=== PATIENT | female | born 1945 | race Caucasian/White ===

== ENCOUNTER 2020-03-12 08:56 | Outpatient (REF) | payer MEDICARE, OTHER, SELFPAY | END 2020-03-12 08:57 | disposition home or self-care (01) | LOC: HO.10HDL 08:56 | PROVIDERS: Visit Provider Obstetrics & Gynecology Female Pelvic Medicine and Reconstructive Surgery | DX: N81.2 Incomplete uterovaginal prolapse (principal) | CPT/HCPCS: 87086 ==

== ENCOUNTER 2020-04-02 08:23 | Outpatient (REF) | payer MEDICARE, SELFPAY ==
--- NOTE | 2020-04-02 08:31 | CT_ITS ---
EXAMINATION: CT CHEST WITHOUT CONTRAST CLINICAL INFORMATION: Non-small cell lung cancer COMPARISON: Previous chest CT scans most recent 01/27/2020 TECHNIQUE: Multidetector volumetric CT imaging of the chest was done. Axial MIP volume rendering provided. Sagittal and coronal reformatted images were obtained. This CT examination was performed using dose optimization techniques as appropriate, variously including the following: *Automated exposure control *Adjustment of mA and/or kV according to patient size (this includes techniques or standardized protocols for targeted exams where dose is matched to indication/reason for exam; i.e. extremities or head) *Use of iterative reconstruction technique DLP: 282 mGy-cm FINDINGS: LUNGS: There is evidence of mild emphysema. There are stable postsurgical changes to the left hemithorax following left upper lobe lobectomy with shift of the central mediastinal structures to the left and elevation of the left hemidiaphragm. There are increased peripheral interstitial markings and emphysematous or cystic changes questionable for mild interstitial lung disease. This is greatest in the left lower lobe. There is a 4 mm right middle lobe nodule axial image 305 series 5 that is stable. There is triangular shaped increased density in the peripheral or subpleural right lower lobe adjacent to the major fissure axial image 332 series 5 that is stable. MEDIASTINUM: There is a right jugular port with tip projecting over the cavoatrial junction. The heart does not appear enlarged. There is coronary artery calcification. There is no pericardial effusion. The thoracic aorta is normal in caliber. There are small mediastinal lymph nodes that are stable. Largest lymph nodes are AP window region. There are no enlarged hilar or mediastinal lymph nodes. PLEURA: There is a trace left pleural effusion that appears unchanged. There is no right pleural effusion. AXILLA: No lymphadenopathy. UPPER ABDOMEN: The the liver is low in attenuation suggestive of fatty infiltration. There may be diverticulosis of the colon. OSSEOUS STRUCTURES: There is a T9 and T10 hemivertebrae and scoliosis of the thoracic spine convex to the left. There are degenerative changes of the spine and at the hip joints. CT/CT chest wo con IMPRESSION: Stable postsurgical changes following Left upper lobe lobectomy. Stable small right pulmonary nodules. Question mild interstitial disease.
== END 2020-04-02 08:24 | disposition home or self-care (01) ==
LOC: HO.CT 08:23
PROVIDERS: PCP Internal Medicine; Visit Provider Surgery
DX: C34.12 Malignant neoplasm of upper lobe, left bronchus or lung (principal)
CPT/HCPCS: 71250

== ENCOUNTER → 2020-04-23 09:43 | Outpatient (BNVA) | payer MEDICARE, SELFPAY | PROVIDERS: PCP Internal Medicine; Referring Provider Internal Medicine; Visit Provider Surgery | DX: J44.9 Chronic obstructive pulmonary disease, unspecified (principal); C34.90 Malignant neoplasm of unspecified part of unspecified bronchus or lung | CPT/HCPCS: 99202; 99215 ==

== ENCOUNTER 2020-04-29 07:58 | Outpatient (REF) | payer MEDICARE, SELFPAY ==
--- NOTE | 2020-04-29 16:41 | PFT_ITS ---
Forced vital capacity is slightly reduced. FEV1 normal. [id number] and MVV are normal. Post bronchodilator therapy, there is no significant change. Total lung capacity is slightly reduced. Residual volume moderately reduced and diffusion capacity moderately reduced. CONCLUSION: A mild degree of restrictive pulmonary disorder is noted. No significant obstructive airway disorder. Diffusion capacity is decreased somewhat out of proportion to the other values. This may be due to interstitial lung disease/pulmonary vascular disease or non-pulmonary factors. Clinical correlation is recommended. Roberto Brink MD MSB/MODL / [id number]
== END 2020-04-29 07:59 | disposition home or self-care (01) ==
LOC: HO.RESP 07:58
PROVIDERS: PCP Internal Medicine; Visit Provider Internal Medicine Pulmonary Disease
DX: J44.9 Chronic obstructive pulmonary disease, unspecified (principal); R06.02 Shortness of breath
CPT/HCPCS: 94060; 94727; 94729; 99212

== ENCOUNTER 2020-05-17 07:55 | Outpatient (REF) | payer MEDICARE, SELFPAY ==
[2020-05-17 10:56] LABS: Alanine Aminotransferase 27 U/L (0-31); Albumin Level 4.5 g/dL (3.5-5.0); Alkaline Phosphatase 86 U/L (39-117); Anion Gap 15 (12-20); Aspartate Amino Transferase 25 U/L (5-31); Bilirubin Total 0.4 mg/dL (0.0-1.0); Blood Urea Nitrogen 8 mg/dL (9-16); Calcium 9.4 mg/dL (8.4-10.2); Carbon Dioxide 27 mmol/L (22-29); Chloride 103 mmol/L (96-108); Cholesterol 239 mg/dL; Estimated Glomerular Filt Rate > 60; Glucose Fasting 109 mg/dL (60-99); HDL Cholesterol 41 mg/dL; LDL Cholesterol Calculated 147 mg/dl; Potassium 3.9 mmol/l (3.3-5.1); Sodium 141 mmol/L (135-145); Total Protein 7.8 g/dL (6.5-8.0); Triglycerides 259 mg/dL
[2020-05-17 11:17] LABS: Free T4 (Free Thyroxine) 0.84 ng/dL (0.71-1.85); Thyroid Stimulating Hormone 1.23 uIU/mL (0.32-4.0)
== END 2020-05-17 07:56 | disposition home or self-care (01) ==
LOC: HO.10HDL 07:55
PROVIDERS: PCP Internal Medicine; Visit Provider Internal Medicine
DX: I10 Essential (primary) hypertension (principal); E03.9 Hypothyroidism, unspecified; E78.00 Pure hypercholesterolemia, unspecified
CPT/HCPCS: 80053; 80061; 84439; 84443

== ENCOUNTER 2020-05-26 08:53 | Outpatient (REF) | payer MEDICARE, SELFPAY ==
[2020-05-26 11:13] LABS: Vitamin D 25-OH Total 32.8 ng/mL (>30)
[2020-05-26 11:20] LABS: Vitamin B12 339 pg/mL (200-900)
== END 2020-05-26 08:54 | disposition home or self-care (01) ==
LOC: HO.10HDL 08:53
PROVIDERS: Visit Provider Internal Medicine
DX: C34.12 Malignant neoplasm of upper lobe, left bronchus or lung (principal); I10 Essential (primary) hypertension; R53.1 Weakness; Z79.899 Other long term (current) drug therapy
CPT/HCPCS: 36415; 82306; 82607

== ENCOUNTER 2020-06-23 | Outpatient (REF) | payer MEDICARE, SELFPAY | END 2020-06-23 00:01 | disposition home or self-care (01) | LOC: HO.VC | PROVIDERS: Visit Provider Internal Medicine | DX: Z23 Encounter for immunization (principal) | CPT/HCPCS: 0011A ==

== ENCOUNTER → 2020-07-14 15:30 | Outpatient (BNV) | payer MEDICARE, SELFPAY | PROVIDERS: PCP Internal Medicine; Visit Provider Internal Medicine | DX: C34.12 Malignant neoplasm of upper lobe, left bronchus or lung (principal); Z92.21 Personal history of antineoplastic chemotherapy | CPT/HCPCS: 99213; 99214; G2211 ==

== ENCOUNTER 2020-07-20 | Outpatient (REF) | payer MEDICARE, SELFPAY | END 2020-07-20 00:01 | disposition home or self-care (01) | LOC: HO.VC | PROVIDERS: Visit Provider Internal Medicine | DX: Z23 Encounter for immunization (principal) | CPT/HCPCS: 0012A ==

== ENCOUNTER 2020-07-22 12:41 | Outpatient (REF) | payer MEDICARE, SELFPAY ==
[2020-07-22 13:07] LABS: Glucose Urine UA NEG (NEG); Leukocyte Esterase Urine 3+ (NEG); Nitrite Urine NEG (NEG); UACC Culture Trigger YES; Urine Blood 1+ (NEG); Urine Ketones NEG (NEG); Urine Protein NEG (NEG-TRACE)
[2020-07-22 13:08] LABS: Appearance Urine HAZY; Color Urine YELLOW
[2020-07-22 13:14] LABS: Bacteria Urine 2+ /LPF; RBC Urine 0-2 /HPF (0); Squamous Epithelial Cell Urine 1+ /LPF
== END 2020-07-22 12:42 | disposition home or self-care (01) ==
LOC: HO.10HDLNP 12:41
PROVIDERS: Visit Provider Internal Medicine
DX: R30.0 Dysuria (principal)
CPT/HCPCS: 81001; 81003; 87086; 87147

== ENCOUNTER → 2020-07-23 09:04 | Outpatient (BNVA) | payer MEDICARE, SELFPAY | PROVIDERS: PCP Internal Medicine; Visit Provider Internal Medicine Pulmonary Disease | DX: J44.9 Chronic obstructive pulmonary disease, unspecified (principal) | CPT/HCPCS: 99212 ==

== ENCOUNTER 2020-08-09 07:56 | Outpatient (REF) | payer MEDICARE, SELFPAY ==
--- NOTE | 2020-08-09 | PFT_ITS ---
INDICATIONS: Lung cancer and COPD. SPIROMETRY: The FEV1 to FVC of 84% with an FEV1 of 1.56 L, which is 95% predicted and an FVC of 1.86 L, which is 34% predicted. No significant response to bronchodilators noted. Maximum voluntary ventilation predicted. LUNG VOLUMES: Total lung capacity 73% predicted. DIFFUSION CAPACITY: DLCO 47% predicted. COMPARISONS: None. INTERPRETATION: No obstructive ventilatory defect. No significant response to bronchodilators noted. Normal maximum voluntary ventilation. The patient does have a mild restrictive ventilatory defect. In addition to that, there is [id number] diffusion impairment secondary to the COPD, lung cancer . Clinical correlation warranted. Milton Wu MD MR/MODL / [id number]
== END 2020-08-09 07:57 | disposition home or self-care (01) ==
LOC: HO.RESP 07:56
PROVIDERS: PCP Internal Medicine; Visit Provider Internal Medicine Pulmonary Disease
DX: J44.9 Chronic obstructive pulmonary disease, unspecified (principal)
CPT/HCPCS: 94060; 94727; 94729

== ENCOUNTER 2020-09-28 09:35 | Emergency (ER) | payer MEDICARE, SELFPAY ==
--- NOTE | ~2020-09-28 | US_ITS ---
EXAMINATION: US VENOUS ULTRASOUND WITH DOPPLER LOWER EXTREMITY, LEFT CLINICAL INFORMATION: Pain and swelling COMPARISON: None TECHNIQUE: Ultrasound of the deep veins is performed from the hip to the calf with compression sonography and color and pulse Doppler assessment. Spectral analysis with color-flow imaging is performed. FINDINGS: There is normal venous compression and respiratory variation and augmented flow. The visualized common femoral vein, superficial femoral vein, profunda femoral vein, popliteal vein, and the trifurcation region shows no evidence of deep venous thrombosis. There is no significant popliteal fossa cyst. US/US venous duplex LE LT IMPRESSION: No DVT demonstrated in the left lower extremity.
--- NOTE | ~2020-09-28 | XR_ITS ---
EXAMINATION: XR ANKLE, LEFT CLINICAL INFORMATION: Pain and swelling COMPARISON: None TECHNIQUE: AP, lateral, and mortise views of the left ankle. FINDINGS: There is no visible acute fracture, dislocation or subluxation. The ankle mortise and subtalar joints are normal. A moderate to large calcaneal heel and a small retrocalcaneal enthesophyte is seen. There is minimal dorsal intertarsal spurring. There is mild medial malleolar soft tissue swelling.. XR/XR ankle LT min 3V IMPRESSION: No acute fracture or dislocation. Mild medial malleolar soft tissue swelling. Moderate to large calcaneal heel and small retrocalcaneal enthesophytes.
[2020-09-28 10:01] VITALS: BP 163/63; PULSE 59; RESP 20; O2SAT 97; BMI 36.3
--- NOTE | 2020-09-28 10:23 | ED.EXTPRO ---
HPI - Extremity Problem General Chief complaint: Extremity Problem Stated complaint: lt leg pain Time Seen by Provider: 09/28/20 09:59 Source: patient Mode of arrival: ambulatory Limitations: no limitations History of Present Illness HPI Narrative: 75 y/o female with history of lung cancer s/p OTF lobectomy 09/2019 and chemotherapy, COPD, anxiety, HTN who presents with left ankle and lower leg pain and swelling that started a few days ago. She states she noticed both of her legs were a little swollen the other day. She has been sitting in the recliner with them elevated and she has been compliant with her lasix 20 mg per day. She has increased her water intake to 5 bottles per day. She states Sunday her left ankle was more swollen that the right. Today the swelling is worse and radiates up into her left lower leg. She had severe pain with walking and putting pressure on her left foot so she came to the ER for evaluation. She has chronic SOB which is unchanged from her baseline. She denies chest pain. No fever, chills, or skin changes. MD Complaint: extremity pain and extremity swelling Onset (ago): day(s) Pain Consistency: constant Location: left and lower extremity Quality: aching Radiation: proximal Relieving factors: immobilization, elevation and rest Exacerbating factors: walking Associated symptoms: shortness of breath (chronic, unchanged) Context: history of DVT (remote history as a teenager after a horse riding accident ) Related Data Home Medications Medication Instructions Recorded Confirmed albuterol sulfate 2 puff INHALATION Q4-6H PRN 04/13/20 04/23/20 alprazolam 0.25 mg PO DAILY 04/13/20 04/23/20 atenolol 25 mg PO DAILY 04/13/20 04/23/20 dexamethasone 2 mg PO DAILY 04/13/20 04/23/20 furosemide 20 mg PO DAILY 04/13/20 04/23/20 hydrochlorothiazide 12.5 mg PO DAILY 04/13/20 04/23/20 levothyroxine 25 mcg PO DAILY 04/13/20 04/23/20 meclizine 12.5 mg PO DAILY 04/13/20 04/23/20 omeprazole 20 mg PO DAILY 04/13/20 04/23/20 ondansetron HCl 8 mg PO DAILY 04/13/20 04/23/20 tramadol 50 mg PO DAILY 04/13/20 04/23/20 Previous Rx's Medication Instructions Recorded tiotropium 2.5 mcg-olodaterol 2.5 2 puff INHALATION DAILY 30 Days #1 07/23/20 mcg/actuation mist for inhalation ea Allergies Allergy/AdvReac Type Severity Reaction Status Date / Time meperidine [From DEMEROL] Allergy Mild GI SYMPTOMS Verified 07/23/20 09:14 Penicillins [PCN] Allergy Mild RASH Verified 07/23/20 09:14 penicillin V Allergy Unknown rash Verified 07/23/20 09:14 codeine [CODEINE] AdvReac Mild GI UPSET Verified 07/23/20 09:14 morphine [MORPHINE] AdvReac Mild GI UPSET Verified 07/23/20 09:14 Review of Systems Review of Systems: Constitutional: No Fever, No Chills ENT/Mouth: No sore throat, No Rhinorrhea, No Swallowing Difficulty Cardiovascular: No Chest Pain, + SOB, No Orthopnea, + Edema Respiratory: No Cough, No Sputum, No Wheezing, + dyspnea Gastrointestinal: No Nausea, No Vomiting, No Diarrhea, No abdominal Pain Musculoskeletal: + joint pain, No Myalgias Skin: No Skin Lesions, No rash Neuro: No Weakness, No Numbness, No Dizziness, No Headache Psych: + Anxiety/Panic, No Depression Heme/Lymph: No Bruising, No Lymphadenopathy Endocrine: No Polyuria, No Polydipsia PMFSH Past Medical History Medical History Anxiety History of throat problem HTN (hypertension) Hyperlipemia Migraine headache Small cell lung cancer Surgical History History of appendectomy History of cholecystectomy History of removal of cyst Family History Family History Mother Breast cancer Father Throat cancer Sister Breast cancer Lupus GI bleed Social History Social History (Updated 07/14/20 @ 15:17 by Zahra Brito) Household Members: None Alcohol intake: never Smoking Status: Former smoker Years Smoked: 25 Use of substances other than those prescribed or required for medical reasons: No Advance Directives: No Advance Directives Information Provided: No Physical Exam Vital Signs: Vital Signs: Last Vital Signs Pulse 60 09/28/20 11:52 Resp 16 09/28/20 11:52 BP 135/70 09/28/20 11:52 Pulse Ox 96 09/28/20 11:52 Body Mass Index 36.3 Appearance: Alert. Oriented X3. No acute distress. HEENT: normal inspection CVS: Normal heart rate and rhythm. Pulses normal. Respiratory: No respiratory distress. Skin: Skin warm and dry. Normal skin color. Normal skin turgor. No rashes. Extremities: left medial ankle with swelling and tenderness, slight warmth. tenderness along medial lower leg with mild LLE swelling, non-pitting. normal ankle ROM. NV intact distally. 2+ DP pulses. Neuro: Oriented X 3. No motor deficit. No sensory deficit. Course Course Course Narrative: 75 y/o female with history of lung cancer, HTN, HLD, ?CHF who presents with LLE pain and swelling. No erythema to suggest infection. Need to r/o DVT. Will also get XR to assess. Reevaluation(s) Reevaluation #1: U/S showed NO DVT. XR showed only mild soft tissue swelling, no fracutres or dislocations. BNP is normal. Ankle wrapped in an ANNA for compression/support. Advised to elevated and ice use as needed for swelling. She has an appointment with her Oncologist tomorrow. She will also f/u with her PCP. Advised to continue lasix at current dose. Stable for d/c home. MDM - Extremity (Nontraumatic) Lab Data Result diagrams: 09/28/20 11:40 09/28/20 11:40 Labs: Lab Results 09/28/20 09/28/20 09/28/20 Range/Units 11:40 11:40 11:40 WBC 7.9 (4.8-10.8) X10*3/uL RBC 4.51 (4.20-5.50) X10*6/uL Hgb 13.6 (12.0-16.0) g/dl Hct 40.6 (37-47) % MCV 90.0 (80-98) fL MCH 30.2 (27.0-33.0) pg MCHC 33.5 (31.0-35.0) g/dl RDW 12.9 (11.0-16.0) % Plt Count 262 (160-400) X10*3/uL MPV 9.4 (9.4-12.3) fL Immature Gran % (Auto) 0.3 (0.0-0.4) % Neut % (Auto) 61.1 (45-73) % Lymph % (Auto) 27.6 (20-40) % Brewster % (Auto) 8.0 (2-11) % Eos % (Auto) 2.4 (0-4) % Baso % (Auto) 0.6 (0-2) % Lymph # (Auto) 2.2 (1.2-4.9) X10*3/uL Brewster # (Auto) 0.6 (0.1-1.2) X10*3/uL Eos # (Auto) 0.2 (0.0-0.4) X10*3/uL Baso # (Auto) 0.1 (0.0-0.2) X10*3/uL Abs Immat Gran (auto) 0.02 (0.00-0.03) X10*3/uL Absolute Neuts (auto) 4.8 (2.0-8.3) X10*3/uL Absolute Nucleated RBC 0.000 (0.0-0.012) X10*3/uL Nucleated RBC % (auto) 0.0 (0.0-0.2) /100WBC PT (10.8-13.0) SEC INR (0.9-1.1) APTT (24.1-38.0) SEC Sodium 140 (135-145) mmol/L Potassium 4.0 D (3.3-5.1) mmol/L Chloride 103 (96-108) mmol/L Carbon Dioxide 26 (22-29) mmol/L Anion Gap 15 (12-20) BUN 8 L (9-16) mg/dL Creatinine 0.72 (0.5-1.4) mg/dL Estim Creat Clear Calc 62.4 Estimated GFR > 60 Random Glucose 101 (60-115) mg/dL Calcium 9.6 (8.4-10.2) mg/dL B-Natriuretic Peptide 25 (<100) pg/mL 09/28/20 Range/Units 12:22 WBC (4.8-10.8) X10*3/uL RBC (4.20-5.50) X10*6/uL Hgb (12.0-16.0) g/dl Hct (37-47) % MCV (80-98) fL MCH (27.0-33.0) pg MCHC (31.0-35.0) g/dl RDW (11.0-16.0) % Plt Count (160-400) X10*3/uL MPV (9.4-12.3) fL Immature Gran % (Auto) (0.0-0.4) % Neut % (Auto) (45-73) % Lymph % (Auto) (20-40) % Brewster % (Auto) (2-11) % Eos % (Auto) (0-4) % Baso % (Auto) (0-2) % Lymph # (Auto) (1.2-4.9) X10*3/uL Brewster # (Auto) (0.1-1.2) X10*3/uL Eos # (Auto) (0.0-0.4) X10*3/uL Baso # (Auto) (0.0-0.2) X10*3/uL Abs Immat Gran (auto) (0.00-0.03) X10*3/uL Absolute Neuts (auto) (2.0-8.3) X10*3/uL Absolute Nucleated RBC (0.0-0.012) X10*3/uL Nucleated RBC % (auto) (0.0-0.2) /100WBC PT 15.2 H (10.8-13.0) SEC INR 1.3 H (0.9-1.1) APTT 36.5 (24.1-38.0) SEC Sodium (135-145) mmol/L Potassium (3.3-5.1) mmol/L Chloride (96-108) mmol/L Carbon Dioxide (22-29) mmol/L Anion Gap (12-20) BUN (9-16) mg/dL Creatinine (0.5-1.4) mg/dL Estim Creat Clear Calc Estimated GFR Random Glucose (60-115) mg/dL Calcium (8.4-10.2) mg/dL B-Natriuretic Peptide (<100) pg/mL Discharge Plan Discharge Clinical Impression: Ankle pain, left Qualifiers: Chronicity: acute Qualified Code(s): M25.572 - Pain in left ankle and joints of left foot Patient Disposition: Home, Self-Care Instructions: Swollen Joint (ED) Additional Instructions: Your ultrasound today did not show any evidence of blood clot. Your x-ray did not show any fractures. Your blood workup was unremarkable. Recommend wearing the ANNA wrap for compression and support. Elevate your leg when possible. Recommend ice several times per day. Recommend trial of anti-inflammatory medication such as Motrin, Advil, Aleve as needed for pain. Follow up with your doctor as needed. If you have worsening symptoms come back to the ER for further evaluation. Prescriptions: No Action ondansetron HCl 8 mg tablet 8 mg PO DAILY RF: 0 atenolol 25 mg tablet 25 mg PO DAILY RF: 0 meclizine 12.5 mg tablet 12.5 mg PO DAILY RF: 0 tramadol 50 mg tablet 50 mg PO DAILY RF: 0 levothyroxine 25 mcg tablet 25 mcg PO DAILY RF: 0 alprazolam 0.25 mg tablet 0.25 mg PO DAILY RF: 0 dexamethasone 2 mg tablet 2 mg PO DAILY RF: 0 omeprazole 20 mg capsule,delayed release(DR/EC) 20 mg PO DAILY RF: 0 furosemide 20 mg tablet 20 mg PO DAILY RF: 0 albuterol sulfate 90 mcg/actuation HFA aerosol inhaler 2 puff inhalation Q4-6H PRN (Reason: Wheezing) RF: 0 hydrochlorothiazide 12.5 mg tablet 12.5 mg PO DAILY RF: 0 Stiolto Respimat 2.5-2.5 mcg/actuation mist 2 puff inhalation DAILY 30 Days Qty: 1 RF: 6
--- NOTE | 2020-09-28 10:54 | PC.NURSE ---
Pt currently at U/S, plan for labs upon return
[2020-09-28 11:48] LABS: MANUAL DIFF FLAG NO
[2020-09-28 11:50] LABS: Basophils Absolute Auto 0.1 X10*3/uL (0.0-0.2); Basophils Percent Auto 0.6 % (0-2); Eosinophils Absolute Auto 0.2 X10*3/uL (0.0-0.4); Eosinophils Percent Auto 2.4 % (0-4); Hematocrit 40.6 % (37-47); Hemoglobin 13.6 g/dl (12.0-16.0); Imm Gran Abs Auto 0.02 X10*3/uL (0.00-0.03); Imm Gran Pct Auto 0.3 % (0.0-0.4); Lymphocytes Absolute Auto 2.2 X10*3/uL (1.2-4.9); Lymphocytes Percent Auto 27.6 % (20-40); Mean Corpuscular HGB Conc 33.5 g/dl (31.0-35.0); Mean Corpuscular Hemoglobin 30.2 pg (27.0-33.0); Mean Platelet Volume 9.4 fL (9.4-12.3); Monocytes Absolute Auto 0.6 X10*3/uL (0.1-1.2); Neutrophils Absolute Auto 4.8 X10*3/uL (2.0-8.3); Neutrophils Percent Auto 61.1 % (45-73); Platelet Count 262 X10*3/uL (160-400); Red Blood Count 4.51 X10*6/uL (4.20-5.50); Red Cell Distribution Width 12.9 % (11.0-16.0); White Blood Count 7.9 X10*3/uL (4.8-10.8)
[2020-09-28 11:52] VITALS: BP 135/70; PULSE 60; RESP 16; O2SAT 96
[2020-09-28 12:21] LABS: Anion Gap 15 (12-20); Blood Urea Nitrogen 8 mg/dL (9-16); Calcium 9.6 mg/dL (8.4-10.2); Carbon Dioxide 26 mmol/L (22-29); Chloride 103 mmol/L (96-108); Creatinine Clr Calc Pharmacy 62.4; Estimated Glomerular Filt Rate > 60; Glucose Random 101 mg/dL (60-115); Sodium 140 mmol/L (135-145)
[2020-09-28 12:29] LABS: B Type Natriuretic Peptide 25 pg/mL (<100)
[2020-09-28 12:32] LABS: INTERNATIONAL NORM RATIO 1.3 (0.9-1.1); Prothrombin Time 15.2 SEC (10.8-13.0)
[2020-09-28 12:35] LABS: Partial Thromboplastin Time 36.5 SEC (24.1-38.0)
== END 2020-09-28 13:07 | disposition home or self-care (01) ==
PROVIDERS: Physician Assistant; Emergency Provider Emergency Medicine; PCP Internal Medicine
DX: M25.572 Pain in left ankle and joints of left foot (principal); M79.605 Pain in left leg; I10 Essential (primary) hypertension; J44.9 Chronic obstructive pulmonary disease, unspecified; Z85.118 Personal history of other malignant neoplasm of bronchus and lung; Z86.718 Personal history of other venous thrombosis and embolism; Z87.891 Personal history of nicotine dependence
CPT/HCPCS: 36415; 73610; 80048; 83880; 85025; 85610; 85730; 93971; 99284

== ENCOUNTER 2020-10-05 08:30 | Outpatient (REF) | payer MEDICARE, SELFPAY ==
--- NOTE | ~2020-10-05 | CT_ITS ---
EXAMINATION: CT CHEST WITHOUT CONTRAST CLINICAL INFORMATION: Malignant non-small cell lung cancer. COMPARISON: CT chest 04/02/2020 TECHNIQUE: Multidetector volumetric CT imaging of the chest was done. Axial MIP volume rendering provided. Sagittal and coronal reformatted images were obtained. This CT examination was performed using dose optimization techniques as appropriate, variously including the following: *Automated exposure control *Adjustment of mA and/or kV according to patient size (this includes techniques or standardized protocols for targeted exams where dose is matched to indication/reason for exam; i.e. extremities or head) *Use of iterative reconstruction technique DLP: 163 mGy-cm FINDINGS: TEACHER RESOURCE: The lungs are somewhat expanded. There is a left hemidiaphragm. The right central port with its tip in mid to distal SVC. LUNGS: Postsurgical changes left lung with loss of left lung volume, ipsilateral mediastinal shift and elevation of left hemidiaphragm. There are mild emphysematous changes in both upper lobes with peripheral prominent interstitial markings especially in both lower lobes dependent segments. There is a 4 mm nodule in the right middle lobe axial image 294/5, 6 mm nodule likely intrabronchiolar in right posterior basal segment image 322/5 focal thickening along the right lateral major fissure image 317/5, measuring 8 x 4 mm. No new additional nodules seen. MEDIASTINUM: The thyroid lobes are symmetrical and normal. The central trachea and the bronchi widely patent. Heart size and the great vessels are normal caliber. There are coronary artery calcifications present. There is a right jugular central port with its tip in distal SVC. There is no pericardial effusion. PLEURA: There is no pleural effusion. No pleural mass or thickening. AXILLA: There are small shotty lymph nodes in left axilla with the largest lymph node measuring 1.8 x 0.9 cm. They're unchanged. UPPER ABDOMEN: Visualized liver is diffusely attenuated without any focal lesions or intrahepatic ductal dilatation. The spleen, bilateral adrenal glands and the pancreas is unremarkable OSSEOUS STRUCTURES: There is likely T9 or T10 hemivertebra with fusion deformity. Moderate levoscoliosis is noted. There is no lytic process CT/CT chest wo con IMPRESSION: Left upper lobectomy. Stable pulmonary nodules. No new pulmonary nodules seen. Bilateral upper and lower lobe peripheral subpleural-based prominent markings likely chronic interstitial lung disease. There is underlying emphysema. No acute pneumonic process seen.
== END 2020-10-05 08:31 | disposition home or self-care (01) ==
LOC: HO.CT 08:30
PROVIDERS: PCP Internal Medicine; Visit Provider Surgery
DX: C34.90 Malignant neoplasm of unspecified part of unspecified bronchus or lung (principal); Z90.2 Acquired absence of lung [part of]
CPT/HCPCS: 71250

== ENCOUNTER 2020-10-08 15:32 | Outpatient (REF) | payer MEDICARE, SELFPAY ==
--- NOTE | ~2020-10-08 | XR_ITS ---
EXAMINATION: XR KNEE, LEFT XR HIP, LEFT CLINICAL INFORMATION: Left knee pain. COMPARISON: None TECHNIQUE: Left knee 4 views. Left hip 2 views. FINDINGS: Left Knee: There is mild loss of tricompartment joint space with moderate anterior superior patellar enthesophyte. There is moderate anterior inferior enthesophyte as well. There is no abnormal joint effusion. No loose bodies or bony erosive changes seen. LEFT HIP: The left hip joint space is minimally heterogeneous. No bony erosive changes, loose bodies or periarticular spurring seen. There are small enthesophytes along the greater trochanter. Vascular calcification visualized and a left vaginal pessary is noted. XR/XR knee LT 4V IMPRESSION: Mild degenerative changes left knee joint and left hip joint. There is a moderate size anterior superior patellar enthesophyte but no acute fracture. There is no acute fracture or dislocation left hip. There is moderate enthesophyte along greater tuberosity.
--- NOTE | ~2020-10-08 | XR_ITS ---
EXAMINATION: XR KNEE, LEFT XR HIP, LEFT CLINICAL INFORMATION: Left knee pain. COMPARISON: None TECHNIQUE: Left knee 4 views. Left hip 2 views. FINDINGS: Left Knee: There is mild loss of tricompartment joint space with moderate anterior superior patellar enthesophyte. There is moderate anterior inferior enthesophyte as well. There is no abnormal joint effusion. No loose bodies or bony erosive changes seen. LEFT HIP: The left hip joint space is minimally heterogeneous. No bony erosive changes, loose bodies or periarticular spurring seen. There are small enthesophytes along the greater trochanter. Vascular calcification visualized and a left vaginal pessary is noted. XR/XR hip LT min 2V IMPRESSION: Mild degenerative changes left knee joint and left hip joint. There is a moderate size anterior superior patellar enthesophyte but no acute fracture. There is no acute fracture or dislocation left hip. There is moderate enthesophyte along greater tuberosity.
== END 2020-10-08 15:33 | disposition home or self-care (01) ==
LOC: HO.XRAY 15:32
PROVIDERS: PCP Internal Medicine; Visit Provider Internal Medicine
DX: M25.552 Pain in left hip (principal); M25.562 Pain in left knee
CPT/HCPCS: 73502; 73564

== ENCOUNTER 2020-10-15 01:54 | Observation (INO) | payer MEDICARE, SELFPAY ==
[2020-10-15] VITALS (16 sets, daily range): BP systolic 107–210; BP diastolic 49–108; PULSE 47–81; RESP 15–20; TEMP 35.9–36.6; O2SAT 95–98; BMI 35.5
--- NOTE | 2020-10-15 | ECG_ITS ---
Test Reason : DIZZINESS Blood Pressure : / mmHG Vent. Rate : 056 BPM Atrial Rate : 056 BPM P-R Int : 228 ms QRS Dur : 078 ms QT Int : 446 ms P-R-T Axes : 069 -04 016 degrees QTc Int : 430 ms Sinus bradycardia prolonged MT interval cannot exclude old anterior infarct but could be from body habitus When compared with ECG of 19-JUL-2019 18:53, No significant changes seen Referred By: Generic ED Physician Electronically Signed By:CASSIE GAMBINO
--- NOTE | ~2020-10-15 | CT_ITS ---
EXAMINATION: CT HEAD WITHOUT CONTRAST CLINICAL INFORMATION: Worsening headache. High blood pressure. COMPARISON: 02/18/2020 TECHNIQUE: Contiguous axial imaging was performed from the skull base to vertex without intravenous contrast. This CT examination was performed using dose optimization techniques as appropriate, variously including the following: * Automated exposure control * Adjustment of mA and/or kV according to patient size (this includes techniques or standardized protocols for targeted exams where dose is matched to indication/reason for exam; i.e. extremities or head) Use of iterative reconstruction technique DLP: 564 mGy-cm. FINDINGS: There is no evidence of acute intracranial hemorrhage or territorial infarction. No abnormal mass effect or midline shift is seen. Tapia to white matter differentiation is well preserved. No extra-axial fluid collections are identified. No hydrocephalus. Proportional prominence of the ventricles and sulcal spaces is consistent with mild volume loss. There is no abnormal attenuation within the brain parenchyma. The osseous structures and soft tissues are normal. The mastoid air cells and visualized portions of the paranasal sinuses are well aerated. CT/CT head/brain wo con IMPRESSION: No acute intracranial pathology.
[2020-10-15 02:03] LABS: Glucose, Whole Blood 89 mg/dL (60-115)
--- NOTE | 2020-10-15 02:59 | ED_ITS ---
HPI - General Adult General Chief complaint: Dizziness Stated complaint: headache dizness Time Seen by Provider: 10/15/20 02:48 Source: patient Mode of arrival: ambulatory Limitations: no limitations History of Present Illness HPI narrative: Patient comes emergency room complaining of head pressure. Patient states it started yesterday, it started with sinus pressure over the maxillary sinuses and temporal sinuses, then she started having global headache. Patient states that the headache is making her dizzy. Patient states she has been diagnosed with vertigo before, every time she moves her head side to side, everything started spinning. Patient had nausea, no vomiting or diarrhea. Patient denies chest pain or shortness of breath. For headache, patient states that she has been taking Tylenol. At the moment refuses to take any other medication for headache. Patient has been taking meclizine at home for the vertigo. States she ran out of her p.r.n. medications yesterday Related Data Home Medications Medication Instructions Recorded Confirmed albuterol sulfate 2 puff INHALATION Q4-6H PRN 04/13/20 04/23/20 alprazolam 0.25 mg PO DAILY 04/13/20 04/23/20 atenolol 25 mg PO DAILY 04/13/20 04/23/20 furosemide 20 mg PO DAILY 04/13/20 04/23/20 levothyroxine 25 mcg PO DAILY 04/13/20 04/23/20 meclizine 12.5 mg PO DAILY 04/13/20 04/23/20 omeprazole 20 mg PO DAILY 04/13/20 04/23/20 ondansetron HCl 8 mg PO DAILY 04/13/20 04/23/20 tramadol 50 mg PO DAILY PRN 04/13/20 04/23/20 Allergies Allergy/AdvReac Type Severity Reaction Status Date / Time meperidine [From DEMEROL] Allergy Mild GI SYMPTOMS Verified 07/23/20 09:14 Penicillins [PCN] Allergy Mild RASH Verified 07/23/20 09:14 penicillin V Allergy Unknown rash Verified 07/23/20 09:14 codeine [CODEINE] AdvReac Mild GI UPSET Verified 07/23/20 09:14 morphine [MORPHINE] AdvReac Mild GI UPSET Verified 07/23/20 09:14 Review of Systems Review of Systems: Constitutional : No Weight loss, No Fever, No Chills, No Night Sweats, No Fatigue, No Malaise ENT/Mouth : No Hearing loss, No Ear Pain, No Nasal Congestion, complaining of sinus pressure, No Hoarseness, No sore throat, No Rhinorrhea, No Swallowing Difficulty Eyes: No Eye Pain, No Swelling, No Redness, No Foreign Body, No Discharge, No Vision Changes Cardiovascular : No Chest Pain, No SOB, No Dyspnea on Exertion, No Orthopnea, No Edema, No Palpitations Respiratory : No Cough, No Sputum, No Wheezing, No Smoke Exposure, No Dyspnea Gastrointestinal : No Nausea, No Vomiting, No Diarrhea, No Constipation, No abdominal Pain, No Hematochezia, No Melena Genitourinary : no irregular bleeding, No Dysuria, No Urinary Frequency, No Hematuria, No Urinary Incontinence, No Urgency, No Flank Pain, No Urinary Flow Changes, No Hesitancy Musculoskeletal : No joint pain, No Myalgias, No Joint Swelling Skin : No Skin Lesions, No rash Neuro : No Weakness, No Numbness, No Paresthesias, No Loss of Consciousness, complaining of vertigo and frontal and occipital headache Psych : No Anxiety/Panic, No Depression, No SI/HI/AH/VH, No Social Issues, Heme/Lymph: No Bruising, No Bleeding,No Lymphadenopathy Endocrine : No Polyuria, No Polydipsia, No Temperature Intolerance [facility] Past Medical History Medical History Anxiety Former smoker, stopped smoking in distant past History of throat problem HTN (hypertension) Hyperlipemia Migraine headache Small cell lung cancer, left upper lobe Surgical History History of appendectomy (~1982) History of bronchoscopy (~09/17/19) History of cholecystectomy (~1982) History of lobectomy of lung (~09/30/19) History of removal of cyst (~1988) Family History Family History (Updated 10/04/20 @ 12:50 by Ai Birmingham PA-C) Mother Breast cancer Father Throat cancer Sister Breast cancer Lupus GI bleed Social History Social History (Updated 10/04/20 @ 12:49 by Ai Birmingham PA-C) Household Members: Children and None Household Members Other:: lives with her son Alcohol intake: never Patient Tobacco Use Status: Former Tobacco user Years Smoked: 25 Smoked in Last 30 Days: No Use of substances other than those prescribed or required for medical reasons: No Advance Directives: No Advance Directives Information Provided: No 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 Oriented X3. No acute distress. Eyes: Pupils equal, round and reactive to light. Mild bilateral nystagmus with head movement ENT: Pharynx normal. Neck: Normal inspection. Neck supple. No lymph nodes noted. No crepitus CVS: Normal heart rate and rhythm. Pulses normal. Normal S1 and S2 Respiratory: No respiratory distress. Breath sounds normal. No Wheezing. No r ales Abdomen: Soft and nontender. No rigidity. No distention. good BS x4 Skin: Skin warm and dry. Normal skin color. Normal skin turgor. Extremities: No lower extremity edema. Neuro: Oriented X 3. No motor deficit. No sensory deficit. Moving all extermities. No slurred speech. Course Course Course Narrative: Patient was given several doses of meclizine and Valium. Patient is still unable to walk by herself. The room spins every time she moves her head. 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 Patient is by herself, unable to take care of herself. I discussed the patient with our hospitalist Dr. Ibrahim. Patient is being admitted. Patient agrees with plan. Medical Decision Making Lab Data Result diagrams: 10/15/20 03:16 10/15/20 03:16 Labs: Lab Results 10/15/20 10/15/20 10/15/20 Range/Units 02:00 03:16 03:16 WBC 9.1 (4.8-10.8) X10*3/uL RBC 4.45 (4.20-5.50) X10*6/uL Hgb 13.3 (12.0-16.0) g/dl Hct 39.8 (37-47) % MCV 89.4 (80-98) fL MCH 29.9 (27.0-33.0) pg MCHC 33.4 (31.0-35.0) g/dl RDW 13.0 (11.0-16.0) % Plt Count 263 (160-400) X10*3/uL MPV 9.3 L (9.4-12.3) fL Immature Gran % (Auto) 0.3 (0.0-0.4) % Neut % (Auto) 56.5 (45-73) % Lymph % (Auto) 32.8 (20-40) % Barton % (Auto) 7.7 (2-11) % Eos % (Auto) 1.8 (0-4) % Baso % (Auto) 0.9 (0-2) % Lymph # (Auto) 3.0 (1.2-4.9) X10*3/uL Barton # (Auto) 0.7 (0.1-1.2) X10*3/uL Eos # (Auto) 0.2 (0.0-0.4) X10*3/uL Baso # (Auto) 0.1 (0.0-0.2) X10*3/uL Abs Immat Gran (auto) 0.03 (0.00-0.03) X10*3/uL Absolute Neuts (auto) 5.2 (2.0-8.3) X10*3/uL Absolute Nucleated RBC 0.000 (0.0-0.012) X10*3/uL Nucleated RBC % (auto) 0.0 (0.0-0.2) /100WBC Sodium 142 (135-145) mmol/L Potassium 4.0 (3.3-5.1) mmol/L Chloride 102 (96-108) mmol/L Carbon Dioxide 29 (22-29) mmol/L Anion Gap 15 (12-20) BUN 9 (9-16) mg/dL Creatinine 0.76 (0.5-1.4) mg/dL Estim Creat Clear Calc 58.4 Estimated GFR > 60 POC Glucose 89 (60-115) mg/dL Random Glucose 108 (60-115) mg/dL Calcium 9.7 (8.4-10.2) mg/dL Troponin I High Sens (<3.5-17.0) ng/L 10/15/20 10/15/20 Range/Units 03:16 06:20 WBC (4.8-10.8) X10*3/uL RBC (4.20-5.50) X10*6/uL Hgb (12.0-16.0) g/dl Hct (37-47) % MCV (80-98) fL MCH (27.0-33.0) pg MCHC (31.0-35.0) g/dl RDW (11.0-16.0) % Plt Count (160-400) X10*3/uL MPV (9.4-12.3) fL Immature Gran % (Auto) (0.0-0.4) % Neut % (Auto) (45-73) % Lymph % (Auto) (20-40) % Barton % (Auto) (2-11) % Eos % (Auto) (0-4) % Baso % (Auto) (0-2) % Lymph # (Auto) (1.2-4.9) X10*3/uL Barton # (Auto) (0.1-1.2) X10*3/uL Eos # (Auto) (0.0-0.4) X10*3/uL Baso # (Auto) (0.0-0.2) X10*3/uL Abs Immat Gran (auto) (0.00-0.03) X10*3/uL Absolute Neuts (auto) (2.0-8.3) X10*3/uL Absolute Nucleated RBC (0.0-0.012) X10*3/uL Nucleated RBC % (auto) (0.0-0.2) /100WBC Sodium (135-145) mmol/L Potassium (3.3-5.1) mmol/L Chloride (96-108) mmol/L Carbon Dioxide (22-29) mmol/L Anion Gap (12-20) BUN (9-16) mg/dL Creatinine (0.5-1.4) mg/dL Estim Creat Clear Calc Estimated GFR POC Glucose (60-115) mg/dL Random Glucose (60-115) mg/dL Calcium (8.4-10.2) mg/dL Troponin I High Sens 6.5 9.3 (<3.5-17.0) ng/L Imaging Data CT scan - head: Radiologist's impression: FINDINGS: There is no evidence of acute intracranial hemorrhage or territorial infarction. No abnormal mass effect or midline shift is seen. Tapia to white matter differentiation is well preserved. No extra-axial fluid collections are identified. No hydrocephalus. Proportional prominence of the ventricles and sulcal spaces is consistent with mild volume loss. There is no abnormal attenuation within the brain parenchyma. The osseous structures and soft tissues are normal. The mastoid air cells and visualized portions of the paranasal sinuses are well aerated. CT/CT head/brain wo con IMPRESSION: No acute intracranial pathology. ECG Data Attestation: I personally reviewed and interpreted this ECG as follows: (Sinus bradycardia, first-degree AV block, no ST segment depression mood elevation, nonspecific T-wave inversion in lead III, QTC 430) Discharge Plan Discharge Clinical Impression: Benign paroxysmal positional vertigo Patient Disposition: Admitted As Inpatient Prescriptions: No Action ondansetron HCl 8 mg tablet 8 mg PO DAILY RF: 0 atenolol 25 mg tablet 25 mg PO DAILY RF: 0 meclizine 12.5 mg tablet 12.5 mg PO DAILY RF: 0 tramadol 50 mg tablet 50 mg PO DAILY PRN (Reason: Pain, Moderate) RF: 0 levothyroxine 25 mcg tablet 25 mcg PO DAILY RF: 0 alprazolam 0.25 mg tablet 0.25 mg PO DAILY RF: 0 omeprazole 20 mg capsule,delayed release(DR/EC) 20 mg PO DAILY RF: 0 furosemide 20 mg tablet 20 mg PO DAILY RF: 0 albuterol sulfate 90 mcg/actuation HFA aerosol inhaler 2 puff inhalation Q4-6H PRN (Reason: Wheezing) RF: 0
[2020-10-15] MEDS: diazePAM 2 MG TABLET PO ×2 (03:10→04:07)
[2020-10-15] MEDS: Acetaminophen 325 MG TABLET 650 MG PO ×3 (03:10→19:36)
[2020-10-15 03:25] LABS: MANUAL DIFF FLAG NO
[2020-10-15 03:26] LABS: Basophils Absolute Auto 0.1 X10*3/uL (0.0-0.2); Basophils Percent Auto 0.9 % (0-2); Eosinophils Absolute Auto 0.2 X10*3/uL (0.0-0.4); Eosinophils Percent Auto 1.8 % (0-4); Hematocrit 39.8 % (37-47); Hemoglobin 13.3 g/dl (12.0-16.0); Imm Gran Abs Auto 0.03 X10*3/uL (0.00-0.03); Imm Gran Pct Auto 0.3 % (0.0-0.4); Lymphocytes Percent Auto 32.8 % (20-40); Mean Corpuscular HGB Conc 33.4 g/dl (31.0-35.0); Mean Corpuscular Hemoglobin 29.9 pg (27.0-33.0); Mean Corpuscular Volume 89.4 fL (80-98); Mean Platelet Volume 9.3 fL (9.4-12.3); Monocytes Absolute Auto 0.7 X10*3/uL (0.1-1.2); Monocytes Percent Auto 7.7 % (2-11); Neutrophils Absolute Auto 5.2 X10*3/uL (2.0-8.3); Neutrophils Percent Auto 56.5 % (45-73); Platelet Count 263 X10*3/uL (160-400); Red Blood Count 4.45 X10*6/uL (4.20-5.50); White Blood Count 9.1 X10*3/uL (4.8-10.8)
[2020-10-15 03:47] LABS: Anion Gap 15 (12-20); Blood Urea Nitrogen 9 mg/dL (9-16); Calcium 9.7 mg/dL (8.4-10.2); Carbon Dioxide 29 mmol/L (22-29); Chloride 102 mmol/L (96-108); Creatinine Clr Calc Pharmacy 58.4; Estimated Glomerular Filt Rate > 60; Glucose Random 108 mg/dL (60-115); Sodium 142 mmol/L (135-145)
[2020-10-15 03:55] LABS: Troponin-I High Sensitivity 6.5 ng/L (<3.5-17.0)
[2020-10-15] MEDS: Meclizine HCl 25 MG TABLET 50 MG PO (04:07)
[2020-10-15 07:08] LABS: Troponin-I High Sensitivity 9.3 ng/L (<3.5-17.0)
--- NOTE | 2020-10-15 07:39 | PC.NURSE ---
Report from Libby BEY, plan is for admission at this time, pt reporting occipital h/a, unable to tolerate standing for ortho's, hospitalist in to bedside for admission eval. Covid swab obtained.
--- NOTE | 2020-10-15 07:57 | HE.PHANOTE ---
Pharmacy Consult ? Medication Reconciliation Pharmacy has completed the medication reconciliation and there were no significant medication issues requiring provider attention. Raisa Cuevas, PharmD, [facility]
[2020-10-15 08:10] LABS: COVID-19 Test Negative (Negative)
--- NOTE | 2020-10-15 08:26 | PC.NURSE ---
Call to floor for report, Nurse to call back
--- NOTE | 2020-10-15 08:27 | PC.NURSE ---
pt's son Alex phone number [phone]
--- NOTE | 2020-10-15 08:56 | PC.NURSE ---
attempt to give report, RN to call back
[2020-10-15] MEDS: 0.9 % Sodium Chloride Flush 3 ML SYRINGE IVFLUSH ×3 (09:32→20:30)
--- NOTE | 2020-10-15 09:50 | HP_ITS ---
DATE OF SERVICE: 10/15/2020 CHIEF COMPLAINT: Dizziness. HISTORY OF PRESENTING ILLNESS: This is a very pleasant 75-year-old female patient with past medical history significant for small cell lung cancer diagnosed 1 year ago, former smoker with history of hypertension and hyperlipidemia, presented to [facility] due to symptoms of dizziness that started late yesterday morning. As per patient, she gets sensation of spinning when she moves her head. She also complained of associated sinus pressure and frontal as well as occipital headache that is mild. When she walks she feels that she becomes dizzy and unsteady due to persistent vertigo. She had an episode of nausea last night, associated with chills. Denies any abdominal pain or diarrhea. Denies any fever or chills. The patient has history of vertigo for which she takes meclizine 1 tablet daily, and when she gets these episodes of dizziness, she takes it every 6 hours along with Tylenol, but the patient ran out of her p.r.n. medications yesterday and due to persistent symptoms, presented to [facility] last night. Workup in the ER is essentially unremarkable with normal CT head, normal electrolytes, normal CBC, troponin, and EKG. The patient was treated in the emergency room with 2 dosages of diazepam and meclizine with no significant improvement in symptoms since patient remains dizzy with any change in position. The patient is being admitted to [facility] for continued monitoring and treatment. PAST MEDICAL HISTORY: Significant for; 1. History of hypertension. 2. History of hyperlipidemia. 3. History of migraine headache. 4. History of small cell lung cancer, status post left upper lobectomy. PAST SURGICAL HISTORY: 1. The patient is status post appendectomy. 2. Status post cholecystectomy. 3. Status post lobectomy of lung on September 30, 2019. 4. Status post removal of cyst. FAMILY HISTORY: There is a family history of breast cancer in mother and sister. No family history of premature coronary artery disease. Father had throat cancer. SOCIAL HISTORY: The patient is a . She lives home by herself, ambulate without assistive device. She is a former smoker, quit 20 years ago. Denies alcohol abuse. MEDICATIONS: The patient takes albuterol 2 puffs inhaler every 4-6 hours, alprazolam 0.25 mg daily, atenolol 25 mg daily, Lasix 20 mg daily, levothyroxine 25 mcg daily, meclizine 12.5 mg by mouth daily, omeprazole 20 mg daily, Zofran 8 mg daily, and tramadol 50 mg daily as needed for pain. ALLERGIES: THE PATIENT IS ALLERGIC TO DEMEROL THAT CAUSES GI SYMPTOMS. PENICILLIN CAUSES A RASH. CODEINE CAUSES GI UPSET. MORPHINE ALSO CAUSED GI UPSET. REVIEW OF SYSTEMS: DOG WALKER: The patient complains of mild dull frontal headache and occipital headache and persistent dizziness. GI: She has no current nausea, vomiting, or abdominal pain. : No urinary symptoms of urgency and frequency. GENERAL: She denies any fevers, no weakness. SKIN: She denies any rashes. Rest of all other systems are reviewed and are negative. PHYSICAL EXAMINATION: GENERAL: Well-developed female, resting comfortably. Does not appear to be in acute distress. VITAL SIGNS: BP 196/55, pulse of 68, oxygenation 96% on room air, respiratory rate is 18. HEENT: Pupils are equal, round, and reactive to light and accommodation. There is no nystagmus noted. Anicteric sclerae. NECK: Supple. No JVD. LUNGS: Clear to auscultation bilaterally. No wheeze or rhonchi. HEART: Regular rate and rhythm. ABDOMEN: Soft, obese, nontender. Bowel sounds are audible. EXTREMITIES: Without clubbing, cyanosis, or edema. Left leg is shorter than right, that is chronic. NEUROLOGIC: Nonfocal. Speech is clear. No dysarthria. Finger-nose testing, normal. No cerebellar signs. Gait not assessed. LABORATORY DATA: Hemoglobin 13.3, hematocrit 39, platelet of 263. INR from early September 1.3. Sodium 142, potassium 4, creatinine of 0.76, blood sugar 108. Troponin within normal range. EKG showed sinus bradycardia with first-degree AV block and findings suggestive of prior anterior and inferior infarction. ASSESSMENT AND PLAN: This is a 75-year-old female patient, who presented to [facility] with acute onset of dizziness associated with nausea and headache. The patient's nausea has resolved. Her headache is better, but persists mostly in the occipital area. The patient gets dizzy with change in position. The patient does carry the diagnosis of benign positional vertigo and takes meclizine on a daily basis due to persistent symptoms of nausea with difficulty in ambulation. Therefore, she is being admitted for continued monitoring and treatment. 1. Dizziness. The patient will be admitted to Med/Surg floor. We will obtain PT consultation for Renato's maneuver. Currently it does not seem that the patient has cerebellar ischemia since has no further nausea or vomiting. No cerebellar sign. We will check orthostatic blood pressure. If the patient's symptoms persist we would consider neuro imaging studies to rule out central disease but at present her examination is benign. The patient will be continued on as needed meclizine. 2. Hypertension. The patient noticed to have significantly elevated blood pressure. We will resume her home medications and follow BP closely. 3. History of hypothyroidism. Continue Synthroid. 4. History of chronic obstructive pulmonary disease. No acute exacerbation at present time. We will resume home medication. 5. DVT prophylaxis, the patient will be placed on Lovenox. MD REHAN Martinez/WOLFGANG / [id number] CHRIS
[2020-10-15 12:22] LABS: Glucose Urine UA NEG (NEG); Leukocyte Esterase Urine 2+ (NEG); Nitrite Urine NEG (NEG); Specific Gravity - Urine <= 1.005 (1.005-1.025); UACC Culture Trigger YES; Urine Blood 1+ (NEG); Urine Ketones NEG (NEG); Urine Protein NEG (NEG-TRACE)
[2020-10-15 12:24] LABS: Appearance Urine CLEAR; Color Urine YELLOW
[2020-10-15 12:36] LABS: Bacteria Urine TRACE /LPF; RBC Urine 0-2 /HPF (0); Squamous Epithelial Cell Urine 1+ /LPF
[2020-10-15] MEDS: Butalb/Acetamin/Caff 50/325/40 TABLET 1 TAB PO (14:49)
[2020-10-15] MEDS: Meclizine HCl 25 MG TABLET PO (20:30)
[2020-10-16 03:28] VITALS: BP 141/65; PULSE 52; RESP 18; TEMP 36.4; O2SAT 95
[2020-10-16] MEDS: Meclizine HCl 25 MG TABLET PO (04:29)
[2020-10-16 07:29] VITALS: BP 194/81; PULSE 59; RESP 18; TEMP 36.2; O2SAT 97
[2020-10-16] MEDS: Furosemide 20 MG TABLET PO (08:32)
[2020-10-16] MEDS: atenoloL 25 MG TABLET 12.5 MG PO (08:32)
[2020-10-16] MEDS: 0.9 % Sodium Chloride Flush 3 ML SYRINGE IVFLUSH (08:32)
[2020-10-16] MEDS: Cholecalciferol (Vitamin D3) 25 MCG TABLET 50 MCG PO (08:34)
[2020-10-16] MEDS: Omeprazole 20 MG CAPSULE.DR PO (08:34)
[2020-10-16] MEDS: Levothyroxine Sodium 25 MCG TABLET PO (08:35)
[2020-10-16 09:01] VITALS: PULSE 68
[2020-10-16] MEDS: ALPRAZolam 0.25 MG TABLET PO (09:03)
--- NOTE | 2020-10-16 09:40 | MHC.CM.PN ---
OBS NOTICE 10/16/20, PT ADMITTED TO OBSERVATION FOR DIZZINESS, PT REMAINS DIZZY W/ELEVATED BP, CM MET W/PT WHO REPORTS SHE LIVES ALONE, ONLY DME IS A 4 WHEELED WALKER, PT HAS NO HOME SERVICES AND WOULD LIKE A VNA, PT REPORTS HAVING MEALS ON WHEELS IN PAST AND WOULD LIKE REFERRAL TO [facility], PT REPORTED SHE [place] [facility] [place] THURSDAY 10/19 AT 1PM. PT VERIFIED PHARMACY AND PCP. D/C PLAN: HOME VS HOME W/VNA, FAMILY FOR TRANSPORT ONCOLOGIST: ALLEY RAIN PULMONOLGIST: MIKAL KEYES PCP: DENISE BELL
[2020-10-16] MEDS: Meclizine HCl 12.5 MG TABLET PO (11:10)
[2020-10-16] MEDS: Acetaminophen 325 MG TABLET 650 MG PO (11:10)
[2020-10-16 11:55] VITALS: BP 147/71; PULSE 52; RESP 18; O2SAT 95
--- NOTE | 2020-10-16 15:15 | P.F2F_ITS ---
Service Date Service Date: 10/16/20 Encounter Date of encounter: 10/16/20 Encounter: Patient admitted for dizziness and high blood pressure Reasons for Services Reason for correction: neurological assessment and teach disease management MD Overseeing Care: Ankit Cain Homebound: Leaving the home is medically contraindicated at this time without the asist of a device and/or another person due th the listed conditions above and below. Homebound supporting statement: Dizziness and uncontrolled blood pressure needs continued monitoring of blood pressure and neurological status Certification: Based on the above findings, I certify that this patient is confined to the home and needs intermittent correction care, physical therapy and/or speech therapy, or continues to need occupational therapy. The patient is under my care, and I have initiated the establishment of the plan of care. The patient will be followed by a physician who will periodically review the plan of care.
--- NOTE | 2020-10-16 15:19 | PM.DS ---
DS: Providers Provider Date of Service: 10/16/20 Date of admission: 10/15/20 08:08 Date of discharge: 10/16/20 Primary care physician: Ankit Cain MD DS: Medications Discharge Medications Home Medications: Home Medications Medication Instructions Recorded Confirmed albuterol sulfate 2 puff INHALATION Q4-6H PRN 04/13/20 10/15/20 alprazolam 0.25 mg PO BID 04/13/20 10/15/20 atenolol 12.5 mg PO DAILY 04/13/20 10/15/20 furosemide 40 mg PO MOWEFR@0800 04/13/20 10/15/20 levothyroxine 25 mcg PO DAILY 04/13/20 10/15/20 meclizine 12.5 mg PO Q6H PRN 04/13/20 10/15/20 omeprazole 20 mg PO DAILY 04/13/20 10/15/20 atorvastatin 1 tab PO MOWEFR@2100 10/15/20 10/15/20 cholecalciferol (vitamin D3) 50 mcg PO DAILY 10/15/20 10/15/20 [Vitamin D3] furosemide 1 tab PO SUTUTHSA@0800 10/15/20 10/15/20 omega 1-sgq-rum-fish oil [Fish Oil] 1 cap PO DAILY 10/15/20 10/15/20 DS: Summary Hospital Course Hospital Course: CHIEF COMPLAINT: Dizziness. HISTORY OF PRESENTING ILLNESS: This is a very pleasant 75-year-old female patient with past medical history significant for small cell lung cancer diagnosed 1 year ago, former smoker with history of hypertension and hyperlipidemia, presented to [facility] due to symptoms of dizziness that started late yesterday morning. As per patient, she gets sensation of spinning when she moves her head. She also complained of associated sinus pressure and frontal as well as occipital headache that is mild. When she walks she feels that she becomes dizzy and unsteady due to persistent vertigo. She had an episode of nausea last night, associated with chills. Denies any abdominal pain or diarrhea. Denies any fever or chills. The patient has history of vertigo for which she takes meclizine 1 tablet daily, and when she gets these episodes of dizziness, she takes it every 6 hours along with Tylenol, but the patient ran out of her p.r.n. medications yesterday and due to persistent symptoms, presented to [facility] last night. Workup in the ER is essentially unremarkable with normal CT head, normal electrolytes, normal CBC, troponin, and EKG. The patient was treated in the emergency room with 2 dosages of diazepam and meclizine with no significant improvement in symptoms since patient remains dizzy with any change in position. The patient is being admitted to [facility] for continued monitoring and treatment. PAST MEDICAL HISTORY: Significant for; 1. History of hypertension. 2. History of hyperlipidemia. 3. History of migraine headache. 4. History of small cell lung cancer, status post left upper lobectomy. PAST SURGICAL HISTORY: 1. The patient is status post appendectomy. 2. Status post cholecystectomy. 3. Status post lobectomy of lung on September 30, 2019. 4. Status post removal of cyst. Hospital course 75-year-old female admitted due to dizziness associated with nausea and headache and noted to have elevated blood pressure patient treated with meclizine and antiemetics in emergency room And subsequently admitted to medical floor where she was seen by Physical therapy and treated with charles maneuver patient dizziness significantly improved, patient is ambulating with no dizziness, has limited activity due to underlying respiratory issues, her blood pressure has improved, she is tolerating diet with no nausea vomiting, although patient is very anxious about discharge, patient has been reassured that since she is doing fine within normal examination she is safe to be discharged home, patient requested VNA that will be arranged patient instructed to follow-up with PCP and outpatient physical therapy for vestibular rehab. Time Spent with Patient Time attestation: Total time spent providing and/or coordinating discharge services: Discharge coordination time: Greater than 30 minutes Quality: Stroke Does the patient have a stroke diagnosis?: No Physical Exam Vital Signs: Vital Signs: Last Vital Signs Temp 97.1 F 10/16/20 07:29 Pulse 52 10/16/20 11:55 Resp 18 10/16/20 11:55 BP 147/71 H 10/16/20 11:55 Pulse Ox 95 10/16/20 11:55 Body Mass Index 35.5 General no acute distress. eyes no nystagmus Neck supple no JVD. CVS regular rate rhythm, Respiratory lungs clear to auscultation, no respiratory distress, no wheeze, no rhonchi. Gastrointestinal abdomen soft, nontender, bowel sounds audible Extremities no edema. No pitting edema left ankle. Neuro nonfocal , speech clear. Skin no rash Discharge Plan Discharge Patient Disposition: Home Health Service Discharge Diagnosis: Dizziness Referrals: Ankit Cain MD [Primary Care Provider] - 3-5 Days (APPT PREVIOUSLY SCHEDULED FOR 10/19/20) Discharge Medications: Continued atorvastatin 20 mg tablet 1 tab PO MOWEFR@2100 RF: 0 furosemide 20 mg tablet 1 tab PO SUTUTHSA@0800 RF: 0 cholecalciferol (vitamin D3) [Vitamin D3] 50 mcg (2,000 unit) Capsule 50 mcg PO DAILY RF: 0 omega 1-hec-shi-fish oil [Fish Oil] 1,000 mg (120 mg-180 mg) Capsule 1 cap PO DAILY RF: 0 atenolol 25 mg tablet 12.5 mg PO DAILY RF: 0 meclizine 12.5 mg tablet 12.5 mg PO Q6H PRN (Reason: Dizziness) RF: 0 levothyroxine 25 mcg tablet 25 mcg PO DAILY RF: 0 alprazolam 0.25 mg tablet 0.25 mg PO BID RF: 0 omeprazole 20 mg capsule,delayed release(DR/EC) 20 mg PO DAILY RF: 0 furosemide 20 mg tablet 40 mg PO MOWEFR@0800 RF: 0 albuterol sulfate 90 mcg/actuation HFA aerosol inhaler 2 puff inhalation Q4-6H PRN (Reason: Wheezing) RF: 0 Discharge Orders: Discharge Order (Routine); Ordered 10/16/20 Ordered By: Da Ibrahim Diet: advance to usual diet Activity on Discharge: As tolerated Stand Alone Forms: Patient Portal Discharge page Care Plan Goals: Admitted with dizziness seen by Physical therapy and recommended to have outpatient follow-up for vestibular rehab Sunday. Continue meclizine as before Health Concerns: Dizziness, hypertension, lung CA recommend to continue outpatient follow-up with her providers Plan of Treatment: Outpatient follow-up with PCP and physical therapy Assessment: As above
== END 2020-10-16 15:00 | disposition home health service (06) ==
LOC: HO.ED 07:18 → HO.EDOVER 08:09 → HO.S3 08:22
PROVIDERS: Admitting Provider Hospitalist; Emergency Provider Emergency Medicine; PCP Internal Medicine; Visit Provider Hospitalist
DX: R42 Dizziness and giddiness (principal); R11.0 Nausea; R51.9 Headache, unspecified; J32.0 Chronic maxillary sinusitis; J32.8 Other chronic sinusitis; R03.0 Elevated blood-pressure reading, without diagnosis of hypertension; I10 Essential (primary) hypertension; E78.5 Hyperlipidemia, unspecified; R00.1 Bradycardia, unspecified; I44.0 Atrioventricular block, first degree; C34.12 Malignant neoplasm of upper lobe, left bronchus or lung; Z90.2 Acquired absence of lung [part of]; Z87.891 Personal history of nicotine dependence; Z20.822 Contact with and (suspected) exposure to COVID-19; Z88.5 Allergy status to narcotic agent; Z88.0 Allergy status to penicillin; Z88.8 Allergy status to other drugs, medicaments and biological substances; Z79.899 Other long term (current) drug therapy
CPT/HCPCS: 36415; 70450; 80048; 81001; 81003; 82947; 84484; 85025; 87086; 87147; 87635; 93005; 96372; 96374; 97162; 99218; 99285; J1650

== ENCOUNTER → 2020-10-22 08:59 | Outpatient (BNVA) | payer MEDICARE, SELFPAY | PROVIDERS: PCP Internal Medicine; Visit Provider Surgery | DX: C34.12 Malignant neoplasm of upper lobe, left bronchus or lung (principal); H81.10 Benign paroxysmal vertigo, unspecified ear; Z79.899 Other long term (current) drug therapy; Z90.2 Acquired absence of lung [part of]; Z87.891 Personal history of nicotine dependence | CPT/HCPCS: 99212 ==

== ENCOUNTER → 2020-11-03 10:19 | Outpatient (BNVA) | payer MEDICARE, SELFPAY | PROVIDERS: PCP Internal Medicine; Visit Provider Orthopaedic Surgery | DX: R60.0 Localized edema (principal) | CPT/HCPCS: 99202 ==

== ENCOUNTER 2020-11-04 09:02 | Outpatient (REF) | payer MEDICARE, SELFPAY ==
--- NOTE | ~2020-11-04 | CT_ITS ---
EXAMINATION: CT HEAD WITH CONTRAST CLINICAL INFORMATION: Malignant neoplasm of upper lobe lobe left bronchus COMPARISON: None TECHNIQUE: Contiguous axial imaging was performed from the skull base to vertex following the administration of 100 mL of Omnipaque [address] examination was performed using dose optimization techniques as appropriate, variously including the following: *Automated exposure control *Adjustment of mA and/or kV according to patient size (this includes techniques or standardized protocols for targeted exams where dose is matched to indication/reason for exam; i.e. extremities or head) *Use of iterative reconstruction technique DLP: 611 mGy-cm FINDINGS: There is no evidence of acute intracranial hemorrhage or territorial infarction. No abnormal mass effect or midline shift is seen. Tapia to white matter differentiation is well preserved. No extra-axial fluid collections are identified. Postcontrast there is no abnormal enhancing lesion or mass seen. The lateral ventricles are symmetrical but slightly enlarged. There is diffuse periventricular hypodensity in both cerebral hemispheres without mass effect. The osseous structures and soft tissues are normal. The mastoid air cells and visualized portions of the paranasal sinuses are well aerated. CT/CT head/brain w con IMPRESSION: No acute intracranial process seen.
[2020-11-04] MEDS: iohexoL 350 MG/ML 100 ML INFUS..BTL 85 ML IV (09:46)
== END 2020-11-04 09:03 | disposition home or self-care (01) ==
LOC: HO.CT 09:02
PROVIDERS: Visit Provider Surgery
DX: C34.12 Malignant neoplasm of upper lobe, left bronchus or lung (principal)
CPT/HCPCS: 70460; Q9967

== ENCOUNTER 2020-11-08 10:09 | Outpatient (REF) | payer MEDICARE, SELFPAY ==
[2020-11-08 10:49] LABS: MANUAL DIFF FLAG NO
[2020-11-08 10:57] LABS: Basophils Absolute Auto 0.1 X10*3/uL (0.0-0.2); Basophils Percent Auto 1.1 % (0-2); Eosinophils Absolute Auto 0.2 X10*3/uL (0.0-0.4); Eosinophils Percent Auto 2.7 % (0-4); Hematocrit 42.1 % (37-47); Hemoglobin 14.1 g/dl (12.0-16.0); Imm Gran Abs Auto 0.02 X10*3/uL (0.00-0.03); Imm Gran Pct Auto 0.2 % (0.0-0.4); Lymphocytes Absolute Auto 2.6 X10*3/uL (1.2-4.9); Lymphocytes Percent Auto 31.6 % (20-40); Mean Corpuscular HGB Conc 33.5 g/dl (31.0-35.0); Mean Corpuscular Hemoglobin 29.9 pg (27.0-33.0); Mean Corpuscular Volume 89.2 fL (80-98); Mean Platelet Volume 9.4 fL (9.4-12.3); Monocytes Absolute Auto 0.6 X10*3/uL (0.1-1.2); Monocytes Percent Auto 6.7 % (2-11); Neutrophils Absolute Auto 4.7 X10*3/uL (2.0-8.3); Neutrophils Percent Auto 57.7 % (45-73); Platelet Count 296 X10*3/uL (160-400); Red Blood Count 4.72 X10*6/uL (4.20-5.50); Red Cell Distribution Width 13.2 % (11.0-16.0); White Blood Count 8.2 X10*3/uL (4.8-10.8)
[2020-11-08 11:32] LABS: Alanine Aminotransferase 23 U/L (0-31); Albumin Level 4.7 g/dL (3.5-5.0); Alkaline Phosphatase 92 U/L (39-117); Anion Gap 15 (12-20); Aspartate Amino Transferase 24 U/L (5-31); Bilirubin Total 0.5 mg/dL (0.0-1.0); Blood Urea Nitrogen 8 mg/dL (9-16); C Reactive Protein 0.23 mg/dL (< or = 0.50); Calcium 9.9 mg/dL (8.4-10.2); Carbon Dioxide 27 mmol/L (22-29); Chloride 103 mmol/L (96-108); Estimated Glomerular Filt Rate > 60; Glucose Random 118 mg/dL (60-115); Potassium 3.8 mmol/L (3.3-5.1); Sodium 141 mmol/L (135-145); Total Protein 8.1 g/dL (6.5-8.0)
[2020-11-08 11:41] LABS: Free T4 (Free Thyroxine) 0.87 ng/dL (0.71-1.85); Thyroid Stimulating Hormone 1.11 uIU/mL (0.32-4.0); Vitamin D 25-OH Total 28.4 ng/mL (>30)
[2020-11-08 11:45] LABS: Vitamin B12 286 pg/mL (200-900)
== END 2020-11-08 10:10 | disposition home or self-care (01) ==
LOC: HO.LAB 10:09
PROVIDERS: PCP Internal Medicine; Visit Provider Internal Medicine
DX: I10 Essential (primary) hypertension (principal); R14.0 Abdominal distension (gaseous); E03.9 Hypothyroidism, unspecified; J44.9 Chronic obstructive pulmonary disease, unspecified; R53.83 Other fatigue
CPT/HCPCS: 36415; 80053; 82306; 82607; 84439; 84443; 85025; 86140

== ENCOUNTER → 2020-11-19 08:56 | Outpatient (BNVA) | payer MEDICARE, SELFPAY | PROVIDERS: PCP Internal Medicine; Visit Provider Surgery | DX: C34.12 Malignant neoplasm of upper lobe, left bronchus or lung (principal); R42 Dizziness and giddiness; Z79.899 Other long term (current) drug therapy; Z90.2 Acquired absence of lung [part of]; Z87.891 Personal history of nicotine dependence | CPT/HCPCS: 99212 ==

== ENCOUNTER 2020-12-09 10:00 | Outpatient (RCR) | payer MEDICARE, SELFPAY ==
--- NOTE | 2020-10-19 14:59 | MHC.PT.EP ---
[facility] [place] [facility] [place] [facility] [place] [facility] [address] Christo Trinidad [address] [phone] F: [phone] F: [phone] F: [phone] F: [phone] Physical Therapy Plan of Care Date of Evaluation: Date of Surgery: Diagnosis: BPPV Assessment: The patient was positive for horizontal canal BPPV. She had geotropic nystagmus in left canal that resolved with particle repositioning, and she had ageotropic nystagmus in the right roll test that may indicate cupulolithiasis in the right horizontal canal. She will likely need balance retraining once BPPV is resolved. She may have some otoconia in the posterior canals but today this was not assessed due to finding horizontal canal bppv. She is an excellent candidate for skilled PT. Frequency and Duration: The patient will be seen 2x/week x 4 weeks Short Term Goals: 1.Pt to be negative for nystagmus in all diagnostic positions for BPPV to facilitate improved functional movements. Electric Furnace Operator Goals: 1. For the patient to be negative for nystagmus or reports of vertigo in all diagnostic positions bilaterally to resolution of BPPV in 4 weeks. 2. For the patient to be able to functionally move in all planes and directions without provocation of dizziness to show return to PLOF. 3.For the patient to be educated on symptoms and indications to return to therapy when needed in 4 weeks. Treatment Plan: Modalities to reduce pain, spasms and effusion. Manual therapy to restore motion and function. Therapeutic exercise to improve strength and flexibility. Neuromuscular re-education for posture and balance. Therapeutic activities to return to functional activities of daily living. Electronically signed by: Ingrid Leon PT DPT Please sign and return to therapist. Thank you for your referral.
== END 2021-01-19 08:00 | disposition home or self-care (01) ==
LOC: HO.PT 10:00
PROVIDERS: PCP Internal Medicine; Visit Provider Internal Medicine
DX: H81.4 Vertigo of central origin (principal)
CPT/HCPCS: 95992; 97112; 97162; 97530

== ENCOUNTER → 2020-12-29 14:11 | Outpatient (BNVA) | payer MEDICARE, SELFPAY | PROVIDERS: PCP Internal Medicine; Visit Provider Internal Medicine Pulmonary Disease | DX: J44.9 Chronic obstructive pulmonary disease, unspecified (principal) | CPT/HCPCS: 99212 ==

== ENCOUNTER 2021-03-16 08:12 | Outpatient (REF) | payer MEDICARE, SELFPAY ==
--- NOTE | ~2021-03-16 | CT_ITS ---
EXAMINATION: CT CHEST WITHOUT CONTRAST CLINICAL INFORMATION: Left upper lobe lung cancer COMPARISON: Previous chest CT scans most recent September 2020 TECHNIQUE: Multidetector volumetric CT imaging of the chest was done. Axial MIP volume rendering provided. Sagittal and coronal reformatted images were obtained. This CT examination was performed using dose optimization techniques as appropriate, variously including the following: *Automated exposure control *Adjustment of mA and/or kV according to patient size (this includes techniques or standardized protocols for targeted exams where dose is matched to indication/reason for exam; i.e. extremities or head) *Use of iterative reconstruction technique DLP: 175 mGy-cm FINDINGS: LUNGS: There is volume loss to the left hemithorax. There are postsurgical changes following left upper lobe lobectomy. There is evidence of emphysema. There are increased peripheral interstitial markings and mild traction bronchiolectasis mild interstitial disease. There is a 4 mm right middle lobe nodule axial image 282 series 7 that is stable. There is thickening along the lateral right major fissure measuring 3 x 10 mm axial image 305 series 7 that is unchanged. MEDIASTINUM: The heart does not appear enlarged. There is mild coronary artery and aortic valve calcification. The thoracic aorta is normal in caliber. There are no enlarged hilar or mediastinal lymph nodes. There is no pericardial effusion. There is a right jugular port with tip projecting over the SVC. PLEURA: There is no pleural effusion. No pleural mass or thickening. AXILLA: No lymphadenopathy. UPPER ABDOMEN: There is diverticulosis of the colon. OSSEOUS STRUCTURES: There is scoliosis of the thoracic spine and degenerative changes. No fracture or bony lesion is seen. CT/CT chest wo con IMPRESSION: Stable postsurgical changes following left upper lobe lobectomy. Stable small right middle lobe nodule and pleural thickening along the right major fissure. Mild emphysema. Question mild interstitial lung disease.
== END 2021-03-16 08:13 | disposition home or self-care (01) ==
LOC: HO.CT 08:12
PROVIDERS: PCP Internal Medicine; Visit Provider Surgery
DX: C34.12 Malignant neoplasm of upper lobe, left bronchus or lung (principal)
CPT/HCPCS: 71250

== ENCOUNTER → 2021-03-25 08:37 | Outpatient (BNVA) | payer MEDICARE, SELFPAY | PROVIDERS: PCP Internal Medicine; Visit Provider Surgery | DX: C34.12 Malignant neoplasm of upper lobe, left bronchus or lung (principal); Z79.899 Other long term (current) drug therapy; Z90.2 Acquired absence of lung [part of]; Z87.891 Personal history of nicotine dependence | CPT/HCPCS: 99212 ==

== ENCOUNTER 2021-03-29 11:04 | Outpatient (REF) | payer MEDICARE, SELFPAY ==
[2021-03-29 14:29] LABS: Anion Gap 18 (12-20); Blood Urea Nitrogen 10 mg/dL (9-16); Calcium 9.7 mg/dL (8.4-10.2); Carbon Dioxide 25 mmol/L (22-29); Chloride 101 mmol/L (96-108); Estimated Glomerular Filt Rate > 60; Glucose Random 97 mg/dL (60-115); Sodium 140 mmol/L (135-145)
== END 2021-03-29 11:05 | disposition home or self-care (01) ==
LOC: HO.10HDL 11:04
PROVIDERS: Visit Provider Internal Medicine
DX: I10 Essential (primary) hypertension (principal); R60.0 Localized edema
CPT/HCPCS: 36415; 80048

== ENCOUNTER 2021-04-18 08:54 | Day surgery (SDC) | payer MEDICARE, SELFPAY ==
[2021-04-08 10:02] VITALS: BMI 35.5
--- NOTE | 2021-04-13 16:15 | MHC.SHP ---
Pre-Procedural Eval Section A Date of Service: 04/13/21 The patient is an INPATIENT: No Changes since office visit: No Cold of Flu in the past 2 weeks, No New Medical Problems, No Changes in Medication and No Patient answered all questions The History & Physical has been completed within 30 days and I have reviewed it.: Yes Section B Chief Complaint: cataract Allergies: Allergies Allergy/AdvReac Type Severity Reaction Status Date / Time meperidine [From DEMEROL] Allergy Mild GI SYMPTOMS Verified 04/08/21 09:58 Penicillins [PCN] Allergy Mild RASH Verified 04/08/21 09:58 codeine [CODEINE] AdvReac Mild GI UPSET Verified 04/08/21 09:58 morphine [MORPHINE] AdvReac Mild GI UPSET Verified 04/08/21 09:58 Plan Diagnosis/Plan: Unchanged I have reviewed the history and physical and performed a pertinent physical examination on my patient. No changes have occurred unless specified.
[2021-04-18 10:01] VITALS: BP 134/59; PULSE 55; RESP 20; TEMP 36.7; O2SAT 97
--- NOTE | 2021-04-18 10:05 | HP_ITS ---
DATE OF SERVICE: 04/18/2021 HISTORY OF PRESENT ILLNESS: Patient is a 76-year-old female seen today for preop evaluation prior to cataract surgery scheduled with Dr. Barton in 2 sessions 2 weeks apart, first in April 18 and then on May 02, 2021. REVIEW OF SYSTEMS: No fevers, chills, or sweats. No weight changes. No headaches or dizziness. No chest pains or palpitations. Occasional peripheral edema. Some dyspnea with exertion. No abdominal pain or heartburn. No dysuria. Some arthritis in the hands. Speech is normal. Sleep and appetite are normal. She does get seasonal allergies. No complaints of skin rashes. PAST MEDICAL HISTORY: Significant for lung cancer, gastroesophageal reflux disease, hypertension, hypothyroid, elevated cholesterol, COPD, history of tobacco use, low vitamin D, occasional vertigo, anxiety, history of gallbladder surgery and appendectomy, throat polyps, fracture of right patella, surgery in 2007. SOCIAL HISTORY: She is a . Lives alone. Has 3 children. FAMILY HISTORY: Mother at 87. Father at 47 from throat cancer. One sister had breast cancer at 57 and lupus, one sister at 70. ALLERGIES: SHE DOES LIST AN ALLERGY TO THE PENICILLIN. PHYSICAL EXAMINATION: GENERAL: She is awake, alert, in no distress. VITAL SIGNS: Temperature is 97.8, pulse 62, respirations 12, pressure 124/68, 98% oxygen saturation on room air. Weight 178, height 4 feet 11 inches. HEENT: Pupils equal, TMs clear. Pharynx clear. NECK: Supple. No lymph nodes, bruits or masses. HEART: Sounds S1 and S2. Regular rate. LUNGS: Clear, but distant. ABDOMEN: Soft, nontender. Positive bowel sounds. No HSM. EXTREMITIES: No clubbing, cyanosis. No edema. 1+ pulses. PRESENT MEDICATIONS: Prilosec 20 mg a day, hydrochlorothiazide 12.5 mg a day, atenolol 12.5 mg a day, meclizine 12.5 mg twice a day as needed for dizziness, alprazolam 0.25 mg p.o. daily as needed for anxiety, Lasix 20 mg a day, levothyroxine 0.025 a day. She is taking vitamin D over the counter. ASSESSMENT AND PLAN: She is medically stable for the proposed procedure. I will be available if there are any medical questions. MD CARLOS Leiva/WOLFGANG / [phone]
[2021-04-18] MEDS: Tetracaine HCl/PF 0.5% Oph Sol 4 ML DROPS 1 DROP EYE-RIGHT (10:15)
--- NOTE | 2021-04-18 10:16 | P.CONAN_ITS ---
HPI - Anesthesia Eval Consult details Narrative: 76 yo female patient for Right cataract extraction and IOL insertion [facility] Active Problems Active Problems: All Active Problems (Updated 04/08/21 @ 10:07 by Alisson Stapleton RN) Lung cancer (Chronic ~09/2019) Vertigo (Acute) 1st degree AV block (Acute ~09/2020) Sinus bradycardia on ECG (Acute ~09/2020) COPD (chronic obstructive pulmonary disease) (Acute) Small cell lung cancer, left upper lobe (Acute ~09/2019) Past Medical History Medical History 1st degree AV block (~09/2020) Anxiety Benign paroxysmal positional vertigo Cataract COPD (chronic obstructive pulmonary disease) Former smoker, stopped smoking in distant past GERD (gastroesophageal reflux disease) History of throat problem HTN (hypertension) Hyperlipemia Hypothyroidism Insomnia Migraine headache PONV (postoperative nausea and vomiting) Poor venous access Port-A-Cath in place Sinus bradycardia on ECG (~09/2020) Small cell lung cancer, left upper lobe (~09/2019) Family History Family History Mother Breast cancer Father Throat cancer Sister Breast cancer Lupus GI bleed Family history of problems with anesthesia: No Surgical History Surgical History History of appendectomy (~1982) History of bronchoscopy (~09/17/19) History of cholecystectomy (~1982) History of lobectomy of lung (~09/30/19) History of removal of cyst (~1988) History of Problems with Anesthesia: No Social History Social History Household Members: Children and None Household Members Other:: lives with her son Alcohol intake: never Patient Tobacco Use Status: Former Tobacco user Quit Date: 1995 Tobacco use type: Cigarette Years Smoked: 25 Second Hand Smoke Exposure: No Use of substances other than those prescribed or required for medical reasons: No Are you DNR?: No Advance Directives: No Advance Directives Information Provided: Yes Advance Directives on File: No service: No Current occupational status: retired 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, 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 [employer] Allergies Allergy/AdvReac Type Severity Reaction Status Date / Time meperidine [From DEMEROL] Allergy Mild GI SYMPTOMS Verified 04/18/21 10:06 Penicillins [PCN] Allergy Mild RASH Verified 04/18/21 10:06 codeine [CODEINE] AdvReac Mild GI UPSET Verified 04/18/21 10:06 morphine [MORPHINE] AdvReac Mild GI UPSET Verified 04/18/21 10:06 Active Medications: Current Medications Povidone Iodine (Povidone Iodine 5 % Ophth Soln 30 Ml Bottle) 1 appl EYE-RIGHT PREOP PRN PRN Reason: Pre-Op Surgical Implant Prophy Home Medications Medication Instructions Recorded Confirmed Last Taken Type albuterol sulfate 90 mcg/actuation 2 puff INHALATION Q4-6H PRN 04/13/20 04/08/21 Unknown History aerosol inhaler alprazolam 0.25 mg tablet 0.25 mg PO BID 04/13/20 04/08/21 04/18/21 07:30 History atenolol 25 mg tablet 12.5 mg PO DAILY 04/13/20 04/08/21 04/18/21 07:30 History levothyroxine 25 mcg tablet 25 mcg PO DAILY 04/13/20 04/08/21 04/18/21 07:30 History meclizine 12.5 mg tablet 12.5 mg PO Q6H PRN 04/13/20 04/08/21 Unknown History omeprazole 20 mg capsule,delayed 20 mg PO DAILY 04/13/20 04/08/21 04/18/21 07:30 History release atorvastatin 20 mg tablet 1 tab PO MOWEFR@2100 10/15/20 04/08/21 10/13/20 History cholecalciferol (vitamin D3) 50 50 mcg PO DAILY 10/15/20 04/08/21 10/14/20 History mcg (2,000 unit) capsule (Vitamin D3) furosemide 20 mg tablet 2 tab PO DAILY 10/15/20 04/08/21 10/14/20 History omega 3-cdc-gns-fish oil 1,000 mg 1 cap PO DAILY 10/15/20 04/08/21 10/14/20 History (120 mg-180 mg) capsule (Fish Oil) ondansetron HCl 4 mg tablet 4 mg PO DAILY 11/19/20 03/25/21 Unknown History Exam Exam Date and Time: April 18, 2021 1016 Height,Weight and Vital Signs: Height 4 ft 11 in Weight 79.832 kg Last Vital Signs Temp 98.1 F 04/18/21 10:01 Pulse 55 04/18/21 10:01 Resp 20 04/18/21 10:01 BP 134/59 L 04/18/21 10:01 Pulse Ox 97 04/18/21 10:01 Airway Mallampati Class: II TM Dist: >3cm Neck ROM: Full Denture: Upper and Lower Heart: RRR Lungs: CTAB Assessment and Plan Assessment Anesthesia Assessment: Anesthesia Plan Discussed and Chart Reviewed Final Anesthetic Review Family History of Problems with Anesthesia: No History of Problems with Anesthesia: No NPO: Yes ASA Class: III Final Preanesthetic Review: No Changes in Pt Med Stat, Meds/Allgs Chart Reviewed, Consent Obtained/Reviewed and Anes Risks/Benef Reviewed Patient Risk: Intermediate Procedure Risk: Low Anesthetic Plan Anesthetic Plan: MAC: Disposition: Standard PACU
[2021-04-18] MEDS: Tropicamide 1 % Ophth Sol 3 ML BTL 1 DROP EYE-RIGHT ×3 (10:17→10:23)
[2021-04-18] MEDS: Phenylephrine HCL 2.5% Oph SoL 2 ML BOTTLE 1 DROP EYE-RIGHT ×3 (10:19→10:25)
[2021-04-18] MEDS: Lactated Ringers 1,000 ML 50 ML IVCONT (11:07)
--- NOTE | 2021-04-18 11:11 | HO.PNOPHT ---
Ophthalmology Procedure Procedure Date of Service: 04/18/21 Ophthalmology Viscoelastic: Healsue Duet Dual Pack Pro Ophthalmology Lenses: TECAKILA [id number] (22) Procedure Notes: PREOPERATIVE DIAGNOSIS: Decreased visual acuity right eye secondary to cataract POSTOPERATIVE DIAGNOSIS: Same PROCEDURE: Right cataract extraction with intraocular lens insertion SURGEON: Ryan Barton M.D. ANESTHESIA: Topical/MAC ESTIMATED BLOOD LOSS: None COMPLICATIONS: None After obtaining informed consent, the patient was brought to the operating room suite and placed in the supine position. After adequate sedation per anesthesia, topical drops of Tetracaine were given to the right eye. The eye was then prepped and draped in the usual sterile fashion. The operating room microscope was then positioned over the operative eye and a lid speculum placed. A paracentesis was created. Viscoelastic was then instilled into the anterior chamber. A three plane incision was then created temporally, utilizing a 2.85 mm keratome. Capsulotomy forceps were then utilized to create a circular tear capsulotomy. Hydrodissection and hydrodelineation were carried out until adequate mobilization of the nucleus occurred. Phacoemulsification was then utilized to remove the dense central nucleus followed by removal of the cortical material utilizing the automated aspiration irrigation unit. Viscoelastic was instilled into the posterior capsular bag followed by placement of a posterior chamber intraocular lens without difficulty. The residual Viscoelastic was then removed utilizing the automated IA machine. The wound was checked and found to be watertight. The patient tolerated the procedure well and the lid speculum was removed. Intracameral injection of Vigamox 0.1 mL followed by a subtenon injection of Kenalog-40 0.2 mL were administered. The patient will be seen in the a.m.
[2021-04-18 11:38] VITALS: BP 159/65; PULSE 57; RESP 16; TEMP 36.2; O2SAT 94
== END 2021-04-18 11:40 ==
LOC: HO.SSS 08:54
PROVIDERS: PCP Internal Medicine; Visit Provider Ophthalmology
PROC: (CPT 66985; principal; 2021-04-18 10:50)
DX: H25.11 Age-related nuclear cataract, right eye (principal); H54.7 Unspecified visual loss; Z83.511 Family history of glaucoma; E03.9 Hypothyroidism, unspecified; I10 Essential (primary) hypertension; Z79.899 Other long term (current) drug therapy; Z85.118 Personal history of other malignant neoplasm of bronchus and lung; Z87.891 Personal history of nicotine dependence; Z88.0 Allergy status to penicillin; Z88.8 Allergy status to other drugs, medicaments and biological substances
CPT/HCPCS: 66984; J2250; J3010; J3300; V2632

== ENCOUNTER 2021-05-02 08:14 | Day surgery (SDC) | payer MEDICARE, SELFPAY ==
[2021-04-08 10:05] VITALS: BMI 35.5
--- NOTE | 2021-04-28 11:16 | MHC.SHP ---
Pre-Procedural Eval Section A Date of Service: 04/28/21 The patient is an INPATIENT: No Changes since office visit: No Cold of Flu in the past 2 weeks, No New Medical Problems, No Changes in Medication and No Patient answered all questions The History & Physical has been completed within 30 days and I have reviewed it.: Yes Section B Chief Complaint: cataract Allergies: Allergies Allergy/AdvReac Type Severity Reaction Status Date / Time meperidine [From DEMEROL] Allergy Mild GI SYMPTOMS Verified 04/18/21 10:06 Penicillins [PCN] Allergy Mild RASH Verified 04/18/21 10:06 codeine [CODEINE] AdvReac Mild GI UPSET Verified 04/18/21 10:06 morphine [MORPHINE] AdvReac Mild GI UPSET Verified 04/18/21 10:06 Plan Diagnosis/Plan: Unchanged I have reviewed the history and physical and performed a pertinent physical examination on my patient. No changes have occurred unless specified.
--- NOTE | 2021-04-29 10:42 | P.CONAN_ITS ---
Documented by User: Paz Santos NP 04/29/21 10:44 HPI - Anesthesia Eval Consult details Narrative: 76yo F for Left Cataract Extraction IOL Insertion PCP cleared Right eye 04/18/21 with MAC: Fent 50, Midaz 2 Port in situ for IV access PMFSH Active Problems Active Problems: All Active Problems (Updated 04/08/21 @ 10:07 by Alisson Stapleton, RN) Lung cancer (Chronic ~09/2019) Vertigo (Acute) 1st degree AV block (Acute ~09/2020) Sinus bradycardia on ECG (Acute ~09/2020) COPD (chronic obstructive pulmonary disease) (Acute) Small cell lung cancer, left upper lobe (Acute ~09/2019) Past Medical History Medical History 1st degree AV block (~09/2020) Anxiety Benign paroxysmal positional vertigo Cataract COPD (chronic obstructive pulmonary disease) Former smoker, stopped smoking in distant past GERD (gastroesophageal reflux disease) History of throat problem HTN (hypertension) Hyperlipemia Hypothyroidism Insomnia Migraine headache PONV (postoperative nausea and vomiting) Poor venous access Port-A-Cath in place Sinus bradycardia on ECG (~09/2020) Small cell lung cancer, left upper lobe (~09/2019) Family History Family History Mother Breast cancer Father Throat cancer Sister Breast cancer Lupus GI bleed Family history of problems with anesthesia: No Surgical History Surgical History History of appendectomy (~1982) History of bronchoscopy (~09/17/19) History of cholecystectomy (~1982) History of lobectomy of lung (~09/30/19) History of removal of cyst (~1988) History of Problems with Anesthesia: No Social History Social History Household Members: Children and None Household Members Other:: lives with her son Alcohol intake: never Patient Tobacco Use Status: Former Tobacco user Quit Date: 1995 Tobacco use type: Cigarette Years Smoked: 25 Second Hand Smoke Exposure: No Use of substances other than those prescribed or required for medical reasons: No Are you DNR?: No Advance Directives: No Advance Directives Information Provided: Yes Advance Directives on File: No service: No Current occupational status: retired 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, 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 [employer] Allergies Allergy/AdvReac Type Severity Reaction Status Date / Time meperidine [From DEMEROL] Allergy Mild GI SYMPTOMS Verified 04/18/21 10:06 Penicillins [PCN] Allergy Mild RASH Verified 04/18/21 10:06 codeine [CODEINE] AdvReac Mild GI UPSET Verified 04/18/21 10:06 morphine [MORPHINE] AdvReac Mild GI UPSET Verified 04/18/21 10:06 Home Medications Medication Instructions Recorded Confirmed Last Taken Type albuterol sulfate 90 mcg/actuation 2 puff INHALATION Q4-6H PRN 04/13/20 04/22/21 Unknown History aerosol inhaler alprazolam 0.25 mg tablet 0.25 mg PO BID 04/13/20 04/22/21 05/02/21 History atenolol 25 mg tablet 12.5 mg PO DAILY 04/13/20 04/22/21 05/02/21 History levothyroxine 25 mcg tablet 25 mcg PO DAILY 04/13/20 04/22/21 05/02/21 History meclizine 12.5 mg tablet 12.5 mg PO Q6H PRN 04/13/20 04/22/21 Unknown History omeprazole 20 mg capsule,delayed 20 mg PO DAILY 04/13/20 04/22/21 05/02/21 History release atorvastatin 20 mg tablet 1 tab PO MOWEFR@2100 10/15/20 04/22/21 10/13/20 History cholecalciferol (vitamin D3) 50 50 mcg PO DAILY 10/15/20 04/22/21 10/14/20 History mcg (2,000 unit) capsule (Vitamin D3) furosemide 20 mg tablet 2 tab PO DAILY 10/15/20 04/22/21 10/14/20 History omega 0-fec-avp-fish oil 1,000 mg 1 cap PO DAILY 10/15/20 04/22/21 10/14/20 History (120 mg-180 mg) capsule (Fish Oil) Exam Exam Date and Time: April 29, 2021 1042 Height,Weight and Vital Signs: Height 4 ft 11 in Weight 79.832 kg Assessment and Plan Assessment Anesthesia Assessment: Chart Reviewed Final Anesthetic Review Family History of Problems with Anesthesia: No History of Problems with Anesthesia: No Documented by User: Mikal Daugherty MD 05/02/21 09:45 [facility] Past Medical History Medical History 1st degree AV block (~09/2020) Anxiety Benign paroxysmal positional vertigo Cataract COPD (chronic obstructive pulmonary disease) Former smoker, stopped smoking in distant past GERD (gastroesophageal reflux disease) History of throat problem HTN (hypertension) Hyperlipemia Hypothyroidism Insomnia Migraine headache PONV (postoperative nausea and vomiting) Poor venous access Port-A-Cath in place Sinus bradycardia on ECG (~09/2020) Small cell lung cancer, left upper lobe (~09/2019) Family History Family History Mother Breast cancer Father Throat cancer Sister Breast cancer Lupus GI bleed Surgical History Surgical History History of appendectomy (~1982) History of bronchoscopy (~09/17/19) History of cholecystectomy (~1982) History of lobectomy of lung (~09/30/19) History of removal of cyst (~1988) Social History Social History Household Members: Children and None Household Members Other:: lives with her son Alcohol intake: never Patient Tobacco Use Status: Former Tobacco user Quit Date: 1995 Tobacco use type: Cigarette Years Smoked: 25 Second Hand Smoke Exposure: No Use of substances other than those prescribed or required for medical reasons: No Are you DNR?: No Advance Directives: No Advance Directives Information Provided: Yes Advance Directives on File: No service: No Current occupational status: retired 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, 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 [employer] Allergies Allergy/AdvReac Type Severity Reaction Status Date / Time meperidine [From DEMEROL] Allergy Mild GI SYMPTOMS Verified 04/18/21 10:06 Penicillins [PCN] Allergy Mild RASH Verified 04/18/21 10:06 codeine [CODEINE] AdvReac Mild GI UPSET Verified 04/18/21 10:06 morphine [MORPHINE] AdvReac Mild GI UPSET Verified 04/18/21 10:06 Home Medications Medication Instructions Recorded Confirmed Last Taken Type albuterol sulfate 90 mcg/actuation 2 puff INHALATION Q4-6H PRN 04/13/20 04/22/21 Unknown History aerosol inhaler alprazolam 0.25 mg tablet 0.25 mg PO BID 04/13/20 04/22/21 05/02/21 History atenolol 25 mg tablet 12.5 mg PO DAILY 04/13/20 04/22/21 05/02/21 History levothyroxine 25 mcg tablet 25 mcg PO DAILY 04/13/20 04/22/21 05/02/21 History meclizine 12.5 mg tablet 12.5 mg PO Q6H PRN 04/13/20 04/22/21 Unknown History omeprazole 20 mg capsule,delayed 20 mg PO DAILY 04/13/20 04/22/21 05/02/21 History release atorvastatin 20 mg tablet 1 tab PO MOWEFR@2100 10/15/20 04/22/21 10/13/20 History cholecalciferol (vitamin D3) 50 50 mcg PO DAILY 10/15/20 04/22/21 10/14/20 History mcg (2,000 unit) capsule (Vitamin D3) furosemide 20 mg tablet 2 tab PO DAILY 10/15/20 04/22/21 10/14/20 History omega 2-twg-mlj-fish oil 1,000 mg 1 cap PO DAILY 10/15/20 04/22/21 10/14/20 History (120 mg-180 mg) capsule (Fish Oil) Exam Airway Mallampati Class: II TM Dist: >3cm Neck ROM: Full Denture: Upper and Lower Loose/Missing/Broken Teeth: Yes Heart: RRR+S1s2 Lungs: CTA B/L Assessment and Plan Final Anesthetic Review NPO: Yes ASA Class: III Final Preanesthetic Review: No Changes in Pt Med Stat, Meds/Allgs Chart Reviewed, Consent Obtained/Reviewed and Anes Risks/Benef Reviewed Patient Risk: Intermediate Procedure Risk: Low Assessment/Block/Sedation in SS: Assess/Block/Sedation-SS Anesthetic Plan Anesthetic Plan: MAC: and Agree w/ Assess. and Plan Disposition: Standard PACU
[2021-05-02 09:19] VITALS: BP 171/55; PULSE 56; RESP 18; TEMP 36.3; O2SAT 95
[2021-05-02] MEDS: Tetracaine HCl/PF 0.5% Oph Sol 4 ML DROPS 1 DROP EYE-LEFT (09:31)
[2021-05-02] MEDS: Lactated Ringers 500 ML 50 ML IV (09:31)
[2021-05-02] MEDS: Tropicamide 1 % Ophth Sol 3 ML BTL 1 DROP EYE-LEFT ×3 (09:32→09:43)
[2021-05-02] MEDS: Phenylephrine HCL 2.5% Oph SoL 2 ML BOTTLE 1 DROP EYE-LEFT ×3 (09:34→09:45)
--- NOTE | 2021-05-02 10:51 | HO.PNOPHT ---
Ophthalmology Procedure Procedure Date of Service: 05/02/21 Ophthalmology Viscoelastic: Healon Duet Dual Pack Pro Ophthalmology Lenses: TECNIS [id number] (21.5) Procedure Notes: PREOPERATIVE DIAGNOSIS: Decreased visual acuity left eye secondary to cataract POSTOPERATIVE DIAGNOSIS: Same PROCEDURE: Left cataract extraction with intraocular lens insertion SURGEON: Ryan Barton M.D. ANESTHESIA: Topical/MAC ESTIMATED BLOOD LOSS: None COMPLICATIONS: None After obtaining informed consent, the patient was brought to the operation room suite and placed in the supine position. After adequate sedation per anesthesia, topical drops of Tetracaine were given to the left eye. The eye was then prepped and draped in the usual sterile fashion. The operating room microscope was then positioned over the operative eye and a lid speculum placed. A paracentesis was created. Viscoelastic was then instilled into the anterior chamber. A three plane incision was then created temporally, utilizing a 2.85 mm keratome. Capsulotomy forceps were then utilized to create a circular tear capsulotomy. Hydrodissection and hydrodelineation were carried out until adequate mobilization of the nucleus occurred. Phacoemulsification was then utilized to remove the dense central nucleus followed by removal of the cortical material utilizing the automated aspiration irrigation unit. Viscoat elastic was instilled into the posterior capsular bag followed by placement of a posterior chamber intraocular lens without difficulty. The residual Viscoat elastic was then removed utilizing the automated IA machine. The wound was check and found to be watertight. The patient tolerated the procedure well and the lid speculum was removed. Intracameral injection of Vigamox 0.1 mL followed by a subtenon injection of Kenalog-40 0.2 mL were administered. The patient will be seen in the a.m.
[2021-05-02 11:13] VITALS: BP 149/55; PULSE 53; RESP 16; TEMP 36.9; O2SAT 98
== END 2021-05-02 11:29 | disposition home or self-care (01) ==
PROVIDERS: PCP Internal Medicine; Visit Provider Ophthalmology
PROC: (CPT 66985; principal; 2021-05-02 11:30)
DX: H25.12 Age-related nuclear cataract, left eye (principal); H54.7 Unspecified visual loss; I44.0 Atrioventricular block, first degree; H81.10 Benign paroxysmal vertigo, unspecified ear; I10 Essential (primary) hypertension; J44.9 Chronic obstructive pulmonary disease, unspecified; Z85.118 Personal history of other malignant neoplasm of bronchus and lung; Z90.2 Acquired absence of lung [part of]; Z92.21 Personal history of antineoplastic chemotherapy; Z79.899 Other long term (current) drug therapy; Z88.0 Allergy status to penicillin; Z88.8 Allergy status to other drugs, medicaments and biological substances; Z87.891 Personal history of nicotine dependence
CPT/HCPCS: 66984; J2250; J3010; J3300; V2632

== ENCOUNTER 2021-06-01 08:23 | Emergency (ER) | payer MEDICARE, SELFPAY ==
--- NOTE | 2021-06-01 | ECG_ITS ---
Test Reason : irregular HR Blood Pressure : / mmHG Vent. Rate : 065 BPM Atrial Rate : 065 BPM P-R Int : 208 ms QRS Dur : 078 ms QT Int : 394 ms P-R-T Axes : 034 -09 007 degrees QTc Int : 409 ms Sinus rhythm with occasional Premature ventricular complexes Inferior infarct (cited on or before 01-JUN-2021) Anterior infarct (cited on or before 01-JUN-2021) Abnormal ECG When compared with ECG of 15-OCT-2020 02:08, Premature ventricular complexes are now Present Referred By: Vania Oglesby Electronically Signed By:CASSIE GAMBINO
--- NOTE | ~2021-06-01 | XR_ITS ---
EXAMINATION: XR CHEST CLINICAL INFORMATION: Generalized weakness. COMPARISON: CT chest 02/24/2021 TECHNIQUE: Frontal view of the chest was obtained. FINDINGS: There is slight loss of left lung volume likely from previous intervention or lobectomy. The right lung is expanded. There is bilateral increase interstitial markings. The heart size and progress clarities normal. There is a right central venous port in good position.. There is mild levoscoliosis. No other bony abnormality seen. XR/XR chest 1V IMPRESSION: Mild prominent bilateral interstitial markings similar to previous CT chest exam 03/16/2021. No acute pneumonic consolidation seen.
[2021-06-01 08:29] VITALS: BP 160/100; PULSE 76; O2SAT 96
[2021-06-01 08:51] VITALS: BP 127/54; PULSE 61; RESP 18; TEMP 36.8; O2SAT 99; BMI 35.5
[2021-06-01 09:40] LABS: Influenza A PCR NEGATIVE (Negative); Influenza B PCR NEGATIVE (Negative); Resp Syncy Virus RNA Qual PCR NEGATIVE (Negative); SARS COV2 PCR INHOUSE POSITIVE (Negative)
[2021-06-01 09:42] LABS: MANUAL DIFF FLAG NO
--- NOTE | 2021-06-01 09:43 | ED.GENADULT ---
HPI - General Adult General Chief complaint: General Medical Stated complaint: SOB SINCE BOOSTER 4 DAYS AGO, 100% RA PER EMS Time Seen by Provider: 06/01/21 09:10 Source: patient and EMS Mode of arrival: EMS Limitations: no limitations History of Present Illness HPI narrative: 76-year-old female came in for evaluation of generalized weakness. 76-year-old female just took her 3rd Moderna booster vaccination 5 days ago, 2 days later patient started to have generalized body ache, generalized weakness, shortness of breath intermittently which patient think it is her COPD. Patient also been having fever and chills, no lower extremities swelling or tenderness. Patient declined any coughing, no shortness of breath now. Related Data Home Medications Medication Instructions Recorded Confirmed albuterol sulfate 90 mcg/actuation 2 puff INHALATION Q4-6H PRN 04/13/20 04/22/21 aerosol inhaler alprazolam 0.25 mg tablet 0.25 mg PO BID 04/13/20 04/22/21 atenolol 25 mg tablet 12.5 mg PO DAILY 04/13/20 04/22/21 levothyroxine 25 mcg tablet 25 mcg PO DAILY 04/13/20 04/22/21 meclizine 12.5 mg tablet 12.5 mg PO Q6H PRN 04/13/20 04/22/21 omeprazole 20 mg capsule,delayed 20 mg PO DAILY 04/13/20 04/22/21 release atorvastatin 20 mg tablet 1 tab PO MOWEFR@2100 10/15/20 04/22/21 cholecalciferol (vitamin D3) 50 50 mcg PO DAILY 10/15/20 04/22/21 mcg (2,000 unit) capsule (Vitamin D3) furosemide 20 mg tablet 2 tab PO DAILY 10/15/20 04/22/21 omega 2-cyy-rum-fish oil 1,000 mg 1 cap PO DAILY 10/15/20 04/22/21 (120 mg-180 mg) capsule (Fish Oil) Previous Rx's Medication Instructions Recorded ipratropium 0.5 mg-albuterol 3 mg 3 ml INHALATION Q4-6H PRN 30 Days 12/29/20 (2.5 mg base)/3 mL nebulization #270 ml soln Allergies Allergy/AdvReac Type Severity Reaction Status Date / Time meperidine [From DEMEROL] Allergy Mild GI SYMPTOMS Verified 04/18/21 10:06 Penicillins [PCN] Allergy Mild RASH Verified 04/18/21 10:06 codeine [CODEINE] AdvReac Mild GI UPSET Verified 04/18/21 10:06 morphine [MORPHINE] AdvReac Mild GI UPSET Verified 04/18/21 10:06 Review of Systems Review of Systems: All other systems are reviewed and are negative Constitutional: Reports as per HPI and Reports no additional constitutional complaints Eyes: Reports as per HPI and Reports no additional eye complaints Reports system reviewed and no additional complaints, except as documented Cardiovascular: Reports as per HPI and Reports no additional cardiovascular complaints Respiratory: Reports as per HPI and Reports no additional respiratory complaints Gastrointestinal: Reports as per HPI and Reports no additional gastrointestinal complaints Genitourinary: Reports no additional female genitourinary complaints Musculoskeletal: Reports no additional musculoskeletal complaints Skin/Breast: Reports system reviewed and no additional complaints, except as docu Psychiatric: Reports no additional psychiatric complaints Endocrine: Reports no additional endocrine complaints Hematologic/Lymphatic: Reports no additional hematologic/lymphatic complaints Allergic/Immunologic: Reports no additional allergic/immunologic complaints Reports system reviewed and no additional complaints, except as documented and Reports Abnormal speech present [facility] Past Medical History Medical History 1st degree AV block (~09/2020) Anxiety Benign paroxysmal positional vertigo Cataract COPD (chronic obstructive pulmonary disease) Former smoker, stopped smoking in distant past GERD (gastroesophageal reflux disease) History of throat problem HTN (hypertension) Hyperlipemia Hypothyroidism Insomnia Migraine headache PONV (postoperative nausea and vomiting) Poor venous access Port-A-Cath in place Sinus bradycardia on ECG (~09/2020) Small cell lung cancer, left upper lobe (~09/2019) Surgical History History of appendectomy (~1982) History of bronchoscopy (~09/17/19) History of cholecystectomy (~1982) History of lobectomy of lung (~09/30/19) History of removal of cyst (~1988) Family History Family History Mother Breast cancer Father Throat cancer Sister Breast cancer Lupus GI bleed Social History Social History Household Members: Children and None Household Members Other:: lives with her son Alcohol intake: never Patient Tobacco Use Status: Former Tobacco user Quit Date: 1995 Tobacco use type: Cigarette Years Smoked: 25 Second Hand Smoke Exposure: No Advance Directives: No Advance Directives Information Provided: Yes service: No Current occupational status: retired 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 Blood pressure normal. Heart rate normal. Respiration rate normal. Temperature normal. Oxygen saturation normal. Appearance: Alert. Oriented X3. No acute distress. Head: Normal external exam. Normocephalic. Atraumatic. No [place] signs noted. No raccoon eyes noted Eyes: PERRLA. EOMI. Conjunctiva and sclera normal. Eyelids normal. ENT: TM's Normal. Pharynx normal. Uvula midline. Moist mucous membranes. No trismus noted. No drooling noted. No muffled voice noted. Neck: Normal inspection. Neck supple. FROM. No adenopathy. Thyroid Normal. No meningeal signs. No neck mass noted. CVS: Normal heart rate and rhythm. Heart sound normal. No murmurs noted. Pulses normal throughout. Respiratory: No respiratory distress. Painless inspiration. Breath sounds normal. No wheezes/rales/rhonchi noted. Chest nontender. No accessory muscle usage noted or decreased air movement noted. Abdomen: Soft and nontender. Bowel sounds normal in all 4 quadrants. No distention noted. No organomegaly noted. No visible injury noted. Back: No CVA tenderness. Full range of motion noted. Skin: Skin warm and dry. Normal skin color. Normal skin turgor. No rashes/lesions/lacerations noted. Extremities: No lower extremity edema. Extremities exhibit normal range of motion. Extremities nontender. Neuro: Oriented X 3. Cranial nerve exam: II-XII are grossly intact No motor deficit. No sensory deficit. Reflexes normal. Course Course Course Narrative: Assessment and plan. 76-year-old female with history of COPD came in with symptoms of generalized weakness after taking her booster dose of Moderna vaccination, patient tested positive for COVID, patient has very stable vital signs, stable labs, patient felt improved after IV hydration the emergency department, patient is requesting to stay in the hospital for 1 day observation unfortunately, hospitals in general is overwhelmed because the COVID pandemic, and patient do not meet criteria for admission with stable chest x-ray and oxygenation. Medical Decision Making Lab Data Lab results reviewed: Yes I reviewed the patient's lab results. Result diagrams: 06/01/21 09:30 06/01/21 09:30 Labs: Lab Results 06/01/21 06/01/21 06/01/21 Range/Units 08:58 09:30 09:30 WBC 7.2 (4.8-10.8) X10*3/uL RBC 4.41 (4.20-5.50) X10*6/uL Hgb 13.3 (12.0-16.0) g/dl Hct 39.5 (37.0-47.0) % MCV 89.6 (80.0-98.0) fL MCH 30.2 (27.0-33.0) pg MCHC 33.7 (31.0-35.0) g/dl RDW 13.2 (11.0-16.0) % Plt Count 241 (160-400) X10*3/uL MPV 9.0 L (9.4-12.3) fL Immature Gran % (Auto) 0.3 (0.0-0.4) % Neut % (Auto) 58.5 (45-73) % Lymph % (Auto) 28.2 (20-40) % Moffat % (Auto) 10.5 (2-11) % Eos % (Auto) 2.1 (0-4) % Baso % (Auto) 0.4 (0-2) % Lymph # (Auto) 2.0 (1.2-4.9) X10*3/uL Moffat # (Auto) 0.8 (0.1-1.2) X10*3/uL Eos # (Auto) 0.2 (0.0-0.4) X10*3/uL Baso # (Auto) 0.0 (0.0-0.2) X10*3/uL Abs Immat Gran (auto) 0.02 (0.00-0.03) X10*3/uL Absolute Neuts (auto) 4.2 (2.0-8.3) x10*3/uL Absolute Nucleated RBC 0.000 (0.0-0.012) X10*3/uL Nucleated RBC % (auto) 0.0 (0.0-0.2) /100WBC Sodium 136 (135-145) mmol/L Potassium 4.0 (3.3-5.1) mmol/L Chloride 98 (96-108) mmol/L Carbon Dioxide 26 (22-29) mmol/L Anion Gap 16 (12-20) BUN 10 (9-16) mg/dL Creatinine 0.74 (0.5-1.4) mg/dL Estim Creat Clear Calc 59.0 Estimated GFR > 60 Random Glucose 105 (60-115) mg/dL Calcium 9.6 (8.4-10.2) mg/dL Total Bilirubin 0.8 (0.0-1.0) mg/dL Direct Bilirubin 0.2 (0.0-0.5) mg/dL AST 28 (5-31) U/L ALT 24 (0-31) U/L Alkaline Phosphatase 78 (39-117) U/L Troponin I High Sens (<3.5-17.0) ng/L Total Protein 7.9 (6.5-8.0) g/dL Albumin 4.2 (3.5-5.0) g/dL Lipase 39 (8-78) U/L Influenza Type A (PCR) NEGATIVE (Negative) Influenza Type B (PCR) NEGATIVE (Negative) RSV RNA Qual (PCR) NEGATIVE (Negative) SARS-CoV-2 RNA (RT-PCR) POSITIVE A (Negative) 06/01/21 Range/Units 09:30 WBC (4.8-10.8) X10*3/uL RBC (4.20-5.50) X10*6/uL Hgb (12.0-16.0) g/dl Hct (37.0-47.0) % MCV (80.0-98.0) fL MCH (27.0-33.0) pg MCHC (31.0-35.0) g/dl RDW (11.0-16.0) % Plt Count (160-400) X10*3/uL MPV (9.4-12.3) fL Immature Gran % (Auto) (0.0-0.4) % Neut % (Auto) (45-73) % Lymph % (Auto) (20-40) % Moffat % (Auto) (2-11) % Eos % (Auto) (0-4) % Baso % (Auto) (0-2) % Lymph # (Auto) (1.2-4.9) X10*3/uL Moffat # (Auto) (0.1-1.2) X10*3/uL Eos # (Auto) (0.0-0.4) X10*3/uL Baso # (Auto) (0.0-0.2) X10*3/uL Abs Immat Gran (auto) (0.00-0.03) X10*3/uL Absolute Neuts (auto) (2.0-8.3) x10*3/uL Absolute Nucleated RBC (0.0-0.012) X10*3/uL Nucleated RBC % (auto) (0.0-0.2) /100WBC Sodium (135-145) mmol/L Potassium (3.3-5.1) mmol/L Chloride (96-108) mmol/L Carbon Dioxide (22-29) mmol/L Anion Gap (12-20) BUN (9-16) mg/dL Creatinine (0.5-1.4) mg/dL Estim Creat Clear Calc Estimated GFR Random Glucose (60-115) mg/dL Calcium (8.4-10.2) mg/dL Total Bilirubin (0.0-1.0) mg/dL Direct Bilirubin (0.0-0.5) mg/dL AST (5-31) U/L ALT (0-31) U/L Alkaline Phosphatase (39-117) U/L Troponin I High Sens 4.0 (<3.5-17.0) ng/L Total Protein (6.5-8.0) g/dL Albumin (3.5-5.0) g/dL Lipase (8-78) U/L Influenza Type A (PCR) (Negative) Influenza Type B (PCR) (Negative) RSV RNA Qual (PCR) (Negative) SARS-CoV-2 RNA (RT-PCR) (Negative) Imaging Data Chest x-ray: Attestation: I personally reviewed and interpreted this imaging study as follows: Radiologist's impression: Mild prominent bilateral interstitial markings similar to previous CT chest exam 03/16/2021. ECG Data Attestation: I personally reviewed and interpreted this ECG as follows: Interpretation: Normal sinus rhythm at 65 beats per minutes, with occasional PVC. First-degree AV block, otherwise no ST-T-con changes. Discharge Plan Discharge Clinical Impression: COVID-19 virus infection Patient Disposition: Home, Self-Care Instructions: COVID-19 (Coronavirus Disease 2019) (ED) Additional Instructions: Quarantine yourself at home, keep social distancing between you and others, where face mask at all times, return if decrease oxygenation or difficulty breathing. Prescriptions: No Action atorvastatin 20 mg tablet 1 tab PO MOWEFR@2100 RF: 0 furosemide 20 mg tablet 2 tab PO DAILY RF: 0 cholecalciferol (vitamin D3) [Vitamin D3] 50 mcg (2,000 unit) Capsule 50 mcg PO DAILY RF: 0 omega 2-ezf-xas-fish oil [Fish Oil] 1,000 mg (120 mg-180 mg) Capsule 1 cap PO DAILY RF: 0 atenolol 25 mg tablet 12.5 mg PO DAILY RF: 0 meclizine 12.5 mg tablet 12.5 mg PO Q6H PRN (Reason: Dizziness) RF: 0 levothyroxine 25 mcg tablet 25 mcg PO DAILY RF: 0 alprazolam 0.25 mg tablet 0.25 mg PO BID RF: 0 omeprazole 20 mg capsule,delayed release(DR/EC) 20 mg PO DAILY RF: 0 albuterol sulfate 90 mcg/actuation HFA aerosol inhaler 2 puff inhalation Q4-6H PRN (Reason: Wheezing) RF: 0 ipratropium-albuterol 0.5 mg-3 mg(2.5 mg base)/3 mL solution for nebulization 3 ml inhalation Q4-6H PRN (Reason: wheezing) 30 Days Qty: 270 RF: 6 Referrals: Physician,Unknown J [Primary Care Provider] - 2 weeks
[2021-06-01 09:45] LABS: Basophils Percent Auto 0.4 % (0-2); Eosinophils Absolute Auto 0.2 X10*3/uL (0.0-0.4); Eosinophils Percent Auto 2.1 % (0-4); Hematocrit 39.5 % (37.0-47.0); Hemoglobin 13.3 g/dl (12.0-16.0); Imm Gran Abs Auto 0.02 X10*3/uL (0.00-0.03); Imm Gran Pct Auto 0.3 % (0.0-0.4); Lymphocytes Percent Auto 28.2 % (20-40); Mean Corpuscular HGB Conc 33.7 g/dl (31.0-35.0); Mean Corpuscular Hemoglobin 30.2 pg (27.0-33.0); Mean Corpuscular Volume 89.6 fL (80.0-98.0); Monocytes Absolute Auto 0.8 X10*3/uL (0.1-1.2); Monocytes Percent Auto 10.5 % (2-11); Neutrophils Absolute Auto 4.2 x10*3/uL (2.0-8.3); Neutrophils Percent Auto 58.5 % (45-73); Platelet Count 241 X10*3/uL (160-400); Red Blood Count 4.41 X10*6/uL (4.20-5.50); Red Cell Distribution Width 13.2 % (11.0-16.0); White Blood Count 7.2 X10*3/uL (4.8-10.8)
[2021-06-01 10:11] LABS: Alanine Aminotransferase 24 U/L (0-31); Albumin Level 4.2 g/dL (3.5-5.0); Alkaline Phosphatase 78 U/L (39-117); Anion Gap 16 (12-20); Aspartate Amino Transferase 28 U/L (5-31); Bilirubin Direct 0.2 mg/dL (0.0-0.5); Bilirubin Total 0.8 mg/dL (0.0-1.0); Blood Urea Nitrogen 10 mg/dL (9-16); Calcium 9.6 mg/dL (8.4-10.2); Carbon Dioxide 26 mmol/L (22-29); Chloride 98 mmol/L (96-108); Estimated Glomerular Filt Rate > 60; Glucose Random 105 mg/dL (60-115); Lipase 39 U/L (8-78); Sodium 136 mmol/L (135-145); Total Protein 7.9 g/dL (6.5-8.0)
[2021-06-01] MEDS: 0.9 % Sodium Chloride 1,000 ML 999 ML IV (10:25)
[2021-06-01 11:31] VITALS: BP 128/56; PULSE 61; RESP 15; TEMP 36.6; O2SAT 98
== END 2021-06-01 12:17 | disposition home or self-care (01) ==
PROVIDERS: Emergency Provider Emergency Medicine
DX: U07.1 COVID-19 (principal); I10 Essential (primary) hypertension; Z87.891 Personal history of nicotine dependence
CPT/HCPCS: 0241U; 36415; 71045; 80048; 80076; 83690; 84484; 85025; 93005; 96360; 99284

== ENCOUNTER 2021-06-15 11:52 | Outpatient (REF) | payer MEDICARE, SELFPAY ==
[2021-06-15 13:57] LABS: MANUAL DIFF FLAG NO
[2021-06-15 14:04] LABS: Basophils Absolute Auto 0.1 X10*3/uL (0.0-0.2); Eosinophils Absolute Auto 0.3 X10*3/uL (0.0-0.4); Eosinophils Percent Auto 2.5 % (0-4); Hematocrit 41.7 % (37.0-47.0); Hemoglobin 13.5 g/dl (12.0-16.0); Imm Gran Abs Auto 0.04 X10*3/uL (0.00-0.03); Imm Gran Pct Auto 0.4 % (0.0-0.4); Lymphocytes Absolute Auto 2.5 X10*3/uL (1.2-4.9); Lymphocytes Percent Auto 25.4 % (20-40); Mean Corpuscular HGB Conc 32.4 g/dl (31.0-35.0); Mean Corpuscular Hemoglobin 29.9 pg (27.0-33.0); Mean Corpuscular Volume 92.3 fL (80.0-98.0); Mean Platelet Volume 9.5 fL (9.4-12.3); Monocytes Absolute Auto 0.8 X10*3/uL (0.1-1.2); Monocytes Percent Auto 7.8 % (2-11); Neutrophils Absolute Auto 6.3 x10*3/uL (2.0-8.3); Neutrophils Percent Auto 62.9 % (45-73); Platelet Count 339 X10*3/uL (160-400); Red Blood Count 4.52 X10*6/uL (4.20-5.50); Red Cell Distribution Width 13.5 % (11.0-16.0)
[2021-06-15 14:35] LABS: Appearance Urine CLOUDY; Color Urine YELLOW; Glucose Urine UA NEG (NEG); Leukocyte Esterase Urine 3+ (NEG); Nitrite Urine NEG (NEG); PH 5.5 (5.0-8.0); Specific Gravity - Urine 1.015 (1.005-1.025); UACC Culture Trigger YES; Urine Blood TRACE (NEG); Urine Ketones NEG (NEG); Urine Protein NEG (NEG-TRACE)
[2021-06-15 14:45] LABS: Alanine Aminotransferase 22 U/L (0-31); Albumin Level 4.4 g/dL (3.5-5.0); Alkaline Phosphatase 94 U/L (39-117); Anion Gap 15 (12-20); Aspartate Amino Transferase 29 U/L (5-31); Bilirubin Total 0.2 mg/dL (0.0-1.0); Blood Urea Nitrogen 8 mg/dL (9-16); Calcium 10.2 mg/dL (8.4-10.2); Carbon Dioxide 32 mmol/L (22-29); Chloride 101 mmol/L (96-108); Estimated Glomerular Filt Rate > 60; Glucose Random 97 mg/dL (60-115); Sodium 144 mmol/L (135-145); Total Protein 8.5 g/dL (6.5-8.0)
[2021-06-15 14:51] LABS: Bacteria Urine 2+ /LPF; Squamous Epithelial Cell Urine 1+ /LPF
[2021-06-15 14:54] LABS: Free T4 (Free Thyroxine) 0.89 ng/dL (0.71-1.85); Thyroid Stimulating Hormone 1.14 uIU/mL (0.32-4.0); Vitamin D 25-OH Total 30.2 ng/mL (>30)
== END 2021-06-15 11:53 | disposition home or self-care (01) ==
LOC: HO.10HDL 11:52
PROVIDERS: Visit Provider Internal Medicine
DX: I10 Essential (primary) hypertension (principal); E03.9 Hypothyroidism, unspecified; R30.0 Dysuria; E55.9 Vitamin D deficiency, unspecified; Z86.16 Personal history of COVID-19
CPT/HCPCS: 36415; 80053; 81001; 81003; 82306; 84439; 84443; 85025; 87086

== ENCOUNTER → 2021-07-26 10:05 | Outpatient (BNVA) | payer MEDICARE, SELFPAY | PROVIDERS: PCP Internal Medicine; Visit Provider Internal Medicine Pulmonary Disease | DX: J44.9 Chronic obstructive pulmonary disease, unspecified (principal); R06.00 Dyspnea, unspecified; Z85.118 Personal history of other malignant neoplasm of bronchus and lung; Z79.899 Other long term (current) drug therapy; Z92.21 Personal history of antineoplastic chemotherapy; Z87.891 Personal history of nicotine dependence | CPT/HCPCS: 99212 ==

== ENCOUNTER 2021-08-29 08:59 | Outpatient (REF) | payer MEDICARE, SELFPAY ==
[2021-08-29 11:01] LABS: Magnesium 2.3 mg/dL (1.6-2.6)
[2021-08-29 11:02] LABS: Anion Gap 19 (12-20); Blood Urea Nitrogen 9 mg/dL (9-16); Calcium 9.8 mg/dL (8.4-10.2); Carbon Dioxide 21 mmol/L (22-29); Chloride 104 mmol/L (96-108); Estimated Glomerular Filt Rate > 60; Glucose Random 108 mg/dL (60-115); Potassium 4.5 mmol/L (3.3-5.1); Sodium 139 mmol/L (135-145)
[2021-08-29 11:19] LABS: Free T4 (Free Thyroxine) 0.89 ng/dL (0.71-1.85)
[2021-08-29 11:22] LABS: Thyroid Stimulating Hormone 1.19 uIU/mL (0.32-4.0)
== END 2021-08-29 09:00 | disposition home or self-care (01) ==
LOC: HO.10HDL 08:59
PROVIDERS: Visit Provider Internal Medicine
DX: I10 Essential (primary) hypertension (principal); E03.9 Hypothyroidism, unspecified; R25.2 Cramp and spasm
CPT/HCPCS: 36415; 80048; 83735; 84439; 84443

== ENCOUNTER 2021-09-08 08:42 | Outpatient (REF) | payer MEDICARE, SELFPAY ==
--- NOTE | ~2021-09-08 | CT_ITS ---
EXAMINATION: CT CHEST WITHOUT CONTRAST CLINICAL INFORMATION: Malignant neoplasm of the bronchus. COMPARISON: 03/16/2021 TECHNIQUE: Multidetector volumetric CT imaging of the chest was done. Axial MIP volume rendering provided. Sagittal and coronal reformatted images were obtained. This CT examination was performed using dose optimization techniques as appropriate, variously including the following: *Automated exposure control *Adjustment of mA and/or kV according to patient size (this includes techniques or standardized protocols for targeted exams where dose is matched to indication/reason for exam; i.e. extremities or head) *Use of iterative reconstruction technique DLP: 237 mGy-cm FINDINGS: The thoracic inlet is felt to be comparable to previous. The partially imaged upper abdominal structures comparable to previous. No suspicious finding. Centrally there is some mildly prominent nodes but these are not changing from previous exam. The hilar regions are quite comparable to previous. Not felt to be increasing. Imaging in the lung sylvester. Right Lung: Stable pleural-parenchymal change laterally in the major fissure. Minimal 3 mm nodularity on image 31 unchanged. Some chronic basilar markings are once again noted. Left Lung: Apical scarring and coarse honeycomb change posterior in the upper lung zone appears unchanged. No suspicious increase. There is some minimal ground-glass nodularity which is new on image 28 anterior and there is also a small focus posterior. These areas measure 3 to 4 mm. Attention to follow up. Chronic scarring at the left base. Review of the bone windows demonstrates degenerative changes. No suspicion for a bony lesion. CT/CT chest wo con IMPRESSION: Findings as described above are stable with exception of 2 small areas of ground-glass nodularity in the left lower lobe which are likely inflammatory in etiology. Attention to follow up. Fleischner guidelines were followed.
== END 2021-09-08 08:43 | disposition home or self-care (01) ==
LOC: HO.CT 08:42
PROVIDERS: Visit Provider Surgery
DX: C34.12 Malignant neoplasm of upper lobe, left bronchus or lung (principal)
CPT/HCPCS: 71250

== ENCOUNTER → 2021-09-23 09:44 | Outpatient (BNVA) | payer MEDICARE, SELFPAY | PROVIDERS: PCP Internal Medicine; Visit Provider Surgery | DX: C34.12 Malignant neoplasm of upper lobe, left bronchus or lung (principal); Z85.118 Personal history of other malignant neoplasm of bronchus and lung | CPT/HCPCS: 99212 ==

== ENCOUNTER → 2021-11-29 10:34 | Outpatient (BNVA) | payer MEDICARE, SELFPAY | PROVIDERS: PCP Internal Medicine; Visit Provider Internal Medicine Pulmonary Disease | DX: J44.9 Chronic obstructive pulmonary disease, unspecified (principal); Z85.118 Personal history of other malignant neoplasm of bronchus and lung; Z92.21 Personal history of antineoplastic chemotherapy; Z79.899 Other long term (current) drug therapy | CPT/HCPCS: 99212 ==

== ENCOUNTER 2022-03-13 08:36 | Outpatient (REF) | payer MEDICARE, SELFPAY ==
--- NOTE | ~2022-03-13 | CT_ITS ---
EXAMINATION: CT CHEST WITHOUT CONTRAST CLINICAL INFORMATION: Lung cancer left upper lobe COMPARISON: Previous chest CT most recent August 2021 TECHNIQUE: Multidetector volumetric CT imaging of the chest was done. Axial MIP volume rendering provided. Sagittal and coronal reformatted images were obtained. This CT examination was performed using dose optimization techniques as appropriate, variously including the following: *Automated exposure control *Adjustment of mA and/or kV according to patient size (this includes techniques or standardized protocols for targeted exams where dose is matched to indication/reason for exam; i.e. 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 There is evidence of emphysema. There are increased peripheral reticular markings and peripheral attenuation seen in the lungs questionable for mild interstitial lung disease. There is a 2 mm calcified left lower lobe nodule axial image 256 series 7. There is a 3 mm calcified right lower lobe nodule axial image 240 or series 7. There is a nodular density or atelectasis seen in the peripheral or subpleural right lower lobe adjacent to the major fissure axial image 308 series 7. Pulmonary nodules are stable. Previously identified groundglass attenuation areas in the left lower lobe on August 2021 exam are not definitely appreciated. There appears to be more diffuse peripheral or subpleural attenuation in the lungs questionable for interstitial disease. No endobronchial or endotracheal lesion. MEDIASTINUM: Right jugular port with tip projecting over the SVC. Atherosclerotic disease. Normal caliber thoracic aorta. Normal heart size. No pericardial effusion. No hilar or mediastinal lymphadenopathy. CORONARY ARTERY CALCIFICATION: Mild to moderate PLEURA: There is no pleural effusion. No pleural mass or thickening. AXILLA: No lymphadenopathy. UPPER ABDOMEN: Diverticulosis of the colon. Fatty liver. OSSEOUS STRUCTURES: Severe degenerative changes of the spine and scoliosis. CT/CT chest wo IV con IMPRESSION: Stable postsurgical changes following left upper lobe lobectomy. Stable pulmonary nodules. Emphysema and question mild peripheral interstitial lung disease. Fleischner guidelines were followed.
== END 2022-03-13 08:37 | disposition home or self-care (01) ==
LOC: HO.CT 08:36
PROVIDERS: PCP Internal Medicine; Visit Provider Surgery
DX: C34.12 Malignant neoplasm of upper lobe, left bronchus or lung (principal); R30.0 Dysuria; R35.0 Frequency of micturition
CPT/HCPCS: 36415; 71250; 80053; 81001; 82607; 83735; 87086

== ENCOUNTER 2022-03-13 11:13 | Outpatient (REF) | payer MEDICARE, SELFPAY ==
[2022-03-13 13:48] LABS: Appearance Urine Clear; Color Urine Yellow; Glucose Urine UA Negative (Negative); Leukocyte Esterase Urine Large (3+) (Negative); Nitrite Urine Negative (Negative); PH 5.5 (5.0-9.0); UMIC TRIGGER UACC YES; Urine Blood Negative (Negative); Urine Ketones Negative (Negative); Urine Protein Negative (Neg-Trace)
[2022-03-13 13:50] LABS: Alanine Aminotransferase 22 U/L (0-31); Albumin Level 4.8 g/dL (3.5-5.0); Alkaline Phosphatase 97 U/L (39-117); Anion Gap 18 (12-20); Aspartate Amino Transferase 27 U/L (5-31); Bilirubin Total 0.4 mg/dL (0.0-1.0); Blood Urea Nitrogen 11 mg/dL (9-16); Calcium 10.2 mg/dL (8.4-10.2); Carbon Dioxide 27 mmol/L (22-29); Chloride 99 mmol/L (96-108); Estimated Glomerular Filt Rate > 60; Glucose Random 101 mg/dL (60-115); Magnesium 1.9 mg/dL (1.6-2.6); Potassium 4.4 mmol/L (3.3-5.1); Sodium 140 mmol/L (135-145); Total Protein 8.7 g/dL (6.5-8.0)
[2022-03-13 13:56] LABS: Bacteria Urine None Seen (None Seen); Hyaline Casts Urine 0-2 /LPF (0-2); RBC Urine 0-2 /HPF (0-2); Squamous Epithelial Cell Urine 0-2 /HPF (0-2); UACC Culture Trigger YES; WBC Urine 21-50 /HPF (0-5)
[2022-03-13 14:41] LABS: Vitamin B12 270 pg/mL (200-900)
== END 2022-03-13 11:14 | disposition home or self-care (01) ==
LOC: HO.10HDL 11:13
PROVIDERS: Visit Provider Internal Medicine
DX: Z13.89 Encounter for screening for other disorder (principal)
CPT/HCPCS: 36415; 80053; 81001; 82607; 83735; 87086

== ENCOUNTER → 2022-03-30 09:47 | Outpatient (BNVA) | payer MEDICARE, SELFPAY | PROVIDERS: PCP Internal Medicine; Visit Provider Internal Medicine Pulmonary Disease | DX: J44.9 Chronic obstructive pulmonary disease, unspecified (principal) | CPT/HCPCS: 99212 ==

== ENCOUNTER → 2022-04-07 09:17 | Outpatient (BNVA) | payer MEDICARE, SELFPAY | PROVIDERS: PCP Internal Medicine; Visit Provider Surgery | DX: C34.90 Malignant neoplasm of unspecified part of unspecified bronchus or lung (principal) | CPT/HCPCS: 99212 ==

== ENCOUNTER 2022-05-24 09:16 | Outpatient (REF) | payer MEDICARE, SELFPAY ==
[2022-05-24 10:24] LABS: Appearance Urine Clear; Color Urine Yellow; Glucose Urine UA Negative (Negative); Leukocyte Esterase Urine Moderate (2+) (Negative); Nitrite Urine Negative (Negative); PH 5.5 (5.0-9.0); Specific Gravity - Urine 1.015 (1.005-1.025); UMIC TRIGGER UACC YES; Urine Blood Negative (Negative); Urine Ketones Negative (Negative); Urine Protein Negative (Neg-Trace)
[2022-05-24 10:30] LABS: Bacteria Urine None Seen (None Seen); Hyaline Casts Urine 0-2 /LPF (0-2); RBC Urine 0-2 /HPF (0-2); Squamous Epithelial Cell Urine 0-2 /HPF (0-2); UACC Culture Trigger YES
[2022-05-24 15:05] LABS: Influenza A PCR NEGATIVE (Negative); Influenza B PCR NEGATIVE (Negative); Resp Syncy Virus RNA Qual PCR NEGATIVE (Negative); SARS COV2 PCR INHOUSE NEGATIVE (Negative)
== END 2022-05-24 09:17 | disposition home or self-care (01) ==
LOC: HO.10HDL 09:16
PROVIDERS: Visit Provider Internal Medicine
DX: Z20.822 Contact with and (suspected) exposure to COVID-19 (principal); R05.9 Cough, unspecified; R30.0 Dysuria
CPT/HCPCS: 0241U; 81001; 87086

== ENCOUNTER 2022-06-22 08:52 | Outpatient (REF) | payer MEDICARE, SELFPAY ==
--- NOTE | ~2022-06-22 | XR_ITS ---
EXAMINATION: XR SINUSES CLINICAL INFORMATION: SiNUS HTN COMPARISON: X-ray sinuses March 2019. TECHNIQUE: 3 views of the sinuses were obtained. FINDINGS: Paranasal sinuses appear clear without air-fluid levels. No fractures are identified. No radiodense foreign bodies. XR/XR sinus min 3V IMPRESSION: Unremarkable examination.
== END 2022-06-22 08:53 | disposition home or self-care (01) ==
LOC: HO.XRAY 08:52
PROVIDERS: PCP Internal Medicine; Visit Provider Internal Medicine
DX: R51.9 Headache, unspecified (principal)
CPT/HCPCS: 70220

== ENCOUNTER → 2022-08-15 10:31 | Outpatient (BNVA) | payer MEDICARE, SELFPAY | PROVIDERS: PCP Internal Medicine; Visit Provider Internal Medicine Pulmonary Disease | DX: J44.9 Chronic obstructive pulmonary disease, unspecified (principal); C34.12 Malignant neoplasm of upper lobe, left bronchus or lung | CPT/HCPCS: 99212 ==

== ENCOUNTER 2022-11-28 10:41 | Outpatient (AMB) | payer MEDICARE, SELFPAY ==
--- NOTE | 2022-11-28 10:42 | A.OFFVIS_ITS ---
Intake Vital Signs 11/28/22 10:43 Height 5 ft Weight 178 lb 9.191 oz BMI 34.9 BP 122/64 Pulse 74 Pulse Oximetry (%) 97 Intake Visit Reasons: COPD Intake Note: pt says her insurance still did not cover her nebulizer medication. she says breathing is not good with how bad the air quality. 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 Patient was unable to afford Anoro, Brovana, or Stiolto.? She denies recent COPD exacerbation.? Patient continues with pulmonary rehab and states that she has significantly improved dyspnea tolerance.? She has been using duo nebs two times a day with reasonable control of her underlying symptoms, though she does get dyspneic walking longer distances.?? [facility] Medical History 1st degree AV block (~09/2020) Anxiety Benign paroxysmal positional vertigo Cataract COPD (chronic obstructive pulmonary disease) Former smoker, stopped smoking in distant past GERD (gastroesophageal reflux disease) History of throat problem HTN (hypertension) Hyperlipemia Hypothyroidism Insomnia Migraine headache PONV (postoperative nausea and vomiting) Poor venous access Port-A-Cath in place Sinus bradycardia on ECG (~09/2020) Small cell lung cancer, left upper lobe (~09/2019) Surgical History History of appendectomy (~1982) History of bronchoscopy (~09/17/19) History of cholecystectomy (~1982) History of lobectomy of lung (~09/30/19) History of removal of cyst (~1988) Family History Mother Breast cancer Father Throat cancer Sister Breast cancer Lupus GI bleed Social History Household Members: Children and None Household Members Other:: lives with her son Alcohol intake: never Patient Tobacco Use Status: Former Tobacco user Quit Date: 1995 Tobacco use type: Cigarette Years Smoked: 25 Second Hand Smoke Exposure: No service: No Current occupational status: retired 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, 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 [employer] Review of Systems Const Denies daytime sleepiness, Denies excessive sweating, Denies fatigue, Denies fever(s), Denies lethargy, Denies malaise, Denies night sweats, Denies snoring and Denies weight loss Eyes Denies blurry vision and Denies itchy eyes ENT Denies nasal congestion, Denies post nasal drip, Denies sinus pain, Denies sinus pressure and Denies other ( Thrush) Card Denies chest pain, Denies pedal edema, Denies dyspnea, Denies orthopnea and Denies paroxysmal nocturnal dyspnea Resp Denies cough, Denies hemoptysis, Denies excessive phlegm production, Denies dyspnea, Denies snoring and Denies wheezing GI Denies abdominal pain and Denies heartburn Musc Denies myalgias, Denies arthralgias and Denies joint swelling Skin/Breast Denies rash Neuro Denies memory loss and Denies seizure-like activity Psych Denies abnormal sleep pattern, Denies anxiety and Denies memory loss Endo Denies excessive sweating, Denies fatigue and Denies heat intolerance Ken/Lymph Denies easy bruising Aller/Immun Denies itchy eyes, Denies seasonal rhinorrhea and Denies wheezing Physical Exam Vital Signs: Last Vital Signs Pulse 74 11/28/22 10:43 BP 122/64 11/28/22 10:43 Pulse Ox 97 11/28/22 10:43 BMI result Body Mass Index 34.9 Const General: no acute distress and alert Nutritional Appearance: obese Orientation/consciousness: Other orientation findings ( oriented) HEENT Head: Yes atraumatic Eyes General: appearance normal, both eyes and all related structures Sclerae: sclerae normal EOM: EOMs intact bilaterally Neck Neck: Yes supple Lymphatic: no lymphadenopathy noted Resp Effort & Inspection: normal respiratory effort and no use of accessory muscles Auscultation: clear to auscultation bilaterally Cardio Rate: regular rate Rhythm: regular rhythm Heart sounds: no gallops, no murmurs and no rubs Skin General skin exam: other ( warm) Extrem General: No clubbing, No cyanosis and No edema Assessment & Plan Assessment & Plan (1) COPD (chronic obstructive pulmonary disease): Code(s): J44.9 - Chronic obstructive pulmonary disease, unspecified Plan: Unable to afford Anoro, Stiolto, or Brovana. Continue duo nebs, increased to 3 times a day. Will request PA for Yupelri. (2) Dyspnea on exertion: Code(s): R06.00 - Dyspnea, unspecified Plan: Combination of underlying pulmonary, obesity, and deconditioning. Patient continues to work with pulmonary rehab. Coding Level of Care Code Est Pt Level 4 (02867) Diagnoses COPD (chronic obstructive pulmonary disease) J44.9 Dyspnea on exertion R06.00
[2022-11-28 10:43] VITALS: BP 122/64; PULSE 74; O2SAT 97; BMI 34.9
== END 2022-11-28 11:01 | disposition home or self-care (01) ==
PROVIDERS: PCP Internal Medicine; Visit Provider Internal Medicine Pulmonary Disease
DX: J44.9 Chronic obstructive pulmonary disease, unspecified (principal); R06.00 Dyspnea, unspecified
CPT/HCPCS: 99214

== ENCOUNTER → 2022-11-28 10:41 | Outpatient (BNVA) | payer MEDICARE, SELFPAY | PROVIDERS: PCP Internal Medicine; Visit Provider Internal Medicine Pulmonary Disease | DX: J44.9 Chronic obstructive pulmonary disease, unspecified (principal); R06.00 Dyspnea, unspecified | CPT/HCPCS: 99212 ==

== ENCOUNTER 2023-02-06 21:06 | Emergency (ER) | payer MEDICARE, SELFPAY ==
--- NOTE | ~2023-02-06 | XR_ITS ---
EXAMINATION: XR KNEE, LEFT CLINICAL INFORMATION: Fall. heard a pop COMPARISON: Left knee October 08, 2020 TECHNIQUE: Four views of the left knee. FINDINGS: Mild tricompartment degenerative joint disease. No fracture. No dislocation. No focal bone lesion. No chondrocalcinosis. No joint effusion. Enthesophyte at the insertion of the quadriceps tendon at the superior patella. Moderate-sized enthesophyte at the inferior patellar tendon. XR/XR knee LT 4V IMPRESSION: 1. No acute abnormality. 2. Mild tricompartment degenerative joint disease.
[2023-02-06 21:13] VITALS: BP 159/60; PULSE 54; RESP 14; TEMP 37; O2SAT 99; BMI 35.2
--- OUTSIDE RECORDS SUMMARY | 2023-02-06 21:46 | XMS_ITS | Continuity of Care Document ---
Author Name Unknown Organization [facility] ter Address [address] [place] [address]- Care Team Providers Care Sr. Social Media & Mobile Manager Name Role Phone Roney JONES, Anthony Bass Primary Care Physician Encounter [facility] Date(s): 06/09/19 - 06/16/[address] [address]- [facility] Attending Physician: John Yanez MD Allergies, Adverse Reactions, Alerts Substance Reaction Severity Status codeine abd pain Active morphine Active penicillins Active Demerol HCl Active Wheat Active Other Food Allergy mushrooms Active Results Microbiology Reports TEST:Urine Culture STATUS:Auth (Verified) BODY SITE: SOURCE:CLEAN COLLECTED DATE/TIME:06/09/19 1:45 PM Urine Culture SPECIMEN DESCRIPTION : CLEAN CATCH (URINE) SPECIAL REQUESTS : NONE CULTURE : >100,000 COL/ML GROUP B BETA HEMOLYTIC STREPTOCOCCI ISOLATED. SUSCEPTIBILITY TESTING NOT ROUTINELY PERFORMED ON THIS ISOLATE. REPORT STATUS : FINAL 06/10/2019
--- OUTSIDE RECORDS SUMMARY | 2023-02-06 21:46 | XMS_ITS | Patient Health Record ---
Author Name Unknown Organization [facility] Address [address] [place] [address] Care Team Providers Care Offender Employment Specialist Name Role Phone Ankit Cain Primary Care Provider Unavailabl e ALLERGIES Allergen (clinical drug ingredient) Drug/Non Drug Allergy documented on EMR Reaction Allergy Type Onset Date Status mushrooms (uncoded) Unknown Allergy Active Penicillin rash Drug Allergy Active REASON FOR REFERRAL No Information MEDICATIONS Medication SIG (Take, Route, Frequency, Duration) Notes Start Date End Date Status LORazepam Active Atenolol 25 MG 1 tablet Orally Once a day 1/2 tablet daily Active SOCIAL HISTORY Sex Assigned At : Social History Observation Description Sex Assigned At Unknown PLAN OF TREATMENT No Information Insurance Providers Payer Name Payer Address Payer Phone Subscriber Number Group Number Insured Name Patient Relationship to Insured Coverage Start Date Coverage End Date Medicare of [place] [address] [place]IKA TORREZ [phone] [id number] Ashlyn Stone Self - patient is the insured [employer] Blue [employer] [address] [place] [phone] [id number] Ashlyn Stone Self - patient is the insured MEDICAL (GENERAL) HISTORY Medical History History ICD Code fatigue vertigo GERD rhinitis hypertension COPD lung cancer port on right side Surgical History Surgery Date(Month/Year) lung surgery left lobe removed (chemo) cholecystectomy 1982 appendectomy polyps removed in throat cataract surgery right knee surgery Hospitalization History Reason Date(Month/Year) right knee surgery appendectomy cholecystectomy [id number] lung surgery X 3days
--- NOTE | 2023-02-06 22:33 | ED_ITS ---
HPI - Extremity Injury (Lower) General Chief Complaint: Extremity Injury, Lower Stated Complaint: Pain in left knee Time Seen by Provider: 02/06/23 21:57 Source: patient Mode of arrival: ambulatory History of Present Illness HPI Narrative: 77-year-old female who twisted her left knee on Sunday is had subsequent knee pain with some mild swelling but denies any fever or chills and denies having fallen onto her knee. She did attempts to report this to her employer who declined submission of a report. Related Data Home Medications Medication Instructions Recorded Confirmed albuterol sulfate 90 mcg/actuation 2 puff inhalation Q4-6H PRN 04/13/20 08/08/22 aerosol inhaler Wheezing alprazolam 0.25 mg tablet 0.25 mg PO BID 04/13/20 08/08/22 atenolol 25 mg tablet 12.5 mg PO DAILY 04/13/20 08/08/22 levothyroxine 25 mcg tablet 25 mcg PO DAILY 04/13/20 08/08/22 meclizine 12.5 mg tablet 12.5 mg PO Q6H PRN Dizziness 04/13/20 08/08/22 omeprazole 20 mg capsule,delayed 20 mg PO DAILY 04/13/20 08/08/22 release atorvastatin 20 mg tablet 1 tab PO MOWEFR@2100 10/15/20 08/08/22 cholecalciferol (vitamin D3) 50 50 mcg PO DAILY 10/15/20 08/08/22 mcg (2,000 unit) capsule (Vitamin D3) furosemide 20 mg tablet 2 tab PO DAILY 10/15/20 08/08/22 omega 8-jfx-rxq-fish oil 1,000 mg 1 cap PO DAILY 10/15/20 08/08/22 (120 mg-180 mg) capsule (Fish Oil) Previous Rx's Medication Instructions Recorded revefenacin 175 mcg/3 mL solution 175 mcg (3 mL) inhalation DAILY 11/30/22 for nebulization ([place]) #90 mL ipratropium 0.5 mg-albuterol 3 mg 3 ml inhalation Q4-6H PRN wheezing 12/11/22 (2.5 mg base)/3 mL nebulization 30 days #270 mL soln Allergies Allergy/AdvReac Type Severity Reaction Status Date / Time meperidine [From DEMEROL] Allergy Mild GI SYMPTOMS Verified 11/28/22 10:48 Penicillins [PCN] Allergy Mild RASH Verified 11/28/22 10:48 codeine [CODEINE] AdvReac Mild GI UPSET Verified 11/28/22 10:48 morphine [MORPHINE] AdvReac Mild GI UPSET Verified 11/28/22 10:48 Review of Systems Review of Systems: Pertinent positives and negatives as stated in HPI [facility] Past Medical History Source: nursing notes reviewed Medical History Cataract Insomnia Poor venous access Port-A-Cath in place PONV (postoperative nausea and vomiting) GERD (gastroesophageal reflux disease) 1st degree AV block (~09/2020) Sinus bradycardia on ECG (~09/2020) Hypothyroidism Benign paroxysmal positional vertigo Former smoker, stopped smoking in distant past Small cell lung cancer, left upper lobe (~09/2019) COPD (chronic obstructive pulmonary disease) History of throat problem Migraine headache Anxiety Hyperlipemia HTN (hypertension) Surgical History History of lobectomy of lung (~09/30/19) History of bronchoscopy (~09/17/19) History of removal of cyst (~1988) History of cholecystectomy (~1982) History of appendectomy (~1982) Family History Family History Mother Breast cancer Father Throat cancer Sister Breast cancer Lupus GI bleed Social History Social History Household Members: Children and None Household Members Other:: lives with her son Alcohol intake: never Patient Tobacco Use Status: Former Tobacco user Quit Date: 1995 Tobacco use type: Cigarette Years Smoked: 25 Second Hand Smoke Exposure: No Advance Directives: Yes Advance Directives Information Provided: No Advance Directives on File: No service: No Current occupational status: retired 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 GENERAL: Well developed, well nourished, in no acute distress. HEAD: Normocephalic/atraumatic EYES: PERRLA, EOMI EARS: Ext canals without abnormality NOSE: Nares patent bilateral OROPHARYNX: no oral lesions noted, posterior pharynx clear NECK: Supple, no adenopathy LUNGS: Normal breath sounds. No adventitious sounds or accessory muscle use. SpO2<99> CARDIOVASCULAR: Regular rate and rhythm without noted murmurs ABDOMEN: Soft, non-tender, non-distended with bowel sounds. MUSCULOSKELETAL: No tenderness, deformities, or effusions noted on gross inspection. EXTREMITIES: No cyanosis, clubbing or edema. LEFT KNEE: No obvious deformity, no erythema or induration. SKIN: Inspection of the skin reveals no rashes NEUROLOGIC: Alert and oriented x 4. Strength and sensation to light touch were grossly intact x 4. Medical Decision Making Medical Decision Making MDM Narrative: 77-year-old female with history and clinical presentation of acute on chronic left knee pain, x-ray demonstrates osteoarthritis but otherwise no fracture or dislocation. There is no concern for possible cellulitis and unable to appreciate significant effusion. Wil wrap was put in place and patient was offered ibuprofen as she had recently taken Tylenol. She encouraged to follow- up with primary care doctor for referral to PT. Differential Diagnosis Differential Diagnoses: The differential diagnosis associated with the presentation includes Please see the discussion above Admission/Observation Consideration of admission/observation: Escalation of care including admission/observation considered Please see the discussion above Radiology Impression Discussion of test interpretation with radiology: I have reviewed the radiologist's reading. Radiologist Impression: Please see the discussion above Discharge Plan Discharge Clinical Impression: Left knee pain Patient Disposition: Home, Self-Care Instructions: How to Use an Elastic Bandage (ED), Knee Pain (ED), Ice Pack Application (ED) Additional Instructions: 1. Tylenol 1000 mg, orally, every 6 hours as needed for pain control. Do not exceed 4000 mg within 24 hours. 2. Ibuprofen 400 mg, orally with milk or food, every 6 hours as needed for pain control. Take this with Tylenol for improved symptom relief. 3. Follow-up with your primary care doctor and discuss a referral to physical therapy. Return to the ER for any worsening symptoms. Prescriptions: No Action Yupelri 175 mcg/3 mL solution for nebulization 175 mcg inhalation DAILY Qty: 90 6RF ipratropium-albuterol 0.5 mg-3 mg(2.5 mg base)/3 mL solution for nebulization 3 ml inhalation Q4-6H PRN (Reason: wheezing) 30 Days Qty: 270 6RF atorvastatin 20 mg tablet 1 tab PO MOWEFR@2100 furosemide 20 mg tablet 2 tab PO DAILY cholecalciferol (vitamin D3) [Vitamin D3] 50 mcg (2,000 unit) Capsule 50 mcg PO DAILY omega 2-qjr-sbb-fish oil [Fish Oil] 1,000 mg (120 mg-180 mg) Capsule 1 cap PO DAILY atenolol 25 mg tablet 12.5 mg PO DAILY Rx Instructions: takes 12.5mg daily meclizine 12.5 mg tablet 12.5 mg PO Q6H PRN (Reason: Dizziness) levothyroxine 25 mcg tablet 25 mcg PO DAILY alprazolam 0.25 mg tablet 0.25 mg PO BID omeprazole 20 mg capsule,delayed release(DR/EC) 20 mg PO DAILY albuterol sulfate 90 mcg/actuation HFA aerosol inhaler 2 puff inhalation Q4-6H PRN (Reason: Wheezing) Referrals: Ankit Cain MD [Primary Care Provider] -
[2023-02-06] MEDS: Ibuprofen 400 MG TABLET PO (23:04)
== END 2023-02-06 23:10 | disposition home or self-care (01) ==
PROVIDERS: Emergency Provider Student in an Organized Health Care Education/Training Program; PCP Internal Medicine
DX: M25.562 Pain in left knee (principal); I10 Essential (primary) hypertension; E78.5 Hyperlipidemia, unspecified; Z79.899 Other long term (current) drug therapy; Z87.891 Personal history of nicotine dependence
CPT/HCPCS: 73564; 99282; 99283

== ENCOUNTER 2023-03-08 07:51 | Outpatient (AMB) | payer MEDICARE, SELFPAY ==
--- NOTE | 2023-03-08 07:56 | A.OFFVIS_ITS ---
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 She was last seen in [address] Singh who found that she had more vascular problems or edema. Patient reports that she is having significant left knee pain for about 1 year. She did reaggravated her knee several months ago. She twisted her knee and had acute onset of pain. Since that time her symptoms have gotten worse in spite of continued non operative treatments. She has tried Tylenol and anti-inflammatory medicines which gave her minimal relief. She has had injections in the past which gave her no relief. She has been going to physical therapy which aggravated her pain. She states that her left knee will give out several times per day. Allergies meperidine [From DEMEROL] Allergy (Mild, Verified 11/28/22 10:48) GI SYMPTOMS Penicillins [PCN] Allergy (Mild, Verified 11/28/22 10:48) RASH codeine [CODEINE] Adverse Reaction (Mild, Verified 11/28/22 10:48) GI UPSET morphine [MORPHINE] Adverse Reaction (Mild, Verified 11/28/22 10:48) GI UPSET Medication List - Last Reconciled 03/08/23 by Feliz Gil MD albuterol sulfate 90 mcg/actuation 2 puffs inhalation Q4-6H PRN alprazolam 0.25 mg PO BID atenolol 12.5 mg PO DAILY atorvastatin 1 tab PO MOWEFR@2100 cholecalciferol (vitamin D3) (Vitamin D3) 50 mcg PO DAILY furosemide 2 tabs PO DAILY ipratropium-albuterol 0.5 mg-3 mg(2.5 mg base)/3 mL 3 mL inhalation Q4-6H PRN 30 days levothyroxine 25 mcg PO DAILY meclizine 12.5 mg PO Q6H PRN meclizine 12.5 mg PO TID PRN omega 3-vgc-zfp-fish oil 1,000 mg (120 mg-180 mg) (Fish Oil) 1 cap PO DAILY omeprazole 20 mg PO DAILY revefenacin (Yupelri) 175 mcg (3 mL) inhalation DAILY [facility] Medical History Cataract Insomnia Poor venous access Port-A-Cath in place PONV (postoperative nausea and vomiting) GERD (gastroesophageal reflux disease) 1st degree AV block (~09/2020) Sinus bradycardia on ECG (~09/2020) Hypothyroidism Benign paroxysmal positional vertigo Former smoker, stopped smoking in distant past Small cell lung cancer, left upper lobe (~09/2019) COPD (chronic obstructive pulmonary disease) History of throat problem Migraine headache Anxiety Hyperlipemia HTN (hypertension) Surgical History History of lobectomy of lung (~09/30/19) History of bronchoscopy (~09/17/19) History of removal of cyst (~1988) History of cholecystectomy (~1982) History of appendectomy (~1982) Family History Mother Breast cancer Father Throat cancer Sister Breast cancer Lupus GI bleed Social History Household Members: Children and None Household Members Other:: lives with her son Alcohol intake: never Patient Tobacco Use Status: Former Tobacco user Quit Date: 1995 Tobacco use type: Cigarette Years Smoked: 25 Second Hand Smoke Exposure: No service: No Current occupational status: retired 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 Physical Exam Vital Signs: BMI result Body Mass Index 35.2 Const Other: Well-nourished well-developed very friendly female awake alert and oriented x3 in no acute distress Extrem Other: Bilateral lower extremity examination shows good capillary refill, no skin lesions noted, normal sensation light touch Left knee examination shows a minimal effusion, minimal crepitus with range of motion, test along her medial joint line, positive Castro's test, no instability Results Reviewed Results Reviewed: X-rays of the patient's left knee show mild diffuse joint space narrowing, no acute bony abnormalities Assessment & Plan Assessment & Plan (1) Left knee pain: Code(s): M25.562 - Pain in left knee Plan Ms. Stone presents with progressively worsening left knee pain and mechanical symptoms possibly due to a medial meniscus tear. Thus, I will send her for an MRI of her left knee for further evaluation. She did request an open MRI because of her claustrophobia. I have no problem with this. I also had the patient fitted with a knee brace to help with her symptoms of instability. I do find that the knee brace is a medical necessity to help prevent falls. The patient will see me after her MRI to discuss the findings and treatment options. Feel free to call me at any time should questions regarding her orthopedic management arise. Thank very much for asking me to see this very friendly patient. I spent 22 minutes in reviewing the patient's records and imaging studies, seeing the patient and documenting in the medical record. Orders: Orders MR knee LT wo con Today S83.8X2A - Sprain of other specified parts of left knee, initial encounter Coding Level of Care Code New Pt Level 2 (06125) Diagnoses Left knee pain M25.562
[2023-03-08 07:58] VITALS: BMI 35.2
== END 2023-03-08 08:24 | disposition home or self-care (01) ==
PROVIDERS: PCP Internal Medicine; Visit Provider Orthopaedic Surgery
DX: M25.562 Pain in left knee (principal)
CPT/HCPCS: 99202; 99212

== ENCOUNTER → 2023-03-08 07:51 | Outpatient (BNVA) | payer MEDICARE, SELFPAY | PROVIDERS: PCP Internal Medicine; Visit Provider Orthopaedic Surgery | DX: M25.562 Pain in left knee (principal) | CPT/HCPCS: 99202 ==

== ENCOUNTER 2023-03-22 08:27 | Outpatient (AMB) | payer MEDICARE, SELFPAY ==
--- NOTE | 2023-03-22 08:38 | A.OFFVIS_ITS ---
Intake Vital Signs 03/22/23 08:40 Height 5 ft Weight 180 lb BMI 35.2 Intake Visit Reasons: Ov- Left knee MRI review Intake Note: Ashlyn monique 78 year old female presents with complaints of intermittent discomfort in her left knee. She has been wearing a knee brace which gives her mild relief. She continues with her activity modifications. She states that her symptoms have gotten somewhat better over the last few weeks. Allergies meperidine [From DEMEROL] Allergy (Mild, Verified 03/12/23 09:21) GI SYMPTOMS Penicillins [PCN] Allergy (Mild, Verified 03/12/23 09:21) RASH codeine [CODEINE] Adverse Reaction (Mild, Verified 03/12/23 09:21) GI UPSET morphine [MORPHINE] Adverse Reaction (Mild, Verified 03/12/23 09:21) GI UPSET Medication List - Last Reconciled 03/22/23 by Feliz Gil MD albuterol sulfate 90 mcg/actuation 2 puffs inhalation Q4-6H PRN alprazolam 0.25 mg PO BID atenolol 12.5 mg PO DAILY atorvastatin 1 tab PO MOWEFR@2100 cholecalciferol (vitamin D3) (Vitamin D3) 50 mcg PO DAILY furosemide 2 tabs PO DAILY ipratropium-albuterol 0.5 mg-3 mg(2.5 mg base)/3 mL 3 mL inhalation Q4-6H PRN 30 days levothyroxine 25 mcg PO DAILY meclizine 12.5 mg PO Q6H PRN meclizine 12.5 mg PO TID PRN omega 1-hwa-nyi-fish oil 1,000 mg (120 mg-180 mg) (Fish Oil) 1 cap PO DAILY omeprazole 20 mg PO DAILY revefenacin (Yupelri) 175 mcg (3 mL) inhalation DAILY trazodone 25 mg (1/2 x 50 mg) PO BEDTIME PRN PFSH Medical History Cataract Insomnia Poor venous access Port-A-Cath in place PONV (postoperative nausea and vomiting) GERD (gastroesophageal reflux disease) 1st degree AV block (~09/2020) Sinus bradycardia on ECG (~09/2020) Hypothyroidism Benign paroxysmal positional vertigo Former smoker, stopped smoking in distant past Small cell lung cancer, left upper lobe (~09/2019) COPD (chronic obstructive pulmonary disease) History of throat problem Migraine headache Anxiety Hyperlipemia HTN (hypertension) Surgical History History of lobectomy of lung (~09/30/19) History of bronchoscopy (~09/17/19) History of removal of cyst (~1988) History of cholecystectomy (~1982) History of appendectomy (~1982) Family History Mother Breast cancer Father Throat cancer Sister Breast cancer Lupus GI bleed Social History Household Members: Children and None Household Members Other:: lives with her son Alcohol intake: never Patient Tobacco Use Status: Former Tobacco user Quit Date: 1995 Tobacco use type: Cigarette Years Smoked: 25 Second Hand Smoke Exposure: No service: No Current occupational status: retired 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, 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 [employer] Physical Exam Vital Signs: BMI result Body Mass Index 35.2 Const Other: Well-nourished well-developed very friendly female awake alert and oriented x3 in no acute distress Extrem Other: Bilateral lower extremity examination shows good capillary refill, no skin lesions noted, normal sensation light touch Left knee examination shows a minimal effusion, mild crepitus with range of motion, tenderness along her medial joint line, positive Castro's test, negative Michelle's test Results Reviewed Results Reviewed: MRI of the patient's left knee shows mild diffuse degenerative changes as well as a tear of her medial Assessment & Plan Assessment & Plan (1) Left knee pain: Code(s): M25.562 - Pain in left knee Plan Ms. Stone presents with intermittent left knee pain and mechanical symptoms due to early degenerative joint disease as well as tearing of her medial meniscus. I had a lengthy discussion with the patient regarding the treatment options. At this point the patient's symptoms seem to be improving with non operative treatments. She will continue with her home exercise program. She will contact me prior to her follow-up appointment in 2 months should any questions or concerns arise. Feel free to call me at any time should questions regarding her orthopedic management arise. I spent 22 minutes in reviewing the patient's records and imaging studies, seeing the patient and documenting in the medical record. Coding Level of Care Code Est Pt Level 2 (41691) Diagnoses Left knee pain M25.562
[2023-03-22 08:40] VITALS: BMI 35.2
== END 2023-03-22 09:01 | disposition home or self-care (01) ==
PROVIDERS: PCP Internal Medicine; Visit Provider Orthopaedic Surgery
DX: M25.562 Pain in left knee (principal)
CPT/HCPCS: 99212

== ENCOUNTER → 2023-03-22 08:27 | Outpatient (BNVA) | payer MEDICARE, SELFPAY | PROVIDERS: PCP Internal Medicine; Visit Provider Orthopaedic Surgery | DX: M25.562 Pain in left knee (principal) | CPT/HCPCS: 99212 ==

== ENCOUNTER 2023-04-13 08:36 | Outpatient (REF) | payer MEDICARE, SELFPAY ==
--- NOTE | ~2023-04-13 | CT_ITS ---
EXAMINATION: CT CHEST WITHOUT CONTRAST CLINICAL INFORMATION: Follow-up lung cancer. COMPARISON: CT chest 03/13/2022 TECHNIQUE: Multidetector volumetric CT imaging of the chest was done. Axial MIP volume rendering provided. Sagittal and coronal reformatted images were obtained. This CT examination was performed using dose optimization techniques as appropriate, variously including the following: *Automated exposure control *Adjustment of mA and/or kV according to patient size (this includes techniques or standardized protocols for targeted exams where dose is matched to indication/reason for exam; i.e. 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 LUNGS: There is slight loss of left lung volume status post postsurgical changes. This results in mild mediastinal shift to the left and elevation of left hemidiaphragm. There is underlying emphysema with subpleural reticulation throughout both lungs. There are punctate 1-2mm calcifications both lower lobes. There is a 6 mm nodule right lower lobe adjacent to the major fissure axial image 311/7, stable. There are additional smaller nodules 2 mm and less which are stable. 8 mm density right lower lobe adjacent to major fissure is likely focal atelectasis. No new pulmonary nodules or mass or consolidation seen. MEDIASTINUM: Thyroid lobes are symmetrical and normal. The central trachea and bronchi widely patent. Heart size and the great vessels are normal caliber. Small shotty mediastinal lymph nodes are stable. There is no pericardial effusion. There is a right jugular venous port in satisfactory position in mid to distal SVC. CORONARY ARTERY CALCIFICATION: Moderate coronary artery calcifications are present PLEURA: There is no pleural effusion. No pleural mass or thickening. AXILLA: There are small shotty lymph nodes in the axilla. UPPER ABDOMEN: The liver is mildly heterogeneous likely fatty infiltration. Visualized spleen and bilateral adrenal glands unremarkable. OSSEOUS STRUCTURES: There is thoracic kyphosis. There is degenerative ventral spondylosis mid and lower dorsal spine. No lytic or sclerotic process seen. CT/CT chest wo IV con IMPRESSION: Stable postsurgical changes left upper lobe with loss of left lung volume, and lateral mediastinal shift and elevated left hemidiaphragm, stable. Emphysema with chronic interstitial lung disease and multiple small pulmonary nodules that are 2 mm and less. No new pulmonary nodules seen. No abnormal mediastinal, hilar or axillary lymphadenopathy. Fleischner guidelines were followed.
== END 2023-04-13 08:37 | disposition home or self-care (01) ==
LOC: HO.CT 08:36
PROVIDERS: PCP Internal Medicine; Visit Provider Physician Assistant Surgical
DX: C34.90 Malignant neoplasm of unspecified part of unspecified bronchus or lung (principal)
CPT/HCPCS: 71250

== ENCOUNTER 2023-05-17 12:20 | Outpatient (REF) | payer MEDICARE, SELFPAY ==
[2023-05-17 13:23] LABS: MANUAL DIFF FLAG NO
[2023-05-17 13:39] LABS: Appearance Urine Clear; Color Urine Yellow; Glucose Urine UA Negative (Negative); Leukocyte Esterase Urine Moderate (2+) (Negative); Nitrite Urine Negative (Negative); Specific Gravity - Urine <= 1.005 (1.005-1.025); UMIC TRIGGER UACC YES; Urine Blood Negative (Negative); Urine Ketones Negative (Negative); Urine Protein Negative (Neg-Trace)
[2023-05-17 13:43] LABS: Bacteria Urine None Seen (None Seen); Basophils Absolute Auto 0.1 X10*3/uL (0.0-0.2); Basophils Percent Auto 0.7 % (0-2); Eosinophils Absolute Auto 0.2 X10*3/uL (0.0-0.4); Eosinophils Percent Auto 2.1 % (0-4); Hematocrit 40.1 % (37.0-47.0); Hemoglobin 13.3 g/dl (12.0-16.0); Hyaline Casts Urine 0-2 /LPF (0-2); Imm Gran Abs Auto 0.07 X10*3/uL (0.00-0.03); Imm Gran Pct Auto 0.8 % (0.0-0.4); Lymphocytes Absolute Auto 2.6 X10*3/uL (1.2-4.9); Lymphocytes Percent Auto 30.2 % (20-40); Mean Corpuscular HGB Conc 33.2 g/dl (31.0-35.0); Mean Corpuscular Hemoglobin 29.8 pg (27.0-33.0); Mean Corpuscular Volume 89.9 fL (80.0-98.0); Mean Platelet Volume 9.5 fL (9.4-12.3); Monocytes Absolute Auto 0.6 X10*3/uL (0.1-1.2); Neutrophils Percent Auto 59.2 % (45-73); Platelet Count 462 X10*3/uL (160-400); RBC Urine 0-2 /HPF (0-2); Red Blood Count 4.46 X10*6/uL (4.20-5.50); Red Cell Distribution Width 13.3 % (11.0-16.0); Squamous Epithelial Cell Urine 0-2 /HPF (0-2); UACC Culture Trigger YES; White Blood Count 8.5 X10*3/uL (4.8-10.8)
[2023-05-17 14:03] LABS: Alanine Aminotransferase 10 U/L (0-31); Albumin Level 4.3 g/dL (3.5-5.0); Alkaline Phosphatase 73 U/L (39-117); Anion Gap 15 (12-20); Aspartate Amino Transferase 20 U/L (5-31); Bilirubin Total 0.4 mg/dL (0.0-1.0); Blood Urea Nitrogen 6 mg/dL (9-16); Calcium 9.3 mg/dL (8.4-10.2); Carbon Dioxide 31 mmol/L (22-29); Chloride 100 mmol/L (96-108); Estimated Glomerular Filt Rate > 60; Glucose Random 101 mg/dL (60-115); Potassium 3.5 mmol/L (3.3-5.1); Sodium 142 mmol/L (135-145); Total Protein 8.5 g/dL (6.5-8.0)
[2023-05-17 14:27] LABS: Free T4 (Free Thyroxine) 0.89 ng/dL (0.71-1.85); Thyroid Stimulating Hormone 0.97 uIU/mL (0.32-4.0)
== END 2023-05-17 12:21 | disposition home or self-care (01) ==
LOC: HO.10HDL 12:20
PROVIDERS: Visit Provider Internal Medicine
DX: J44.9 Chronic obstructive pulmonary disease, unspecified (principal); I10 Essential (primary) hypertension; E03.9 Hypothyroidism, unspecified; R82.90 Unspecified abnormal findings in urine; Z85.118 Personal history of other malignant neoplasm of bronchus and lung
CPT/HCPCS: 36415; 80053; 81001; 84439; 84443; 85025; 87086

== ENCOUNTER 2023-06-21 08:23 | Outpatient (AMB) | payer MEDICARE, SELFPAY ==
[2023-06-21 08:23] VITALS: BMI 35.2
--- NOTE | 2023-06-21 08:23 | A.OFFVIS_ITS ---
Intake Vital Signs 06/21/23 08:23 Height 5 ft Weight 180 lb BMI 35.2 Intake Visit Reasons: OV- Left knee pain Intake Note: Ashlyn is a 78 year old female who presents for a follow up of her Left knee pain. The patient states that her knee discomfort has improved somewhat since her last visit. She continues to wear her knee brace on a daily basis. She takes Tylenol as needed for discomfort. She denies chills. Allergies meperidine [From DEMEROL] Allergy (Mild, Verified 06/21/23 08:29) GI SYMPTOMS Penicillins [PCN] Allergy (Mild, Verified 06/21/23 08:29) RASH codeine [CODEINE] Adverse Reaction (Mild, Verified 06/21/23 08:29) GI UPSET morphine [MORPHINE] Adverse Reaction (Mild, Verified 06/21/23 08:29) GI UPSET Medication List - Last Reconciled 06/21/23 by Feliz Gil MD albuterol sulfate 90 mcg/actuation 2 puffs inhalation Q4-6H PRN alprazolam 0.25 mg PO BID atenolol 12.5 mg PO DAILY atorvastatin 1 tab PO MOWEFR@2100 cholecalciferol (vitamin D3) (Vitamin D3) 50 mcg PO DAILY furosemide 2 tabs PO DAILY ipratropium-albuterol 0.5 mg-3 mg(2.5 mg base)/3 mL 3 mL inhalation Q4-6H PRN 30 days levothyroxine 25 mcg PO DAILY meclizine 12.5 mg PO Q6H PRN meclizine 12.5 mg PO TID PRN omega 4-vwr-hjb-fish oil 1,000 mg (120 mg-180 mg) (Fish Oil) 1 cap PO DAILY omeprazole 20 mg PO DAILY revefenacin (Yupelri) 175 mcg (3 mL) inhalation DAILY trazodone 25 mg (1/2 x 50 mg) PO BEDTIME PRN PFSH Medical History Cataract Insomnia Poor venous access Port-A-Cath in place PONV (postoperative nausea and vomiting) GERD (gastroesophageal reflux disease) 1st degree AV block (~09/2020) Sinus bradycardia on ECG (~09/2020) Hypothyroidism Benign paroxysmal positional vertigo Former smoker, stopped smoking in distant past Small cell lung cancer, left upper lobe (~09/2019) COPD (chronic obstructive pulmonary disease) History of throat problem Migraine headache Anxiety Hyperlipemia HTN (hypertension) Surgical History History of lobectomy of lung (~09/30/19) History of bronchoscopy (~09/17/19) History of removal of cyst (~1988) History of cholecystectomy (~1982) History of appendectomy (~1982) Family History Mother Breast cancer Father Throat cancer Sister Breast cancer Lupus GI bleed Social History Household Members: Children and None Household Members Other:: lives with her son Alcohol intake: never Patient Tobacco Use Status: Former Tobacco user Quit Date: 1995 Tobacco use type: Cigarette Years Smoked: 25 Second Hand Smoke Exposure: No service: No Current occupational status: retired 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 Physical Exam Vital Signs: BMI result Body Mass Index 35.2 Const Other: Well-nourished well-developed very friendly female awake alert and oriented x3 in no acute distress Extrem Other: Bilateral lower extremity examination shows good capillary refill, no skin lesions noted, normal sensation light touch Left knee examination shows a minimal effusion, minimal crepitus with range of motion, tenderness along her medial joint line, positive Castro's test, no instability Assessment & Plan Assessment & Plan (1) Left knee pain: Code(s): M25.562 - Pain in left knee Plan Ms. Stone presents with intermittent left knee discomfort due to degenerative joint disease as well as a tear of her medial meniscus. I had a lengthy discussion with the patient regarding the treatment options. At this point the patient's symptoms are tolerable to her. We will hold off on a cortisone injection. She will continue using her knee brace. She will follow up with me on an as-needed basis should her symptoms worsen in any way. Feel free to call me at any time should questions regarding her orthopedic management arise. I spent 20 minutes in reviewing the patient's records and imaging studies, seeing the patient and documenting in the medical record. Coding Level of Care Code Est Pt Level 2 (27585) Diagnoses Left knee pain M25.562
== END 2023-06-21 08:46 | disposition home or self-care (01) ==
PROVIDERS: PCP Internal Medicine; Visit Provider Orthopaedic Surgery
DX: M17.12 Unilateral primary osteoarthritis, left knee (principal); S83.242A Other tear of medial meniscus, current injury, left knee, initial encounter
CPT/HCPCS: 99213

== ENCOUNTER → 2023-06-21 08:23 | Outpatient (BNVA) | payer MEDICARE, SELFPAY | PROVIDERS: PCP Internal Medicine; Visit Provider Orthopaedic Surgery | DX: M17.12 Unilateral primary osteoarthritis, left knee (principal); S83.242A Other tear of medial meniscus, current injury, left knee, initial encounter | CPT/HCPCS: 99212 ==

== ENCOUNTER 2023-07-13 10:56 | Outpatient (AMB) | payer MEDICARE, SELFPAY ==
[2023-07-13 10:57] VITALS: BP 126/74; PULSE 80; O2SAT 96; BMI 33.0
--- NOTE | 2023-07-13 10:57 | A.OFFVIS_ITS ---
Intake Vital Signs 07/13/23 10:57 Height 5 ft Weight 169 lb BMI 33.0 BP 126/74 Blood Pressure Location Rt brachial Position Sitting Pulse 80 Pulse Source Doppler Pulse Oximetry (%) 96 Oxygen Delivery Method Room Air Intake Visit Reasons: copd Allergies meperidine [From DEMEROL] Allergy (Mild, Verified 06/21/23 08:29) GI SYMPTOMS Penicillins [PCN] Allergy (Mild, Verified 06/21/23 08:29) RASH codeine [CODEINE] Adverse Reaction (Mild, Verified 06/21/23 08:29) GI UPSET morphine [MORPHINE] Adverse Reaction (Mild, Verified 06/21/23 08:29) GI UPSET HPI copd HPI Details 78-year-old lady, former 30+ pack-year s moker, quit 20 years prior, with underlying history of small cell lung cancer status post left upper lobectomy September 2019 and chemotherapy, followed for mild COPD.? Patient was unable to afford Anoro, Brovana, or Stiolto.? She denies recent COPD exacerbation.? Patient had post pulmonary rehab secondary to torn meniscus, but plans on returning. She continues on duo nebs and albuterol MDI with reasonable control of her symptoms. [facility] Medical History Cataract Insomnia Poor venous access Port-A-Cath in place PONV (postoperative nausea and vomiting) GERD (gastroesophageal reflux disease) 1st degree AV block (~09/2020) Sinus bradycardia on ECG (~09/2020) Hypothyroidism Benign paroxysmal positional vertigo Former smoker, stopped smoking in distant past Small cell lung cancer, left upper lobe (~09/2019) COPD (chronic obstructive pulmonary disease) History of throat problem Migraine headache Anxiety Hyperlipemia HTN (hypertension) Surgical History History of lobectomy of lung (~09/30/19) History of bronchoscopy (~09/17/19) History of removal of cyst (~1988) History of cholecystectomy (~1982) History of appendectomy (~1982) Family History Mother Breast cancer Father Throat cancer Sister Breast cancer Lupus GI bleed Social History Household Members: Children and None Household Members Other:: lives with her son Alcohol intake: never Patient Tobacco Use Status: Former Tobacco user Quit Date: 1995 Tobacco use type: Cigarette Years Smoked: 25 Second Hand Smoke Exposure: No service: No Current occupational status: retired 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, 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 [employer] Const Denies daytime sleepiness, Denies excessive sweating, Denies fatigue, Denies fever(s), Denies lethargy, Denies malaise, Denies night sweats, Denies snoring and Denies weight loss Eyes Denies blurry vision and Denies itchy eyes ENT Denies nasal congestion, Denies post nasal drip, Denies sinus pain, Denies sinus pressure and Denies other ( Thrush) Card Denies chest pain, Denies pedal edema, Denies dyspnea, Denies orthopnea and Denies paroxysmal nocturnal dyspnea Resp Denies cough, Denies hemoptysis, Denies excessive phlegm production, Denies dyspnea, Denies snoring and Denies wheezing GI Denies abdominal pain and Denies heartburn Musc Denies myalgias, Denies arthralgias and Denies joint swelling Skin/Breast Denies rash Neuro Denies memory loss and Denies seizure-like activity Psych Denies abnormal sleep pattern, Denies anxiety and Denies memory loss Endo Denies excessive sweating, Denies fatigue and Denies heat intolerance Ken/Lymph Denies easy bruising Aller/Immun Denies itchy eyes, Denies seasonal rhinorrhea and Denies wheezing Physical Exam Vital Signs: Last Vital Signs Pulse 80 07/13/23 10:57 BP 126/74 07/13/23 10:57 Pulse Ox 96 07/13/23 10:57 Oxygen Delivery Method Room Air 07/13/23 10:57 BMI result Body Mass Index 33.0 Const General: no acute distress and alert Nutritional Appearance: not obese Orientation/consciousness: Other orientation findings ( oriented) HEENT Head: Yes atraumatic Eyes General: appearance normal, both eyes and all related structures Sclerae: sclerae normal EOM: EOMs intact bilaterally Neck Neck: Yes supple Lymphatic: no lymphadenopathy noted Resp Effort & Inspection: normal respiratory effort and no use of accessory muscles Auscultation: clear to auscultation bilaterally Cardio Rate: regular rate Rhythm: regular rhythm Heart sounds: no gallops, no murmurs and no rubs Skin General skin exam: other ( warm) Extrem General: No clubbing, No cyanosis and No edema Assessment & Plan Assessment & Plan (1) COPD (chronic obstructive pulmonary disease): Code(s): J44.9 - Chronic obstructive pulmonary disease, unspecified Plan: Suboptimal, but reasonable controlled duo nebs and albuterol MDI. Will add nebulized budesonide. (2) Small cell lung cancer, left upper lobe: Onset Date: ~09/2019 Comment: (pT1b pN0, stage IA2 - s/p OTF lobectomy 09/2019, s/p 4 cycles of carboplatin AUC 5 and etoposide) Code(s): C34.12 - Malignant neoplasm of upper lobe, left bronchus or lung Plan: Status post left upper lobe lobectomy in September of 2019 and chemotherapy. Continues to follow-up with thoracic surgery at [facility], last March of 2023. Follow-up CT scan in March of 2024. Coding Level of Care Code Est Pt Level 4 (98392) Diagnoses COPD (chronic obstructive pulmonary disease) J44.9 Small cell lung cancer, left upper lobe C34.12
== END 2023-07-13 11:23 | disposition home or self-care (01) ==
PROVIDERS: PCP Internal Medicine; Visit Provider Internal Medicine Pulmonary Disease
DX: J44.9 Chronic obstructive pulmonary disease, unspecified (principal); C34.12 Malignant neoplasm of upper lobe, left bronchus or lung
CPT/HCPCS: 99214

== ENCOUNTER → 2023-07-13 10:56 | Outpatient (BNVA) | payer MEDICARE, SELFPAY | PROVIDERS: PCP Internal Medicine; Visit Provider Internal Medicine Pulmonary Disease | DX: J44.9 Chronic obstructive pulmonary disease, unspecified (principal); C34.12 Malignant neoplasm of upper lobe, left bronchus or lung; Z90.2 Acquired absence of lung [part of] | CPT/HCPCS: 99212 ==

== ENCOUNTER 2023-09-19 10:44 | Outpatient (REF) | payer MEDICARE, SELFPAY ==
[2023-09-19 13:03] LABS: MANUAL DIFF FLAG NO
[2023-09-19 13:06] LABS: Basophils Absolute Auto 0.1 X10*3/uL (0.0-0.2); Basophils Percent Auto 1.2 % (0-2); Eosinophils Absolute Auto 0.2 X10*3/uL (0.0-0.4); Eosinophils Percent Auto 2.1 % (0-4); Hematocrit 41.1 % (37.0-47.0); Hemoglobin 14.1 g/dl (12.0-16.0); Imm Gran Abs Auto 0.03 X10*3/uL (0.00-0.03); Imm Gran Pct Auto 0.4 % (0.0-0.4); Lymphocytes Absolute Auto 2.6 X10*3/uL (1.2-4.9); Lymphocytes Percent Auto 31.3 % (20-40); Mean Corpuscular HGB Conc 34.3 g/dl (31.0-35.0); Mean Corpuscular Hemoglobin 30.4 pg (27.0-33.0); Mean Corpuscular Volume 88.6 fL (80.0-98.0); Mean Platelet Volume 9.8 fL (9.4-12.3); Monocytes Absolute Auto 0.7 X10*3/uL (0.1-1.2); Neutrophils Absolute Auto 4.7 x10*3/uL (2.0-8.3); Platelet Count 318 X10*3/uL (160-400); Red Blood Count 4.64 X10*6/uL (4.20-5.50); Red Cell Distribution Width 13.3 % (11.0-16.0); White Blood Count 8.2 X10*3/uL (4.8-10.8)
[2023-09-19 13:13] LABS: Appearance Urine Cloudy; Color Urine Yellow; Glucose Urine UA Negative (Negative); Leukocyte Esterase Urine Large (3+) (Negative); Nitrite Urine Negative (Negative); UMIC TRIGGER UACC YES; Urine Blood Negative (Negative); Urine Ketones Negative (Negative); Urine Protein Negative (Neg-Trace)
[2023-09-19 13:26] LABS: Alanine Aminotransferase 18 U/L (0-31); Albumin Level 4.6 g/dL (3.5-5.0); Alkaline Phosphatase 75 U/L (39-117); Anion Gap 16 (12-20); Aspartate Amino Transferase 21 U/L (5-31); Bilirubin Total 0.5 mg/dL (0.0-1.0); Blood Urea Nitrogen 8 mg/dL (9-16); Carbon Dioxide 26 mmol/L (22-29); Chloride 102 mmol/L (96-108); Cholesterol 247 mg/dL (<200); Estimated Glomerular Filt Rate > 60; Glucose Random 106 mg/dL (60-115); Potassium 4.1 mmol/L (3.3-5.1); Sodium 140 mmol/L (135-145); Total Protein 8.6 g/dL (6.5-8.0)
[2023-09-19 13:33] LABS: Bacteria Urine None Seen (None Seen); Hyaline Casts Urine 0-2 /LPF (0-2); Other Crystals Urine Present; RBC Urine 0-2 /HPF (0-2); Squamous Epithelial Cell Urine 0-2 /HPF (0-2); UACC Culture Trigger YES
[2023-09-19 13:37] LABS: Free T4 (Free Thyroxine) 0.87 ng/dL (0.71-1.85); Thyroid Stimulating Hormone 2.41 uIU/mL (0.32-4.0)
== END 2023-09-19 10:45 | disposition home or self-care (01) ==
LOC: HO.10HDL 10:44
PROVIDERS: Visit Provider Internal Medicine
DX: I10 Essential (primary) hypertension (principal); J44.9 Chronic obstructive pulmonary disease, unspecified; E03.9 Hypothyroidism, unspecified
CPT/HCPCS: 36415; 80053; 81001; 82465; 84439; 84443; 85025; 87086

== ENCOUNTER 2023-11-08 07:25 | Outpatient (REF) | payer MEDICARE, SELFPAY ==
--- NOTE | ~2023-11-08 | CT_ITS ---
EXAMINATION: CT CHEST WITHOUT CONTRAST CLINICAL INFORMATION: Surveillance status post lung resection for lung CA. COMPARISON: Numerous priors, most recently 04/13/2023. TECHNIQUE: Multidetector volumetric CT imaging of the chest was done. Axial MIP volume rendering provided. Sagittal and coronal reformatted images were obtained. This CT examination was performed using dose optimization techniques as appropriate, variously including the following: *Automated exposure control *Adjustment of mA and/or kV according to patient size (this includes techniques or standardized protocols for targeted exams where dose is matched to indication/reason for exam; i.e. extremities or head) *Use of iterative reconstruction technique DLP: 232 mGy-cm Please note, due to [employer] technical systems and internal issues, this examination was not available for dictation until 12/11/2023. 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 Tip in the cavoatrial junction. Volume loss left lung with elevated left hemidiaphragm. Increased BMI. LUNGS: -Left upper lobe resection with compensatory hyperaeration of the left lower lobe. -Paraseptal and centrilobular emphysema present, with subpleural blebs and reticular changes in the subpleural regions left greater than right lungs. There is a slight upper lobe predominance. -Stable nodular-like focal opacity in the most lateral superior segment right lower lobe, abutting the pleura and lateral major fissure, entirely unchanged (series 5, image 303). This is felt to represent focal scarring and/or chronic cicatrization atelectasis. -Average diameter 5 mm nodule superior right middle lobe (series 5, image 293), unchanged and benign. This is likely within a dilated bronchiole. -Mild right lower lobe basilar scarring with mild tenting of the right hemidiaphragm posteriorly, stable. -Suture line in the anterior left apex, similar. -3 mm subpleural groundglass nodule in the lateral superior segment left lower lobe (image 196, series 5). This is stable. -There are a few scattered 1-2 mm calcified granulomata bilaterally. These are unchanged. -No new or suspicious nodules in either lung. -There is mild cylindrical bronchiectasis throughout the left lower lobe, and also within the right lower lobe, with no definite endobronchial filling defect or bronchial wall thickening. This is unchanged. PLEURA: There is no pleural effusion. No pleural mass or thickening. MEDIASTINUM: -No dominant thyroid abnormality. -Aorta is uncoiled and moderately calcified without evidence of aneurysm. Great vessels branch normally. -Main pulmonary artery is prominent but diameter measures within the limits of normal. -No pathologic mediastinal or hilar lymphadenopathy is evident. There are small short axis subcentimeter precarinal, subcarinal, prevascular, and AP window lymph nodes which are stable and unchanged. -The esophagus appears normal. -Heart size is normal. Mild calcification of the mitral annulus present. CORONARY ARTERY CALCIFICATION: Mild to moderate three-vessel coronary calcifications. There is left main calcification present. AXILLA/CHEST WALL: No lymphadenopathy or masses. UPPER ABDOMEN: Moderate to heavy calcification of the imaged abdominal aorta. Diverticulosis of the splenic flexure. There is diffuse fatty infiltration of the liver without focal lesion. OSSEOUS STRUCTURES: -Diffuse osteopenia. No suspicious lytic or blastic bone lesion. -Degenerative changes in both shoulder joints. 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 -Congenital fusion T4-T5. -Arthritic changes in the sternoclavicular joints. CT/CT chest wo IV con IMPRESSION: 1. Overall stable examination without evidence of recurrent neoplastic disease. 2. Stable postoperative changes status post resection left upper lobe with compensatory hyperaeration left lower lobe. 3. Mild to moderate centrilobular and paraseptal emphysema. 4. Stable and unchanged small pulmonary nodules. No new or suspicious nodules seen. 5. No abnormal lymphadenopathy. 6. Mild cylindrical bronchiectasis bilateral lower lobes, stable and unchanged. 7. No definite active lung disease. 8. Chest port right hemithorax, with tip terminating in the cavoatrial junction. 9. See the body of the report for additional ancillary findings. Fleischner guidelines were followed.
== END 2023-11-08 07:26 | disposition home or self-care (01) ==
LOC: HO.CT 07:25
PROVIDERS: PCP Internal Medicine; Visit Provider Internal Medicine
DX: C34.90 Malignant neoplasm of unspecified part of unspecified bronchus or lung (principal)
CPT/HCPCS: 71250

== ENCOUNTER → 2023-11-08 07:27 | Outpatient (BNV) | payer MEDICARE, SELFPAY | PROVIDERS: PCP Internal Medicine; Visit Provider Radiology Diagnostic Radiology | DX: C34.90 Malignant neoplasm of unspecified part of unspecified bronchus or lung (principal); Z90.2 Acquired absence of lung [part of] | CPT/HCPCS: 71250 ==

== ENCOUNTER 2024-01-03 11:09 | Outpatient (REF) | payer MEDICARE, SELFPAY ==
[2024-01-03 11:58] LABS: Appearance Urine Clear; Color Urine Yellow; Glucose Urine UA Negative (Negative); Leukocyte Esterase Urine Moderate (2+) (Negative); Nitrite Urine Negative (Negative); Specific Gravity - Urine <= 1.005 (1.005-1.025); UMIC TRIGGER UACC YES; Urine Blood Negative (Negative); Urine Ketones Negative (Negative); Urine Protein Negative (Neg-Trace)
[2024-01-03 12:00] LABS: Bacteria Urine None Seen (None Seen); Hyaline Casts Urine 0-2 /LPF (0-2); RBC Urine 0-2 /HPF (0-2); Squamous Epithelial Cell Urine 0-2 /HPF (0-2); UACC Culture Trigger YES
== END 2024-01-03 11:10 | disposition home or self-care (01) ==
LOC: HO.10HDLNP 11:09
PROVIDERS: Visit Provider Internal Medicine
DX: R30.0 Dysuria (principal)
CPT/HCPCS: 81001; 87086

== ENCOUNTER 2024-03-12 21:15 | Emergency (ER) | payer MEDICARE, SELFPAY ==
--- NOTE | 2024-03-12 | ECG_ITS ---
Test Reason : WEAKNESS Blood Pressure : / mmHG Vent. Rate : 057 BPM Atrial Rate : 057 BPM P-R Int : 210 ms QRS Dur : 096 ms QT Int : 422 ms P-R-T Axes : 091 -13 -05 degrees QTc Int : 410 ms Sinus bradycardia with 1st degree A-V block Minimal voltage criteria for LVH, may be normal variant ( R in aVL ) Inferior infarct (cited on or before 01-JUN-2021) Anterior infarct (cited on or before 01-JUN-2021) Abnormal ECG When compared with ECG of 01-JUN-2021 08:53, Premature ventricular complexes are no longer Present Nonspecific T wave abnormality, worse in Anterior leads Referred By: Generic ED Physician Electronically Signed By:Miguel Tony
--- NOTE | ~2024-03-12 | XR_ITS ---
EXAMINATION: XR CHEST CLINICAL INFORMATION: Chest congestion COMPARISON: CT chest 11/08/2023, chest radiograph 06/01/2021 TECHNIQUE: 2 views of the chest were obtained. FINDINGS: Again seen is a right chest wall jugular port with its tip at the SVC/RA junction. There is continued volume loss in the left hemithorax with an elevated left hemidiaphragm and subpleural increased interstitial markings, similar to that seen on the prior CT heart size is normal. There is no evidence of CHF. The right lung is clear. No pleural effusions are present. XR/XR chest 2V IMPRESSION: No acute intrathoracic disease. Chronic changes in the left hemithorax as described above. Electronically signed by: Toby Calixto MD 03/12/2024 11:54 PM EDT
[2024-03-12 21:35] VITALS: BP 177/61; PULSE 60; RESP 18; TEMP 36.4; O2SAT 98; BMI 33.4
[2024-03-12 21:59] LABS: MANUAL DIFF FLAG NO
[2024-03-12 22:01] LABS: Basophils Absolute Auto 0.1 X10*3/uL (0.0-0.2); Eosinophils Absolute Auto 0.3 X10*3/uL (0.0-0.4); Eosinophils Percent Auto 3.4 % (0-4); Hemoglobin 12.2 g/dl (12.0-16.0); Imm Gran Abs Auto 0.03 X10*3/uL (0.00-0.03); Imm Gran Pct Auto 0.4 % (0.0-0.4); Lymphocytes Absolute Auto 2.7 X10*3/uL (1.2-4.9); Lymphocytes Percent Auto 35.4 % (20-40); Mean Corpuscular HGB Conc 33.9 g/dl (31.0-35.0); Mean Corpuscular Volume 88.7 fL (80.0-98.0); Mean Platelet Volume 8.9 fL (9.4-12.3); Monocytes Absolute Auto 0.8 X10*3/uL (0.1-1.2); Monocytes Percent Auto 10.2 % (2-11); Neutrophils Absolute Auto 3.8 x10*3/uL (2.0-8.3); Neutrophils Percent Auto 49.6 % (45-73); Platelet Count 276 X10*3/uL (160-400); Red Blood Count 4.06 X10*6/uL (4.20-5.50); Red Cell Distribution Width 13.5 % (11.0-16.0); White Blood Count 7.6 X10*3/uL (4.8-10.8)
[2024-03-12 22:33] LABS: Potassium 2.8 mmol/L (3.3-5.1)
[2024-03-12 22:34] LABS: Alanine Aminotransferase 129 U/L (0-31); Alkaline Phosphatase 134 U/L (39-117); Anion Gap 16 (12-20); Aspartate Amino Transferase 55 U/L (5-31); Bilirubin Total 0.4 mg/dL (0.0-1.0); Blood Urea Nitrogen 8 mg/dL (9-16); Calcium 9.3 mg/dL (8.4-10.2); Carbon Dioxide 24 mmol/L (22-29); Chloride 103 mmol/L (96-108); Creatinine Clr Calc Pharmacy 54.5; Estimated Glomerular Filt Rate > 60; Glucose Random 116 mg/dL (60-115); Sodium 140 mmol/L (135-145); Total Protein 7.6 g/dL (6.5-8.0)
[2024-03-12 22:38] LABS: Appearance Urine Clear; Color Urine Yellow; Glucose Urine UA Negative (Negative); Leukocyte Esterase Urine Large (3+) (Negative); Nitrite Urine Negative (Negative); PH 5.5 (5.0-9.0); Specific Gravity - Urine <= 1.005 (1.005-1.025); UMIC TRIGGER UACC YES; Urine Blood Trace (Negative); Urine Ketones Negative (Negative); Urine Protein Negative (Neg-Trace)
[2024-03-12 22:41] LABS: Bacteria Urine None Seen (None Seen); RBC Urine 0-2 /HPF (0-2); Squamous Epithelial Cell Urine 0-2 /HPF (0-2); UACC Culture Trigger YES; WBC Urine 21-50 /HPF (0-5)
[2024-03-12 22:50] LABS: Influenza A PCR NEGATIVE (Negative); Influenza B PCR NEGATIVE (Negative); Resp Syncy Virus RNA Qual PCR NEGATIVE (Negative); SARS COV2 PCR INHOUSE NEGATIVE (Negative)
--- NOTE | 2024-03-12 23:10 | PC.NURSE ---
received report from Nicole BEY, assume care of pt at this time
[2024-03-12 23:40] VITALS: BP 130/48; PULSE 54; RESP 16; TEMP 36.4; O2SAT 97
--- NOTE | 2024-03-12 23:57 | ED.GENADULT ---
HPI - General Adult General Chief complaint: General Medical Stated complaint: fever, chills, doesn't feel good Time Seen by Provider: 03/12/24 23:57 Source: patient and family Mode of arrival: ambulatory Limitations: no limitations History of Present Illness ED Provider: lorena KAMINSKI narrative: Patient's history of recurrent UTI comes here for having low-grade fever with chills decreased oral intake strong urine for last 4-5 days did not drink much fluids lately no flank pain vomiting does have nausea no diarrhea no significant abdominal pain Related Data Home Medications ?Medication ?Instructions ?Recorded ?Confirmed albuterol sulfate 90 mcg/actuation 2 puff inhalation Q4-6H PRN 04/13/20 12/11/23 aerosol inhaler Wheezing alprazolam 0.25 mg tablet 0.25 mg PO BID 04/13/20 12/11/23 atenolol 25 mg tablet 12.5 mg PO DAILY 04/13/20 12/11/23 levothyroxine 25 mcg tablet 25 mcg PO DAILY 04/13/20 03/13/24 meclizine 12.5 mg tablet 12.5 mg PO Q6H PRN Dizziness 04/13/20 12/11/23 omeprazole 20 mg capsule,delayed 20 mg PO DAILY 04/13/20 12/11/23 release atorvastatin 20 mg tablet 1 tab PO MOWEFR@2100 10/15/20 12/11/23 cholecalciferol (vitamin D3) 50 50 mcg PO DAILY 10/15/20 12/11/23 mcg (2,000 unit) capsule (Vitamin D3) furosemide 20 mg tablet 2 tab PO DAILY 10/15/20 12/11/23 omega 5-rnv-ctx-fish oil 1,000 mg 1 cap PO DAILY 10/15/20 12/11/23 (120 mg-180 mg) capsule (Fish Oil) meclizine 12.5 mg tablet 12.5 mg PO TID PRN Vertigo 03/08/23 12/11/23 Previous Rx's ?Medication ?Instructions ?Recorded ipratropium 0.5 mg-albuterol 3 mg 3 ml inhalation Q4-6H PRN wheezing 12/11/22 (2.5 mg base)/3 mL nebulization 30 days #270 mL soln budesonide 0.5 mg/2 mL suspension 0.5 mg (2 mL) inhalation BID 30 08/01/23 for nebulization days #120 mL trazodone 50 mg tablet 25 mg (1/2 x 50 mg) PO BEDTIME PRN 01/07/24 Insomnia #30 tabs cefuroxime axetil 250 mg tablet 250 mg PO BID 7 days #14 tabs 03/13/24 potassium chloride 20 mEq 20 meq PO DAILY #30 tabs 03/13/24 tablet,extended release Allergies Allergy/AdvReac Type Severity Reaction Status Date / Time meperidine [From DEMEROL] Allergy Mild GI SYMPTOMS Verified 03/12/24 21:36 Penicillins [PCN] Allergy Mild RASH Verified 03/12/24 21:36 codeine [CODEINE] AdvReac Mild GI UPSET Verified 03/12/24 21:36 morphine [MORPHINE] AdvReac Mild GI UPSET Verified 03/12/24 21:36 Review of Systems Review of Systems: Yes all other systems are reviewed and are negative PMFSH Past Medical History Medical History Cataract Insomnia Poor venous access Port-A-Cath in place PONV (postoperative nausea and vomiting) GERD (gastroesophageal reflux disease) 1st degree AV block (~09/2020) Sinus bradycardia on ECG (~09/2020) Hypothyroidism Benign paroxysmal positional vertigo Former smoker, stopped smoking in distant past Small cell lung cancer, left upper lobe (~09/2019) COPD (chronic obstructive pulmonary disease) History of throat problem Migraine headache Anxiety Hyperlipemia HTN (hypertension) Surgical History History of lobectomy of lung (~09/30/19) History of bronchoscopy (~09/17/19) History of removal of cyst (~1988) History of cholecystectomy (~1982) History of appendectomy (~1982) Family History Family History Mother Breast cancer Father Throat cancer Sister Breast cancer Lupus GI bleed Social History Social History Household Members: Children and None Household Members Other:: lives with her son Alcohol intake: never Patient Tobacco Use Status: Former Tobacco user Tobacco use type: Cigarette Years Smoked: 25 Smoked in Last 30 Days: No Second Hand Smoke Exposure: No Use of substances other than those prescribed or required for medical reasons: No Advance Directives: No Advance Directives Information Provided: Yes Do you have a plan to hurt others: No Plan service: No Current occupational status: retired 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, 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 Oriented X3. No acute distress. Eyes: No pallor or icterus ENT: Pharynx normal. Oral Mucosa moist Neck: Normal inspection. Neck supple. CVS: Normal heart rate and rhythm. Pulses normal. Respiratory: No respiratory distress. Equal air entry bilateral, no wheezing/rales/rhonchi Abdomen: Soft and nontender. Bowel sounds are present, no mass palpable, no CVA tenderness Skin: Skin warm and dry. Normal skin color. Normal skin turgor. Extremities: No lower extremity edema. No calf tenderness Neuro: Oriented X 3. No motor deficit. Medications Administered Discontinued Medications Generic Name Dose Route Start Last Admin Trade Name Freq PRN Reason Stop Dose Admin Acetaminophen 650 mg 03/13/24 05:37 03/13/24 05:44 Acetaminophen 325 Mg Tablet PO 03/13/24 05:38 650 mg ONCE ONE Administration Ceftriaxone Sodium 1 gm 03/13/24 00:00 03/13/24 00:57 Ceftriaxone Sodium 1 Gm Vial IVPUSH 03/13/24 00:01 1 gm ONCE ONE Administration Sodium Chloride 1,000 mls @ 999 mls/hr 03/13/24 00:00 03/13/24 03:45 Ns IV 03/13/24 01:00 Infused .Q1H1M ONE Infusion Potassium Chloride 10 meq in 100 mls @ 100 mls/hr 03/13/24 00:15 03/13/24 03:45 Potassium Chloride/H20 IV 03/13/24 02:14 Infused Q1H JADYN Infusion Potassium Chloride 40 meq 03/13/24 05:37 03/13/24 05:45 Potassium Chloride Er 20 Meq Tab.Er.Prt PO 03/13/24 05:38 40 meq ONCE ONE Administration Medical Decision Making Medical Decision Making [facility] Narrative: Patient has UTI with low potassium which was replaced no abdominal pain has slightly elevated liver enzymes patient advised to follow up as outpatient patient is given IV Rocephin Differential Diagnosis Differential Diagnoses: The differential diagnosis associated with the presentation includes Admission/Observation Consideration of admission/observation: Escalation of care including admission/observation considered Lab Data [facility] Lab Attestation statement: I reviewed the patient's lab results. 03/12/24 21:55 03/12/24 21:55 Labs: Lab Results 03/12/24 03/12/24 03/13/24 Range/Units 21:55 22:25 00:29 WBC 7.6 (4.8-10.8) X10*3/uL RBC 4.06 L (4.20-5.50) X10*6/uL Hgb 12.2 (12.0-16.0) g/dl Hct 36.0 L (37.0-47.0) % MCV 88.7 (80.0-98.0) fL MCH 30.0 (27.0-33.0) pg MCHC 33.9 (31.0-35.0) g/dl RDW 13.5 (11.0-16.0) % Plt Count 276 (160-400) X10*3/uL MPV 8.9 L (9.4-12.3) fL Immature Gran % (Auto) 0.4 (0.0-0.4) % Neut % (Auto) 49.6 (45-73) % Lymph % (Auto) 35.4 (20-40) % [place] % (Auto) 10.2 (2-11) % Eos % (Auto) 3.4 (0-4) % Baso % (Auto) 1.0 (0-2) % Lymph # (Auto) 2.7 (1.2-4.9) X10*3/uL [place] # (Auto) 0.8 (0.1-1.2) X10*3/uL Eos # (Auto) 0.3 (0.0-0.4) X10*3/uL Baso # (Auto) 0.1 (0.0-0.2) X10*3/uL Abs Immat Gran (auto) 0.03 (0.00-0.03) X10*3/uL Absolute Neuts (auto) 3.8 (2.0-8.3) x10*3/uL Absolute Nucleated RBC 0.000 (0.0-0.012) X10*3/uL Nucleated RBC % (auto) 0.0 (0.0-0.2) /100WBC Sodium 140 (135-145) mmol/L Potassium 2.8 L* D (3.3-5.1) mmol/L Chloride 103 (96-108) mmol/L Carbon Dioxide 24 (22-29) mmol/L Anion Gap 16 (12-20) BUN 8 L (9-16) mg/dL Creatinine 0.77 (0.5-1.4) mg/dL Estim Creat Clear Calc 54.5 Estimated GFR > 60 Random Glucose 116 H (60-115) mg/dL Lactic Acid 1.8 (0.5-2.0) mmol/L Calcium 9.3 D (8.4-10.2) mg/dL Total Bilirubin 0.4 (0.0-1.0) mg/dL AST 55 H (5-31) U/L ALT 129 H (0-31) U/L Alkaline Phosphatase 134 H (39-117) U/L Total Protein 7.6 (6.5-8.0) g/dL Albumin 4.0 (3.5-5.0) g/dL Urine Color Yellow Urine Appearance Clear Urine pH 5.5 (5.0-9.0) Ur Specific [place] <= 1.005 (1.005-1.025) Urine Protein Negative (Neg-Trace) mg/dL Urine Glucose (UA) Negative (Negative) mg/dL Urine Ketones Negative (Negative) mg/dL Urine Blood Trace H (Negative) Urine Nitrite Negative (Negative) Ur Leukocyte Esterase Large (3+) H (Negative) Urine RBC 0-2 (0-2) /HPF Urine WBC 21-50 H (0-5) /HPF Ur Squamous Epith Cells 0-2 (0-2) /HPF Urine Bacteria None Seen (None Seen) Hyaline Casts 3-5 (0-2) /LPF Influenza Type A (PCR) NEGATIVE (Negative) Influenza Type B (PCR) NEGATIVE (Negative) RSV RNA Qual (PCR) NEGATIVE (Negative) SARS-CoV-2 RNA (RT-PCR) NEGATIVE (Negative) Independent Interpretation I performed an independent interpretation of an: EKG Interpretation: Sinus bradycardia with heart rate of 57 beats per minute LVH no acute STT wave changes no acute ischemia Discharge Plan Discharge Clinical Impression: Acute UTI, Acute hypokalemia Patient Disposition: Home, Self-Care Instructions: Urinary Tract Infection in Women (DC), Hypokalemia (ED) Additional Instructions: Drink plenty of fluids Take antibiotics as prescribed Potassium tablets as advised Hold water pill till you start drinking normal amount of fluids Recheck potassium level Prescriptions: New cefuroxime axetil 250 mg tablet 250 mg PO BID 7 Days Qty: 14 0RF potassium chloride 20 mEq tablet extended release 20 meq PO DAILY Qty: 30 0RF No Action ipratropium-albuterol 0.5 mg-3 mg(2.5 mg base)/3 mL solution for nebulization 3 ml inhalation Q4-6H PRN (Reason: wheezing) 30 Days Qty: 270 6RF budesonide 0.5 mg/2 mL suspension for nebulization 0.5 mg inhalation BID 30 Days Qty: 120 6RF atorvastatin 20 mg tablet 1 tab PO MOWEFR@2100 furosemide 20 mg tablet 2 tab PO DAILY cholecalciferol (vitamin D3) [Vitamin D3] 50 mcg (2,000 unit) Capsule 50 mcg PO DAILY omega 5-oye-tbd-fish oil [Fish Oil] 1,000 mg (120 mg-180 mg) Capsule 1 cap PO DAILY atenolol 25 mg tablet 12.5 mg PO DAILY Rx Instructions: takes 12.5mg daily meclizine 12.5 mg tablet 12.5 mg PO Q6H PRN (Reason: Dizziness) levothyroxine 25 mcg tablet 25 mcg PO DAILY alprazolam 0.25 mg tablet 0.25 mg PO BID omeprazole 20 mg capsule,delayed release(DR/EC) 20 mg PO DAILY albuterol sulfate 90 mcg/actuation HFA aerosol inhaler 2 puff inhalation Q4-6H PRN (Reason: Wheezing) trazodone 50 mg Tablet 25 mg PO BEDTIME PRN (Reason: Insomnia) Qty: 30 0RF meclizine 12.5 mg tablet 12.5 mg PO TID PRN (Reason: Vertigo) Print Language: Hebrew
--- NOTE | 2024-03-13 00:46 | MHC.EDTECH ---
This pct assumed care of Patient ,midnight vitals taken ,lactic acid and both sets of blood culture drawn from different sites ,Patient was change into hospital gown and Patient was hooked up to phototypesetting equipment monitor ,Patient was escorted to walk to bathroom ,void and back to bed ,Patient drank a can of wanda claritza ,Patient was given warm blanket ,call dodge within Pt reach .
[2024-03-13] MEDS: Potassium Chloride/H20 10 MEQ/100 ML PIGGYBACK 100 MEQ IV ×2 (00:56→02:25)
[2024-03-13 00:57] LABS: Lactic Acid 1.8 mmol/L (0.5-2.0)
[2024-03-13] MEDS: cefTRIAXone sodium 1 GM VIAL IVPUSH (00:57)
[2024-03-13] MEDS: 0.9 % Sodium Chloride 1,000 ML 999 ML IV (00:57)
[2024-03-13 01:30] VITALS: BP 137/45; PULSE 50; RESP 14; TEMP 36.7; O2SAT 98
--- NOTE | 2024-03-13 01:31 | MHC.EDTECH ---
Patient in good sprits ,watching a movie on television ,snacking on saltines crackers and sipping on wanda claritza ,vitals taken ,call dodge within Pt reach .
[2024-03-13 04:00] VITALS: BP 145/42; PULSE 60; RESP 18; TEMP 37.2; O2SAT 95
[2024-03-13] MEDS: Acetaminophen 325 MG TABLET 650 MG PO (05:44)
[2024-03-13] MEDS: Potassium Chloride ER 20 MEQ TAB.ER.PRT 40 MEQ PO (05:45)
[2024-03-13 06:00] VITALS: BP 141/59; PULSE 53; RESP 18; TEMP 37.1; O2SAT 97
--- NOTE | 2024-03-13 07:05 | PC.NURSE ---
report to Debby BEY
[2024-03-13 07:18] VITALS: BP 141/59; PULSE 53; RESP 18; TEMP 37.1; O2SAT 97
== END 2024-03-13 07:18 | disposition home or self-care (01) ==
PROVIDERS: Emergency Provider Internal Medicine; PCP Internal Medicine
DX: N39.0 Urinary tract infection, site not specified (principal); E87.6 Hypokalemia; R50.9 Fever, unspecified; R53.1 Weakness; I10 Essential (primary) hypertension; C34.90 Malignant neoplasm of unspecified part of unspecified bronchus or lung; J44.9 Chronic obstructive pulmonary disease, unspecified; Z87.891 Personal history of nicotine dependence; Z03.818 Encounter for observation for suspected exposure to other biological agents ruled out
CPT/HCPCS: 0241U; 36415; 71046; 80053; 81001; 83605; 85025; 87040; 87086; 93005; 96365; 96366; 96375; 99285; J0696; J3480

== ENCOUNTER → 2024-03-12 21:44 | Outpatient (BNV) | payer MEDICARE, SELFPAY | PROVIDERS: Emergency Provider Internal Medicine; PCP Internal Medicine; Visit Provider Internal Medicine Cardiovascular Disease | DX: R94.31 Abnormal electrocardiogram [ECG] [EKG] (principal) | CPT/HCPCS: 93010 ==

== ENCOUNTER 2024-03-21 08:31 | Outpatient (REF) | payer MEDICARE, SELFPAY ==
[2024-03-21 09:16] LABS: Appearance Urine Cloudy; Color Urine Yellow; Glucose Urine UA Negative (Negative); Leukocyte Esterase Urine Large (3+) (Negative); Nitrite Urine Negative (Negative); PH 5.5 (5.0-9.0); Specific Gravity - Urine 1.015 (1.005-1.025); UMIC TRIGGER UACC YES; Urine Blood Small (1+) (Negative); Urine Ketones Negative (Negative); Urine Protein Trace mg/dL (Neg-Trace)
[2024-03-21 09:26] LABS: Bacteria Urine None Seen (None Seen); Hyaline Casts Urine 0-2 /LPF (0-2); Squamous Epithelial Cell Urine 0-2 /HPF (0-2); UACC Culture Trigger YES; WBC Urine 21-50 /HPF (0-5)
[2024-03-21 09:40] LABS: Anion Gap 13 (12-20); Blood Urea Nitrogen 6 mg/dL (9-16); Calcium 10.2 mg/dL (8.4-10.2); Carbon Dioxide 26 mmol/L (22-29); Chloride 107 mmol/L (96-108); Estimated Glomerular Filt Rate > 60; Glucose Random 98 mg/dL (60-115); Sodium 142 mmol/L (135-145)
== END 2024-03-21 08:32 | disposition home or self-care (01) ==
LOC: HO.LAB 08:31
PROVIDERS: PCP Internal Medicine; Visit Provider Internal Medicine
DX: I10 Essential (primary) hypertension (principal); E55.9 Vitamin D deficiency, unspecified; R30.0 Dysuria
CPT/HCPCS: 36415; 80048; 81001; 87086

== ENCOUNTER 2024-03-31 09:59 | Outpatient (REF) | payer MEDICARE, SELFPAY ==
[2024-03-31 11:04] LABS: Anion Gap 11 (12-20); Blood Urea Nitrogen 7 mg/dL (9-16); Calcium 9.6 mg/dL (8.4-10.2); Carbon Dioxide 26 mmol/L (22-29); Chloride 105 mmol/L (96-108); Estimated Glomerular Filt Rate > 60; Glucose Random 101 mg/dL (60-115); Potassium 4.2 mmol/L (3.3-5.1); Sodium 138 mmol/L (135-145)
== END 2024-03-31 10:00 | disposition home or self-care (01) ==
LOC: HO.10HDL 09:59
PROVIDERS: Visit Provider Internal Medicine
DX: I10 Essential (primary) hypertension (principal); E87.6 Hypokalemia
CPT/HCPCS: 36415; 80048

== ENCOUNTER 2024-06-23 09:36 | Outpatient (REF) | payer MEDICARE, SELFPAY ==
--- OUTSIDE RECORDS SUMMARY | 2024-06-23 10:01 | XMS_ITS | Encounter Summary ---
Author Organization [facility] Address [address] [place] [id number] Care Team Providers Care Cartridge Gauger Name Role Phone Ankit Cain MD Primary Care Provider [phone] Reason for Referral * Imaging (Routine) - Authorized Specialty Diagnoses / Procedures Referred By Contac t Referred To Contact Radiology Diagnoses Small cell lung cancer, left upper lobe (CMS/HCC) Procedures CT Chest wo Contrast Amparo West MD [address] [address] [facility] [address] [place] [address] Referral ID Status Reason Start Date Expiration Date V isits Requested Visits Authorized [id number] Authorized 05/29/2024 05/29/2025 1 1 Reason for Visit * Reason Comments Follow-up Chest CT Encounter Details Date Type Department Care Team (Late st Contact Info) Description 05/29/2024 9:45 AM EST Office Visit Thoracic Surgery - [place] [address] [phone] Amparo West MD [address] [address] Small cell lung cancer, left upper lobe (CMS/HCC) (Primary Dx) Social History Tobacco Use Types Packs/Day Years Used Date Smoking Tobacco: Former Cigarettes 1 41 0 05/21/1958 - 05/21/1999 Tobacco Cessation:Counseling Given: Not Answered Alcohol Use Standard Drinks/Week Comments Never 0 (1 standard drink = 0.6 oz pur e alcohol) Sex and Gender Information Value Date Recorded Sex Assigned at Female 05/19/2024 9:35 AM EST Gender Identity Female 05/19/2024 9:35 AM EST Sexual Orientation Not on file Job Start Date Occupation Industry Not on file Not on file Not on file documented as of this encounter Last Filed Vital Signs Vital Sign Reading Time Taken Comments Blood Pressure 160/76 05/29/2024 9:42 AM EST Pulse 59 05/29/2024 9:42 AM EST Temperature 36.5 ??C (97.7 ??F) 05/29/2024 9:42 AM ES T Respiratory Rate 18 05/29/2024 9:42 AM EST Oxygen Saturation 95% 05/29/2024 9:42 AM EST Inhaled Oxygen Concentration - - Weight 76.9 kg (169 lb 8 oz) 05/29/2024 9:42 AM EST Height 152.4 cm (5') 05/29/2024 9:42 AM EST Body Mass Index 33.1 05/29/2024 9:42 AM EST documented in this encounter Ordered Prescriptions Prescription Sig Dispensed Refills Start Date End Da te traMADoL (ULTRAM) 50 mg tablet Take 1 tablet (50 mg total) by mouth every 6 (six) hours if needed for severe pain. Max Daily Amount: 200 mg 30 tablet 05/29/2024 documented in this encounter Progress Notes * Amparo West MD - 05/29/2024 10:30 AM ESTAssociated Problem(s): Small cell lung cancer, left upper lobe (CMS/HCC) 79-year-old woman who had a da Ricardo left upper lobectomy on 09/30/2019 for what turned out to be anisolated small cell lung cancer. She has done well since that time and is followed by medical oncology at [facility] and with serial CT scans through me at [facility] since that time. Her most recent CT scan was done on 05/19/2024 which shows no evidence of recurrence or new disease. I discussed this with her in detail as described in the HPI. She does have some residual sounds like neurogenic type pain for which she was given tramadol which I refilled today. Plan will be for a 1 year follow-up CT scan of the chest and a visit in the [facility] office after that. She would like to have her CT scans doneat [facility] now. All questions were answered. * Amparo West MD - 05/29/2024 9:45 AM EST FOLLOWUP IMAGING NOTE Patient name: Ashlyn Stone : 1945 Date of Visit: 05/29/2024 PCP: Ankit Cain MD Chief Complaint Patient presents with Follow-up Chest CT HPI Ms. Stone is a 79 y.o. female who presents for a follow-up visit after their recent CT chest. 79-year-old woman who underwent a da Ricardo left upper lobectomy on 09/30/2019 for what turned out yenny an isolated stage I A2 small cell carcinoma. She has been followed with serial CT scans since that time at [facility] which I reviewed. Her most recent CT scan was done on 05/19/2024 compared with previous scans from [facility] which shows no evidence of recurrence or new disease. She reports her breathing is stable and only complaint is occasional pain in the left lower chest likely related to nerve injury from the surgery. She denies any unintentional weight loss decreased appetite fevers chills or soaking sweats. She denies shortness of breath that is new, cough, or hemoptysis. She denies any neurologic symptoms although she did have vertigo at 1 point where we got an MRI of the brain showing no evidence of metastatic disease. She also tells me she tore her meniscus in her left knee and is wearing a brace now. Past Medical History: Diagnosis Date 1st degree AV block 09/2020 DX:1st degree AV block Anxiety DX:Anxiety Benign paroxysmal positional vertigo DX:Benign paroxysmal positional vertigo Cataract DX:Cataract COPD (chronic obstructive pulmonary disease) (CMS/HCC) DX:COPD (chronic obstructive pulmonary disease) (HCC) Dyslipidemia DX:Dyslipidemia Former smoker, stopped smoking in distant past DX:Former smoker, stopped smoking in distant past GERD (gastroesophageal reflux disease) 05/22/2015 DX:GERD (gastroesophageal reflux disease) History of stomach ulcers DX:History of stomach ulcers History of throat problem DX:History of throat problem HTN (hypertension) DX:HTN (hypertension) Insomnia 05/22/2015 DX:Insomnia Migraine headache DX:Migraine headache Mixed hyperlipidemia DX:Mixed hyperlipidemia Patellar fracture DX:Patellar fracture PONV (postoperative nausea and vomiting) DX:PONV (postoperative nausea and vomiting) Poor venous access DX:Poor venous access Sinus bradycardia on ECG 09/2020 DX:Sinus bradycardia on ECG Small cell lung cancer, left upper lobe (CMS/HCC) DX:Small cell lung cancer, left upper lobe (HCC) Thyroid disease DX:Thyroid disease Past Surgical History: Procedure Laterality Date APPENDECTOMY 1982 PROCEDURE: MS APPENDECTOMY CHOLECYSTECTOMY 1982 PROCEDURE: HISTORICAL CHOLECYSTECTOMY KNEE SURGERY PROCEDURE: HISTORICAL KNEE SURGERY LUMBAR LAMINECTOMY PROCEDURE: HISTORICAL LUMB LAMINECTOMY OTHER SURGICAL HISTORY Left 09/30/2019 PROCEDURE: MS THORACOSCOPY W/LOBECTOMY SINGLE LOBE; COMMENT: OTF Lobectomy - [facility] OTHER SURGICAL HISTORY 09/17/2019 PROCEDURE: PULMONOLOGY BRONCHOSCOPY Allergies Allergen Reactions Amoxicillin Other Fever blisters on lips Codeine Nausea And Vomiting Meperidine Nausea And Vomiting Morphine Nausea And Vomiting Penicillin G Rash Current Outpatient Medications on File Prior to Visit Medication Sig Dispense Refill albuterol HFA (PROAIR HFA ; PROVENTIL HFA ; VENTOLIN HFA) 90 mcg/actuation inhaler Inhale 2 Puffs into the lungs every 4 hours as needed for Cough or Wheezing. ALPRAZolam (XANAX) 0.5 mg tablet Take 1 Tab by mouth daily as needed for Anxiety. atorvastatin (LIPITOR) 20 mg tablet Take 20 mg by mouth daily. fluticasone propionate (FLONASE) 50 mcg/actuation nasal spray 2 sprays each nostril twice daily x 1week then once daily as needed. furosemide (LASIX) 40 mg tablet Take 1 tablet (40 mg total) by mouth 1 (one) time each day. meclizine (ANTIVERT) 12.5 mg tablet Take 1 Tab by mouth daily. Or as needed for vertigo omeprazole 20 mg tablet,disintegrat, delay rel Take 1 tablet by mouth 1 (one) time each day. No current facility-administered medications on file prior to visit. Social History Tobacco Use Smoking status: Former Current packs/day: 0.00 Average packs/day: 1 pack/day for 41.0 years (41.0 ttl pk-yrs) Types: Cigarettes Start date: 05/21/1958 Quit date: 05/21/1999 Years since quittin.0 Substance Use Topics Alcohol use: Never Drug use: Never Social History Social History Narrative Retired, . Review of Systems General - Negative for: weight loss/gain, fatigue, fever, chills, weakness, difficulty sleeping Head - Negative for: headache, trauma Eyes - Negative for: acute vision change, blurred vision, double vision, eye pain, conjunctival erythema, eyelid pain/swelling/erythema Ears - Negative for: acute change in hearing, tinnitus, ear pain, ear drainage Nose - Negative for: nasal discharge, nosebleed, itching, sinus pain Mouth/Throat - Negative for: sore throat, swollen throat, dry mouth, hoarseness, dysphagia, odynophagia, oral lesions Neck - Negative for: pain, stiffness, swelling, mass/lumps, swollen glands Cardiovascular - Negative for: chest pain/pressure, exertional chest pain, palpitations, lightheadedness, dizziness, orthopnea, extremity edema Respiratory -as above Gastrointestinal - Negative for: abdominal pain, abdominal distention, bloating, nausea, vomiting, early satiety, diarrhea, constipation, BRBPR, melena, poor appetite Genitourinary - Negative for: dysuria, hematura, urinary frequency, urinary urgency, incontinence Musculoskeletal - Negative for: muscle or joint pain, stiffness, back pain, joint swelling or erythema Neurologic - Negative for: dizziness, seizures, weakness, numbness, tingling, tremor, dysarthria, facial droop Hematologic - Negative for: easy bruising, easy bleeding, ecchymosis, petechiae Endocrine - Negative for: polyuriua, polydipsia, heat or cold intolerance Lymphatic - Negative for: swollen nodes, unexplained lumps/bumps in neck/axillae/groin Skin - Negative for: rashes, lumps, itching, dryness, color change, hair/nail changes Psychiatric - Negative for: depression, anxiety, nervousness, stress, memory change, SI/HI Physical Exam Vitals: 05/29/24 0942 BP: (!) 160/76 BP Location: Right arm Patient Position: Sitting BP Cuff Size: Adult long Pulse: 59 Resp: 18 Temp: 36.5 ??C (97.7 ??F) TempSrc: Temporal SpO2: 95% Weight: 76.9 kg (169 lb 8 oz) Height: 1.524 m (60 ) General: Patient is sitting comfortably in no acute distress, well developed, well nourished Head: Normocephalic, atraumatic, symmetric Eyes: Sclera anicteric, eyelids without edema or erythema, +EOMS intact ENT: Oral mucosa and tongue are moist without lesions or exudates Neck: Soft, supple, symmetric, trachea midline, no crepitus, no mass visualized or palpated Cardiovascular: Regular rate and rhythm, no murmur/rubs/gallops, BUE and BLE without edema, no calftenderness bilaterally Respiratory: Lungs CTA B, breathing nonlabored, speaking in full sentences, on room air. No use of accessory muscles. No obvious chest wall abnormality or deformity Gastrointestinal: Soft, non-tender, non-distended, +normoactive bowel sounds. Lymphatic: no cervical, supraclavicular, infraclavicular, or other lymphadenopathy noted Neurological: Alert and oriented x 3, neurologic exam is grossly normal Psychiatric: No agitation, appropriate affect Radiology Reviewed and interpreted by me directly as above I personally viewed the following imaging studies, in addition to reviewing the dictated report from the reading radiologist Assessment/Plan Problem List Items Addressed This Visit Respiratory Small cell lung cancer, left upper lobe (CMS/HCC) - Primary 79-year-old woman who had a da Ricardo left upper lobectomy on 09/30/2019 for what turned out to be anisolated small cell lung cancer. She has done well since that time and is followed by medical oncology at [facility] and with serial CT scans through me at [facility] since that time. Her most recent CT scan was done on 05/19/2024 which shows no evidence of recurrence or new disease. I discussed this with her in detail as described in the HPI. She does have some residual sounds like neurogenic type pain for which she was given tramadol which I refilled today. Plan will be for a 1 year follow-up CT scan of the chest and a visit in the [facility] office after that. She would like to have her CT scans doneat [facility] now. All questions were answered. Relevant Orders CT Chest wo Contrast Total time spent on date of this encounter: 33 minutes Reviewing patient's chart, Independently reviewing current/past imaging, Visit with the patient, Counseling and educating patient/family on diagnosis, Discussion of ongoing management, and Documenting clinical information in the patient's medical record Amparo West MD on 05/29/2024 at 10:32 AM EST CC: Ankit Cain MD Francis M Croke, MD documented in this encounter Plan of Treatment Scheduled Orders Name Type Priority Associated Diagnoses Orde r Schedule CT Chest wo Contrast Imaging Routine Small cell lung cancer, left upper lobe (CMS/HCC) Expected: 05/29/2025, Expires: 05/29/2025 documented as of this encounter Visit Diagnoses Diagnosis Small cell lung cancer, left upper lobe (CMS/HCC)- Primary documented in this encounter Care Teams Cartridge Gauger Relationship Specialty Start Date End Date Ankit Cain MD [address] [place] [address] Dr Ashley MA PCP - General 05/02/23 documented as of this encounter
--- OUTSIDE RECORDS SUMMARY | 2024-06-23 10:01 | XMS_ITS | Clinical Summary ---
Author Organization [facility] Address [address] [place] [phone] Phone Care Team Providers Care Retail Experience Specialist Name Role Phone Denise Bell MD Primary Care Provider [phone] Allergies Active Allergy Reactions Criticality Noted Date Comments Amoxicillin Other 05/04/2015 Fever blisters on lips Codeine Nausea And Vomiting 05/04/2015 Meperidine Nausea And Vomiting 05/04/2015 Morphine Nausea And Vomiting 05/04/2015 Penicillin G Rash 05/04/2015 Medications Medication Sig Dispensed Refills Start Date End Date Status albuterol HFA (PROAIR HFA ; PROVENTIL HFA ; VENTOLIN HFA) 90 mcg/actuation inhaler Inhale 2 Puffs into the lungs every 4 hours as needed for Cough or Wheezing. 07/14/2015 Active ALPRAZolam (XANAX) 0.5 mg tablet Take 1 Tab by mouth daily as needed for Anxiety. 12/24/2015 Active atorvastatin (LIPITOR) 20 mg tablet Take 20 mg by mouth daily. Active fluticasone propionate (FLONASE) 50 mcg/actuation nasal spray 2 sprays each nostril twice daily x 1 week then once daily as needed. 05/04/2015 Active furosemide (LASIX) 40 mg tablet Take 1 tablet (40 mg total) by mouth 1 (one) time each day. Active meclizine (ANTIVERT) 12.5 mg tablet Take 1 Tab by mouth daily. Or as needed for vertigo 07/15/2015 Active omeprazole 20 mg tablet,disintegrat, delay rel Take 1 tablet by mouth 1 (one) time each day. Active traMADoL (ULTRAM) 50 mg tablet Take 1 tablet (50 mg total) by mouth every 6 (six) hours if needed for severe pain. 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 She has done well since that time and is followed by medical oncology at [facility] and with serial CT scans through me at [facility] since that time. Her most recent CT scan was done on 04/17/2023 which shows no evidence of recurrence or new disease. I discussed this with her in detail as described in the HPI. She does have some residual sounds like neurogenic type pain for which she was given gabapentin. Plan will be for a 1 year follow-up CT scan of the chest and a visit in the [facility] office after that. She would like to have her CT scans done at [facility] now. All questions were answered. 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 She has done well since that time and is followed by medical oncology at [facility] and with serial CT scans through me at [facility] since that time. Her most recent CT [...] the chest and a visit in the [facility] office after that. She would like to have her CT scans done at [facility] now. All questions were answered. Insomnia 05/22/2015 GERD (gastroesophageal reflux disease) 6 Encounters Date Type Department Care Team Description 05/29/2024 9:45 AM EST Office Visit Thoracic Surgery - [place] [address] [facility] [address] [place] [address] Amparo West MD Small cell lung cancer, left upper lobe (CMS/HCC) (Primary Dx) 05/19/2024 9:30 AM EST - 05/19/2024 11:59 PM EST Hospital Encounter [facility] CT Scan [address] [place] [address] Personal history of other malignant neoplasm of bronchus and lung Discharge Disposition: Home or Self Care from Last 3 Months Surgical History Surgery Date Site/Laterality Comments KNEE SURGERY PROCEDURE: HISTORICAL KNEE SURGERY APPENDECTOMY 1982 PROCEDURE: [place] APPENDECTOMY CHOLECYSTECTOMY 1982 PROCEDURE: HISTORICAL CHOLECYSTECTOMY LUMBAR LAMINECTOMY PROCEDURE: HISTORICAL LUMB LAMINECTOMY OTHER SURGICAL HISTORY 09/30/2019 Left PROCEDURE: [place] THORACOSCOPY W/LOBECTOMY SINGLE LOBE; [place]: [place] [facility] [place] 09/17[place]2019 PROCEDURE: PULMONOLOGY BRONCHOSCOPY Medical History Medical History Date Comments Anxiety DX:Anxiety HTN (hypertension) DX:HTN (hyper tension) Dyslipidemia DX:Dyslipidemia Patellar fracture DX:Patellar fr acture GERD (gastroesophageal reflu x disease) 05/22/2015 DX:GERD (gastroesophageal re flux disease) Insomnia 05/22/2015 DX:Insomnia 1st degree AV block 09/2020 DX:1st degre e AV block Benign paroxysmal positional vertigo DX:Benign paroxysmal positional vertigo Cataract DX:Cataract COPD (chronic obstructive pu lmonary disease) (CMS/HCC) DX:COPD (chronic obstructive pulmonary disease) (HCC) Former smoker, stopped smoki ng in distant past DX:Former smoker, stopped sm oking in distant past History of throat problem DX:His tory of throat problem Mixed hyperlipidemia DX:Mixed hy perlipidemia Migraine headache DX:Migraine he adache PONV (postoperative nausea a nd vomiting) DX:PONV (postoperative nause a and vomiting) Poor venous access DX:Poor venou s access Small cell lung cancer, left upper lobe (CMS/HCC) DX:Small cell lung cancer, l eft upper lobe (HCC) Sinus bradycardia on ECG 09/2020 DX:Sinu s bradycardia on ECG History of stomach ulcers DX:His tory of stomach ulcers Thyroid disease DX:Thyroid disea se Family History Medical History Relation Name Comments Throat cancer Father Breast cancer Mother Breast cancer Sister 1 Other: lupus Sister 1 breast cancer Relation Name Status Comments Father Mother Sister 1 Sister 2 Social History Tobacco Use Types Packs/Day Years [...] file Not on file Not on file Obstetrics History Last Filed Vital Signs Vital Sign Reading [...] Mass Index 33.1 05/29/2024 9:42 AM EST Plan of Treatment Health Maintenance Due Date Last Done Comments COVID-19 Vaccine (#1) 1950 Pneumococcal Vaccine: 65+ Ye ars (1 of 2 - PCV) 1951 DTaP,Tdap,and Td Vaccines (1 - Tdap) 1964 Zoster Vaccines (1 of 2) 1964 RSV Immunization Patients 60 + Years Old (1 - 1-dose 75+ series) 2020 Cholesterol Screening (Lipid Panel) 04/23/2022 Depression Screening 04/23/2022 Falls Risk Assessment 04/23/2022 Hepatitis C Screening 04/23/2022 Medicare Annual Wellness Visit 04/23/2022 Social Influencers of Health Screening 04/23/2022 Hypertension/CHF/CAD Annual BMP Blood Test 05/03/2022 08/25/2015 Influenza Vaccine (#1) 2024 Osteoporosis Screening (Bone Density Screening) 07/27/2029 07/28/2019 HIB Vaccines Aged Out No longer eligi ble based on patient's age to complete this topic HPV Vaccines Aged Out No longer eligi ble based on patient's age to complete this topic Hepatitis A Vaccines Aged Out No long er eligible based on patient's age to complete this topic Hepatitis B Vaccines Aged Out No long er eligible based on patient's age to complete this topic IPV Vaccines Aged Out No longer eligi ble based on patient's age to complete this topic MMR Vaccines Aged Out No longer eligi ble based on patient's age to complete this topic Meningococcal ACWY Vaccine Aged Out N o longer eligible based on patient's age to complete this topic RSV Immunization Patients Un lorenzo 20 months Aged Out No longer eligible b ased on patient's age to complete this topic Varicella Vaccines Aged Out No longer eligible based on patient's age to complete this topic Procedures Procedure Name Priority Date/Time Associated Diagnosis Comments CT CHEST WO CONTRAST Routine 05/19/2024 9:51 AM EST Personal history of other malignant neoplasm of bronchus and lung [facility] DEXA AXIAL SKELETON Routine 07/28/2019 9:50 AM EDT Other specified disorders of bone density and structure, other site ANNUAL BMP BLOOD TEST Routine 08/25/2015 from Last 3 Months or Most Recently Relevant to Health Maintenance Results * CT Chest wo Contrast (05/19/2024 9:51 AM EST) Anatomical Region Laterality Modality Body Computed Tomogra phy 05/27/2024 4:00 PM EST Impressions 05/27/2024 4:10 PM EST Similar emphysematous and postoperative changes. Similar 6 mm nodule in the right middle lobe. No new or enlarging pulmonary nodules. No thoracic lymphadenopathy. -------- FINAL REPORT -------- Dictated By: Lizbeth Dupree Dictated Date: 05/27/2024 16:00 ET Assigned Physician: Lizbeth Dupree Reviewed and Electronically Signed By: Lizbeth Dupree Signed Date: 05/27/2024 16:10 ET Workstation ID: [id number] Transcribed By: Self Edit Transcribed Date: 05/27/2024 16:00 ET Narrative 05/27/2024 4:10 PM EST INDICATION: Lung carcinoma TECHNIQUE: CT scan of the chest obtained without contrast. Scanner: [employer] revolution frontier 128 slice VCT Dose reduction technique: ASIR (Adaptive statistical iterative reconstruction) and/or AEC (automated exposure control) Dose: total exam DLP 571 mGY per cm COMPARISON: Compared to multiple prior studies most recent from from outside facility dated April 13, 2023. PET/CT from September 09, 2019 reviewed. FINDINGS: Lung sylvester demonstrate emphysematous changes without infiltrates or effusions. Status post left upper lobectomy. 6 mm nodule is unchanged within the right middle lobe No thoracic lymphadenopathy. Trachea and esophagus are within normal limits. Heart normal in size and shape without pericardial effusion. Unopacified mediastinal vascular structures are grossly normal in course and caliber for the patient's age. Well-positioned right chest wall port with tip in the distal SVC. 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 Visualized portion upper abdomen are unremarkable. Procedure Note Lizbeth Dupree MD - 05/27/2024 INDICATION: Lung carcinoma TECHNIQUE: CT scan of the chest obtained without contrast. Scanner: Cortex revolution frontier 128 slice VCT Dose reduction technique: ASIR (Adaptive statistical iterativereconstruction) and/or AEC (automated exposure control) Dose: total exam DLP 571 mGY per cm COMPARISON: [facility] multiple [facility]. PET/CT from September 09, 2019reviewed. FINDINGS: Lung sylvester demonstrate emphysematous changes without infiltrates oreffusions. Status post left upper lobectomy. 6 mm nodule is unchanged within the right middle lobe No thoracic lymphadenopathy. Trachea and esophagus are within normallimits. Heart normal in size and shape without pericardial effusion. Unopacified mediastinal vascular structures are grossly normal in courseand caliber for the patient's age. Well-positioned right chest wall portwith tip in the distal SVC. Bony structures of the thorax demonstrate scoliotic changes withdevelopmental anomaly within the lower thoracic spine. Visualized portion upper abdomen are unremarkable. IMPRESSION: Similar emphysematous and postoperative changes. Similar 6 mm nodule in the right middle lobe. No new or enlarging pulmonary nodules. No thoracic lymphadenopathy. -------- FINAL REPORT -------- Dictated By: Lizbeth Dupree Dictated Date: 05/27/2024 16:00 ET Assigned Physician: Lizbeth Dupree Reviewed and Electronically Signed By: Lizbeth Dupree Signed Date: 05/27/2024 16:10 ET Workstation ID: [id number] Transcribed By: Self Edit Transcribed Date: 05/27/2024 16:00 ET Amparo West MD IMG CT PROCEDURES * EMMETT DEXA AXIAL SKELETON (07/28/2019 9:50 AM EDT) Anatomical Region Laterality Modality Mammography 07/28/2019 7:46 AM EDT Narrative 07/28/2019 9:[address] [facility] Diagnostic Imaging Department [address] [place] [address] Patient: ??ZAINAB ASKEW ?/Age/Sex: 1945 - 74 - F Unit#: ??[id number] ? Location/Status: ??SPDIMAM/REG CLI ? Mnemonic/Ordering Site: ??[facility]AMDEXAAX/SPMAM Ordering Physician: ??DENISE BELL MD Emmett Dexa Axial Skeleton - 07/28/19829 HISTORY: ??The patient is a 74-year-old postmenopausal female with clinical concern for metabolic bone disease. FINDINGS: ??Dual energy x-ray absorptiometry of the lumbar spine and femurs is performed. The mean bone mineral density at L2-3 is 1.407 gm/cm2 which is 117% of that of young normals and 139% of that of age matched controls. This yields a T-score of 1.7 and a Z-score of 3.3 and there is therefore no evidence of osteoporosis or osteopenia here. The mean bone mineral density of the femurs bilaterally is 0.820 gm/cm2 which is 81% of that of young normals and 101% of that of age matched controls. ??This yields a T-score of -1.5 and a Z-score of 0.1 which is diagnostic of osteopenia. The T-score of the right femoral neck is -1.8 and that of the left femoral neck is -2.0 which is diagnostic of osteopenia. IMPRESSION: 1. Osteopenia. ??There has been an increase of 7.3% in bone mineral density in the lumbar spine since the prior examination of 04/09/2012. ??There has been a decrease of 0.4% in bone mineral density in the right femur and a decrease of 10.8% in bone mineral density in the left femur. 2. FRAX analysis yields a 10-year probability of major osteoporotic fracture of 17.6% and a 10-year probability of hip fracture of 3.6%. Code 28444 Dictating Physician: ??HERIBERTO DALEY MD Electronically Signed by: ??HERIBERTO DALEY MD Dic Date/Time: ??07/28/1949 Sign date/Time: ??07/28/19 0950 Procedure Note Heriberto Daley - 05/09/2022 [facility] Diagnostic Imaging Department [address] [place] [address] Patient: ZAINAB ASKEW./Age/Sex: 1945 - 74 - F Unit#: [id number] Location/Status: SPDIMAM/REG CLI [facility] Ordering Physician: DENISE EBLL MD Emmett Dexa Axial Skeleton - 07/28/19829 HISTORY: The patient is a 74-year-old postmenopausal female withclinical concern for metabolic bone disease. FINDINGS: Dual energy x-ray absorptiometry of the lumbar spine and femursis performed. The mean bone mineral density at L2-3 is 1.407 gm/cm2 which is117% of that of young normals and 139% of that of age matched controls. Thisyields a T-score of 1.7 and a Z-score of 3.3 and there is therefore no evidenceof osteoporosis or osteopenia here. The mean bone mineral density of the femurs bilaterally is 0.820 gm/sg3pnkuq is 81% of that of young normals and 101% of that of age matched controls.This yields a T-score of -1.5 and a Z-score of 0.1 which is diagnostic ofosteopenia. The T-score of the right femoral neck is -1.8 and that of the left femoralneck is -2.0 which is diagnostic of osteopenia. IMPRESSION: 1. Osteopenia. There has been an increase of 7.3% in bone mineral densityin the lumbar spine since the prior examination of 04/09/2012. There hasbeen a decrease of 0.4% in bone mineral density in the right femur and a decreaseof 10.8% in bone mineral density in the left femur. 2. FRAX analysis yields a 10-year probability of major osteoporoticfracture of 17.6% and a 10-year probability of hip fracture of 3.6%. Code 25485 Dictating Physician: HERIBERTO DALEY MD Electronically Signed by: HERIBERTO DALEY MD Dic Date/Time: 07/28/1949 Sign date/Time: 03/09/20 0950 Denise Bell MD IMG BI PROCEDURES * Annual BMP Blood Test (08/25/2015) Annual BMP Blood Test abstracted Historical Provider MD CRUZITO Coyle from Last 3 Months or Most Recently Relevant to Health Maintenance Care Teams Retail Experience Specialist Relationship Specialty Start Date End Date Denise Bell MD [address] [place] [address] Dr Ashley MA PCP - General 05/02/23
[2024-06-23 10:25] LABS: Appearance Urine Clear; Color Urine Yellow; Glucose Urine UA Negative (Negative); Leukocyte Esterase Urine Moderate (2+) (Negative); Nitrite Urine Negative (Negative); Specific Gravity - Urine 1.015 (1.005-1.025); UMIC TRIGGER UACC YES; Urine Blood Negative (Negative); Urine Ketones Negative (Negative); Urine Protein Negative (Neg-Trace)
[2024-06-23 10:29] LABS: Bacteria Urine None Seen (None Seen); Hyaline Casts Urine 0-2 /LPF (0-2); RBC Urine 0-2 /HPF (0-2); Squamous Epithelial Cell Urine 0-2 /HPF (0-2); UACC Culture Trigger YES; WBC Urine 21-50 /HPF (0-5)
== END 2024-06-23 09:37 | disposition home or self-care (01) ==
LOC: HO.10HDL 09:36
PROVIDERS: Visit Provider Internal Medicine
DX: I10 Essential (primary) hypertension (principal); J44.9 Chronic obstructive pulmonary disease, unspecified; R30.0 Dysuria
CPT/HCPCS: 81001; 87086

== ENCOUNTER 2024-06-27 07:52 | Outpatient (REF) | payer MEDICARE, SELFPAY ==
--- OUTSIDE RECORDS SUMMARY | 2024-06-27 07:55 | XMS_ITS | Clinical Summary ---
Author Organization [facility] Address [address] [place] [phone] Phone Care Team Providers Care Manager Trainee Name Role Phone Denise Bell MD Primary Care Provider [phone] Allergies Active Allergy Reactions Criticality Noted Date [...] and is followed by medical oncology at [facility] and with serial CT scans through me at [facility] since that time. Her most recent CT [...] the chest and a visit in the [facility] office after that. She would like to have her CT scans done at [facility] now. All questions were answered. 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 She has done well since that time and is followed by medical oncology at [facility] and with serial CT scans through me at [facility] since that time. Her most recent CT [...] the chest and a visit in the [facility] office after that. She would like to have her CT scans done at [facility] now. All questions were answered. Insomnia 05/22/2015 GERD (gastroesophageal reflux disease) 6 Encounters Date Type Department Care Team Description 05/29/2024 9:45 AM EST Office Visit Thoracic Surgery - [place] [address] [facility] [address] [place] [address] Amparo West MD Small cell lung cancer, left upper lobe (CMS/HCC) (Primary Dx) 05/19/2024 9:30 AM EST - 05/19/2024 11:59 PM EST Hospital Encounter [facility] CT Scan [address] [place] [address] Personal history of other malignant neoplasm of bronchus and lung Discharge Disposition: Home or Self Care from Last 3 Months Surgical History Surgery Date Site/Laterality Comments KNEE SURGERY PROCEDURE: HISTORICAL KNEE SURGERY APPENDECTOMY 1982 PROCEDURE: [place] APPENDECTOMY CHOLECYSTECTOMY 1982 PROCEDURE: HISTORICAL CHOLECYSTECTOMY LUMBAR LAMINECTOMY PROCEDURE: HISTORICAL LUMB LAMINECTOMY OTHER SURGICAL HISTORY 09/30/2019 Left PROCEDURE: [place] THORACOSCOPY W/LOBECTOMY SINGLE LOBE; COM[place]: [place] [facility] [place]ICAL H[place] 09/17/2019 PROCEDURE: PULMONOLOGY BRONCHOSCOPY [...] other malignant neoplasm of bronchus and lung [facility] D[facility] Routine 07/28/2019 9:50 [...] Signed Date: 05/27/2024 16:10 ET Workstation ID: [id number] Transcribed By: Self Edit Transcribed Date: 05/27/2024 16:00 ET Narrative 05/27/2024 4:10 PM EST INDICATION: Lung carcinoma TECHNIQUE: CT scan of the chest obtained without contrast. Scanner: [employer] revolution frontier 128 slice VCT Dose reduction [...] of the chest obtained without contrast. Scanner: [employer] revolution frontier 128 slice VCT Dose reduction technique: ASIR (Adaptive statistical iterativereconstruction) and/or AEC (automated exposure control) Dose: total exam DLP 571 mGY per cm COMPARISON: Compared [facility] multiple [facility]. PET/CT from [...] Signed Date: 05/27/2024 16:10 ET Workstation ID: [id number] Transcribed By: Self Edit Transcribed Date: 05/27/2024 16:00 ET Amparo West MD IMG CT PROCEDURES * EMMETT DEXA AXIAL SKELETON (07/28/2019 9:50 AM EDT) Anatomical Region Laterality Modality Mammography 07/28/2019 7:46 AM EDT Narrative 07/28/2019 9:50 AM EDT [facility] Diagnostic Imaging Department [address] [place] [address] Patient: ??ZAINAB ASKEW ?/Age/Sex: 1945 - 74 - F Unit#: ??[id number] ? Location/Status: ??SPDIMAM/REG CLI ? Mnemonic/Ordering Site: [...] probability of hip fracture of 3.6%. Code 89071 Dictating Physician: ??HERIBERTO DALEY MD Electronically Signed by: ??HERIBERTO DALEY MD Dic Date/Time: ??07/28/1949 Sign date/Time: ??07/28/19 0950 Procedure Note Heriberto Daley - 05/09/2022 [facility] Diagnostic Imaging Department [address] [place] [address] Patient: ZAINAB ASKEW./Age/Sex: 1945 - 74 - F Unit#: [id number] Location/Status: SPDIMAM/REG CLI [facility] Ordering Physician: DENISE BELL MD Emmett Dexa Axial Skeleton - [...] density of the femurs bilaterally is 0.820 gm/hc0uxndh is 81% of that of young normals [...] probability of hip fracture of 3.6%. Code 39986 Dictating Physician: HERIBERTO DALEY MD Electronically Signed by: HERIBERTO DALEY MD Dic Date/Time: 07/28/1949 Sign date/Time: 03/09/20 0950 Denise Bell MD IMG BI PROCEDURES * Annual BMP Blood Test (08/25/2015) Annual BMP Blood Test abstracted Historical Provider MD CRUZITO Coyle from Last 3 Months or Most Recently Relevant to Health Maintenance Care Teams Manager Trainee Relationship Specialty Start Date End Date Denise Bell MD [address] [place] [address] Dr Ashley [place] PCP - General 05/02/23
--- OUTSIDE RECORDS SUMMARY | 2024-06-27 07:55 | XMS_ITS | Encounter Summary ---
Author Organization [facility] Address [address] [place] [phone] Care Team Providers Care Lipcoat Sprayer Name Role Phone Ankit Cain MD Primary Care Provider [phone] Reason for Referral * Imaging (Routine) - Authorized Specialty Diagnoses / Procedures Referred By Contac t Referred To Contact Radiology Diagnoses Small cell lung cancer, left upper lobe (CMS/HCC) Procedures CT Chest wo Contrast Amparo West MD [address] [address] [facility] [address] [place] [address] Referral ID Status Reason Start Date Expiration Date V isits Requested Visits Authorized [id number] Authorized 05/29/2024 05/29/2025 1 1 Reason for Visit * Reason Comments Follow-up Chest CT Encounter Details Date Type Department Care Team (Late st Contact Info) Description 05/29/2024 9:45 AM EST Office Visit Thoracic Surgery - [place] [address] [phone] Amparo West MD [address] [address] Small cell lung cancer, left upper lobe [...] and is followed by medical oncology at [facility] and with serial CT scans through me at [facility] since that time. Her most recent CT [...] the chest and a visit in the [facility] office after that. She would like to have her CT scans doneat [facility] now. All questions were answered. * Amparo [...] serial CT scans since that time at [facility] which I reviewed. Her most recent CT scan was done on 05/19/2024 compared with previous scans from [facility] which shows no evidence of recurrence or [...] History: Procedure Laterality Date APPENDECTOMY 1982 PROCEDURE: [place] APPENDECTOMY CHOLECYSTECTOMY 1982 PROCEDURE: HISTORICAL CHOLECYSTECTOMY KNEE SURGERY PROCEDURE: HISTORICAL KNEE SURGERY LUMBAR LAMINECTOMY PROCEDURE: HISTORICAL LUMB LAMINECTOMY OTHER SURGICAL HISTORY Left 09/30/2019 PROCEDURE: [place] THORACOSCOPY W/LOBECTOMY SINGLE LOBE; [place]: [place] [facility] [place]/17[place]2019 PROCEDURE: PULMONOLOGY BRONCHOSCOPY [...] and is followed by medical oncology at [facility] and with serial CT scans through me at [facility] since that time. Her most recent CT [...] the chest and a visit in the [facility] office after that. She would like to have her CT scans doneat [facility] now. All questions were answered. Relevant Orders [...] Primary documented in this encounter Care Teams Lipcoat Sprayer Relationship Specialty Start Date End Date Ankit Cain MD [address] [place] [address] Dr Ashley [place] PCP - General 05/02/23 documented as of this encounter
--- OUTSIDE RECORDS SUMMARY | 2024-06-27 07:55 | XMS_ITS | Patient Health Record ---
Author Organization [facility] Address [address] [place] [address] Care Team Providers Care Legal Support Assistant Name Role Phone Ankit Cain Primary Care Provider Unavailabl e Allergies Allergen (clinical drug ingredient) Drug/Non Drug Allergy documented on EMR Reaction Allergy Type Onset Date Status mushrooms (uncoded) Unknown Allergy Active Penicillin rash Drug Allergy Active Reason For Referral No Information Medications Medication SIG (Take, Route, Frequency, Duration) Notes Start Date End Date Status LORazepam Active Atenolol 25 MG 1 tablet Orally Once a day 1/2 tablet daily Active Plan Of Treatment No Information Insurance Providers Payer Name Payer Address Payer Phone Subscriber Number Group Number Insured Name Patient Relationship to Insured Coverage Start Date Coverage End Date Medicare of [place] [address] [place] [phone] [id number] Ashlyn Stone Self - patient is the insured [employer] [address] [place] [phone] [id number] Ashlyn Stone Self - patient is the insured Medical (General) History Medical History History ICD Code fatigue vertigo GERD rhinitis hypertension COPD lung cancer port on right side Surgical History Surgery Date(Month/Year) lung surgery left lobe removed (chemo) cholecystectomy 1982 appendectomy polyps removed in throat cataract surgery right knee surgery Hospitalization History Reason Date(Month/Year) right knee surgery appendectomy cholecystectomy [id number] lung surgery X 3days
[2024-06-27 08:06] LABS: MANUAL DIFF FLAG NO
[2024-06-27 08:22] LABS: Basophils Absolute Auto 0.1 X10*3/uL (0.0-0.2); Basophils Percent Auto 1.3 % (0-2); Eosinophils Absolute Auto 0.3 X10*3/uL (0.0-0.4); Eosinophils Percent Auto 2.7 % (0-4); Hematocrit 40.8 % (37.0-47.0); Hemoglobin 13.5 g/dl (12.0-16.0); Imm Gran Abs Auto 0.04 X10*3/uL (0.00-0.03); Imm Gran Pct Auto 0.4 % (0.0-0.4); Lymphocytes Absolute Auto 2.3 X10*3/uL (1.2-4.9); Lymphocytes Percent Auto 25.2 % (20-40); Mean Corpuscular HGB Conc 33.1 g/dl (31.0-35.0); Mean Corpuscular Hemoglobin 29.7 pg (27.0-33.0); Mean Corpuscular Volume 89.7 fL (80.0-98.0); Mean Platelet Volume 9.2 fL (9.4-12.3); Monocytes Absolute Auto 0.7 X10*3/uL (0.1-1.2); Monocytes Percent Auto 7.4 % (2-11); Neutrophils Absolute Auto 5.8 x10*3/uL (2.0-8.3); Platelet Count 324 X10*3/uL (160-400); Red Blood Count 4.55 X10*6/uL (4.20-5.50); Red Cell Distribution Width 13.1 % (11.0-16.0); White Blood Count 9.2 X10*3/uL (4.8-10.8)
[2024-06-27 09:03] LABS: Alanine Aminotransferase 24 U/L (0-31); Albumin Level 4.6 g/dL (3.5-5.0); Alkaline Phosphatase 79 U/L (39-117); Anion Gap 12 (12-20); Aspartate Amino Transferase 32 U/L (5-31); Bilirubin Total 0.4 mg/dL (0.0-1.0); Blood Urea Nitrogen 10 mg/dL (9-16); Calcium 9.8 mg/dL (8.4-10.2); Carbon Dioxide 25 mmol/L (22-29); Chloride 104 mmol/L (96-108); Cholesterol 265 mg/dL (<200); Estimated Glomerular Filt Rate > 60; Glucose Fasting 108 mg/dL (60-99); HDL Cholesterol 43 mg/dL (>40); LDL Cholesterol Calculated 157 mg/dL (<100); Potassium 3.9 mmol/L (3.3-5.1); Sodium 137 mmol/L (135-145); Total Protein 8.7 g/dL (6.5-8.0); Triglycerides 328 mg/dL (<150)
[2024-06-27 09:22] LABS: Vitamin B12 252 pg/mL (200-900)
== END 2024-06-27 07:53 | disposition home or self-care (01) ==
LOC: HO.LAB 07:52
PROVIDERS: PCP Internal Medicine; Visit Provider Internal Medicine
DX: I10 Essential (primary) hypertension (principal); J44.9 Chronic obstructive pulmonary disease, unspecified; E78.00 Pure hypercholesterolemia, unspecified; R30.0 Dysuria
CPT/HCPCS: 36415; 80053; 80061; 82306; 82607; 85025

== ENCOUNTER 2024-07-15 12:21 | Outpatient (REF) | payer MEDICARE, SELFPAY ==
[2024-07-15 13:34] LABS: Free T4 (Free Thyroxine) 0.91 ng/dL (0.71-1.85)
--- OUTSIDE RECORDS SUMMARY | 2024-07-15 15:00 | XMS_ITS | Patient Health Record ---
Author Organization [facility] Address [address] [facility] [address] [place] [address] Care Team Providers Care 4 H Youth Development Specialist Name Role Phone Ankit Cain Primary [...] of [place] [address] [place] [phone] [id number] Ashlyn Stone Self - patient is the insured [employer] [address] [place] [address] [phone] [id number] Ashlyn Stone Self - patient is the insured Medical (General) History Medical History History ICD Code fatigue vertigo GERD rhinitis hypertension COPD lung cancer port on right side Surgical History Surgery Date(Month/Year) lung surgery left lobe removed (chemo) cholecystectomy 1982 appendectomy polyps removed in throat cataract surgery right knee surgery Hospitalization History Reason Date(Month/Year) right knee surgery appendectomy cholecystectomy [id number] lung surgery X 3days
--- OUTSIDE RECORDS SUMMARY | 2024-07-15 15:00 | XMS_ITS | Clinical Summary ---
Author Organization [facility] Address [address] [place] [address] Phone Care Team Providers Care Conservation Agent Name Role Phone Denise Bell MD Primary Care Provider Allergies Active Allergy Reactions Criticality Noted Date Comments Amoxicillin Other 05/04/2015 Fever blisters on lips Codeine Nausea And Vomiting 05/04/2015 Meperidine Nausea And Vomiting 05/04/2015 Morphine Nausea And Vomiting 05/04/2015 Penicillin G Rash 05/04/2015 Medications albuterol HFA (PROAIR HFA ; PROVENTIL HFA [...] for vertigo 07/15/2015 Active omeprazole 20 mg tablet,disinteg rat, delay rel Take 1 tablet by mouth [...] and is followed by medical oncology at [facility] and with serial CT scans through me at [facility] since that time. Her most recent CT [...] the chest and a visit in the [facility] office after that. She would like to have her CT scans done at [facility] now. All questions were answered. 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 She has done well since that time and is followed by medical oncology at [facility] and with serial CT scans through me at [facility] since that time. Her most recent CT [...] the chest and a visit in the [facility] office after that. She would like to have her CT scans done at [facility] now. All questions were answered. Insomnia 05/22/2015 GERD (gastroesophageal reflux disease) 6 Encounters Date Type Department Care Team Description 05/29/2024 9:45 AM EST Office Visit Thoracic Surgery - [place] [address] [place] [address] Amparo West MD Small cell lung cancer, left upper lobe (CMS/HCC) (Primary Dx) 05/19/2024 9:30 AM EST - 05/19/2024 11:59 PM EST Hospital Encounter [facility] CT Scan [address] [place] [address] Personal history of other malignant neoplasm of bronchus and lung Discharge Disposition: Home or Self Care from Last 3 Months Surgical History Surgery Date Site/Laterality Comments KNEE SURGERY PROCEDURE: HISTORICAL KNEE SURGERY APPENDECTOMY 1982 PROCEDURE: [place] APPENDECTOMY CHOLECYSTECTOMY 1982 PROCEDURE: HISTORICAL CHOLECYSTECTOMY LUMBAR LAMINECTOMY PROCEDURE: HISTORICAL LUMB LAMINECTOMY OTHER SURGICAL HISTORY 09/30/2019 Left PROCEDURE: [place] THORACOSCOPY W/LOBECTOMY SINGLE LOBE; COMMENT: OTF Lobectomy - [facility] OTHER SURGICAL HISTORY 09/17/2019 PROCEDURE: PULMONOLOGY BRONCHOSCOPY [...] disease) (CMS/HCC) DX:COPD (chronic obstructive pulmonary disease) ([facility]) Former smoker, stopped smoki ng in distant [...] drink = 0.6 oz pur e alcohol) Comments Unknown Sex and Gender Information Value Date Recorded Sex Assigned at Female 05/19/2024 9:35 AM EST Legal Sex Female 7:19 AM EST Gender Identity Female 05/19/2024 9:35 AM EST Sexual Orientation Not on file Obstetrics History Last Filed [...] Last Done Comments COVID-19 Vaccine (#1) 1950 DTaP,Tdap,and Td Vaccines (1 - Tdap) 1964 Pneumococcal Vaccine: 50+ Ye ars (1 of 2 - PCV) 1964 Zoster Vaccines (1 of 2) 1964 [...] patient's age to complete this topic Meningococcal B Vacine Aged Out No lo nger eligible based on patient's age to complete [...] other malignant neoplasm of bronchus and lung [facility] DEXA AXIAL SKELETON Routine 07/28/2019 9:50 AM [...] Signed Date: 05/27/2024 16:10 ET Workstation ID: [id number] Transcribed By: Self Edit Transcribed Date: 05/27/2024 16:00 ET Narrative 05/27/2024 4:10 PM EST INDICATION: Lung carcinoma TECHNIQUE: CT scan of the chest obtained without contrast. Scanner: SecurActive revolution frontier 128 slice VCT Dose reduction [...] of the chest obtained without contrast. Scanner: Secur[employer] revolution frontier 128 slice VCT Dose reduction technique: ASIR (Adaptive statistical iterativereconstruction) and/or AEC (automated exposure control) Dose: total exam DLP 571 mGY per cm COMPARISON: [facility]. PET/CT [...] Signed Date: 05/27/2024 16:10 ET Workstation ID: [id number] Transcribed By: Self Edit Transcribed Date: 05/27/2024 16:00 ET us Amparo West MD IMG CT PROCEDURES Final Result * [facility] DEXA AXIAL SKELETON (07/28/2019 9:50 AM EDT) Anatomical Region Laterality Modality Mammography 07/28/2019 7:46 AM EDT Narrative 07/28/2019 9:50 AM EDT [facility] Diagnostic Imaging Department [address] [place], [place] [id number] Patient: ??ZAINAB ASKEW ?/Age/Sex: 1945 - 74 - F Unit#: ??[id number] ? Location/Status: ??SPDIMAM/REG CLI ? Mnemonic/Ordering Site: [...] probability of hip fracture of 3.6%. Code 21793 Dictating Physician: ??HERIBERTO DALEY MD Electronically Signed by: ??HERIBERTO DALEY MD Dic Date/Time: ??07/28/1949 Sign date/Time: ??07/28/19 0950 Procedure Note Heriberto Daley - 05/09/2022 [facility] Diagnostic Imaging Department [address] [place] [address] Patient: ZAINAB ASKEW D.O.B./Age/Sex: 1945 74 - F Unit#: [id number] Location/Status: SPDIMAM/REG CLI [facility] Ordering Physician: DENISE BELL MD [facility] Dexa Axial Skeleton - 07/28/19829 HISTORY: The [...] density of the femurs bilaterally is 0.820 gm/zw8bcuhk is 81% of that of young normals [...] probability of hip fracture of 3.6%. Code 24292 Dictating Physician: HERIBERTO DALEY MD Electronically Signed by: HERIBERTO DALEY MD Dic Date/Time: 07/28/19 0949 Sign date/Time: 07/28/1950 Denise Bell MD IMG BI PROCEDURES Final Resul t * Annual BMP Blood Test (08/25/2015) Annual BMP Blood Test abstracted us Historical Provider HEALTH MAINTENANCE Final Result from Last 3 Months or Most Recently Relevant to Health Maintenance Insurance MEDICARE [facility] Care Teams Conservation Agent Relationship Specialty Start Date End Date Denise Bell MD [address] [place] [address] Dr Ashley [place] PCP - General 05/02/23
[2024-07-16 21:53] LABS: Prot Elec - Albumin 4.9 g/dL (3.8-4.8); Prot Elec - Alpha1 0.3 g/dL (0.2-0.3); Prot Elec - Alpha2 0.8 g/dL (0.5-0.9); Prot Elec - Beta 1 0.5 g/dL (0.4-0.6); Prot Elec - Beta 2 0.5 g/dL (0.2-0.5); Prot Elec - Gamma 1.4 g/dL (0.8-1.7); Prot Elec - Total Protein 8.5 g/dL (6.1-8.1)
== END 2024-07-15 12:22 | disposition home or self-care (01) ==
LOC: HO.10HDL 12:21
PROVIDERS: Family Medicine; Visit Provider Internal Medicine
DX: E03.9 Hypothyroidism, unspecified (principal); R79.89 Other specified abnormal findings of blood chemistry
CPT/HCPCS: 36415; 84165; 84439

== ENCOUNTER 2024-09-29 10:47 | Outpatient (AMB) | payer MEDICARE, SELFPAY ==
[2024-09-29 10:24] VITALS: BP 136/70; PULSE 56; TEMP 36.2; O2SAT 97; BMI 33.6
--- NOTE | 2024-09-29 10:24 | MHC.PC.OV ---
Vital Signs 09/29/24 10:24 Height 5 ft Weight 172 lb BMI 33.6 BP 136/70 Blood Pressure Location Lt brachial Position Sitting Pulse 56 Pulse Source Pulse Oximeter Temp 97.2 F Temp Source Axillary Pulse Oximetry (%) 97 Oxygen Delivery Method Room Air Intake Visit Reasons: Routine Waste Management Recycling Technician Required: No Accompanied by: Self / Same As Patient Allergies meperidine [From DEMEROL] Allergy (Mild, Verified 09/29/24 11:33) GI SYMPTOMS Penicillins [PCN] Allergy (Mild, Verified 09/29/24 11:33) RASH codeine [CODEINE] Adverse Reaction (Mild, Verified 09/29/24 11:33) GI UPSET morphine [MORPHINE] Adverse Reaction (Mild, Verified 09/29/24 11:33) GI UPSET Tobacco use date assessed: 09/29/24 Fall risk assessment: No Falls in past year Last assessed Fall Risk: 09/29/24 Dental Screening Dental Screen Date: 09/29/24 Did you have a dental visit in the last 12 months?: No Did you have a dental problem in the last 6 months where you did not have access to dental care?: No [facility] Medical History (Updated 09/29/24 @ 11:34 by Harvinder Mendoza MD) Major 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 Cataract Insomnia Poor venous access Port-A-Cath in place PONV (postoperative nausea and vomiting) GERD (gastroesophageal reflux disease) 1st degree AV block (~09/2020) Sinus bradycardia on ECG (~09/2020) Hypothyroidism Benign paroxysmal positional vertigo Former smoker, stopped smoking in distant past Small cell lung cancer, left upper lobe (~09/2019) COPD (chronic obstructive pulmonary disease) History of throat problem Migraine headache Anxiety Hyperlipemia HTN (hypertension) Surgical History History of lobectomy of lung (~09/30/19) History of bronchoscopy (~09/17/19) History of removal of cyst (~1988) History of cholecystectomy (~1982) History of appendectomy (~1982) Family History Mother Breast cancer Father Throat cancer Sister Breast cancer Lupus GI bleed Social History Household Members: Children and None Household Members Other:: lives with her son Housing: Apartment Alcohol intake: never Patient Tobacco Use Status: Former Tobacco user Tobacco use type: Cigarette Years Smoked: 25 e-Cigarette/Vaping Use: Former Use Second Hand Smoke Exposure: No service: No Current occupational status: retired 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 1. Little interest or pleasure in doing things: not at all 2. Feeling down, depressed, or hopeless: not at all 3. Trouble falling or staying asleep, or sleeping too much: not at all 4. Feeling tired or having little energy: not at all 5. Poor appetite or overeating: not at all 6. Feeling bad about yourself - or that you are a failure or have let yourself or your family down: not at all 7. Trouble concentrating on things, such as reading the newspaper or watching television: not at all 8. Moving or speaking so slowly that other people could have noticed. Or the opposite - being so fidgety or restless that you have been moving around a lot more than usual: not at all 9. Thoughts that you would be better off or of hurting yourself in some way: not at all Total score: 0 Source: Developed by Drs. Ronan Jordan, Leigh Torres, Yobani Del Rosario and colleagues, with an educational dmitri from [email or web address]. Thrive Questionnaire Date Thrive assessed: 09/29/24 I am a: Patient Within the past 12 months, did the food you bought not last and you didn't have the money to get more?: Never true Within the past 12 months, did you worry whether your food would run out before you got money to buy more?: Never true Do you have trouble paying for medicines?: No Do you have trouble getting transportation to medical appointments?: No Do you have trouble paying your heating and electricity bill?: No Do you have trouble taking care of your child, family member or friend?: No Do you have trouble with day-to-day activities such as bathing, preparing meals, shopping, managing finances, etc.?: No Are you currently unemployed and looking for a job?: No Are you interested in more education?: No THRIVE Score: 0 AUDIT C Alcohol Use Questionnaire (AUDIT-C) 1. How often do you have a drink containing alcohol?: Monthly or less 2. How many drinks containing alcohol do you have on a typical day when you are drinking?: 1 or 2 3. How often do you have six or more drinks on one occasion?: Less than monthly Total Score: 2 ABBE-7 AMB Questionnaire ABBE-7 Date ABBE - 7 assessed: 09/29/24 Feeling nervous, anxious, or on edge: 0 = Not at all Not being able to stop or control worryin = Not at all Worrying too much about different things: 0 = Not at all Trouble relaxin = Not at all Being so restless that it is hard to sit still: 0 = Not at all Becoming easily annoyed or irritable: 0 = Not at all Feeling afraid as if something awful might happen: 0 = Not at all Total ABBE-7 score (0-4 normal; 5-9 mild; 10-14 moderate; 15-21 severe): 0 Source: Developed by Drs. Ronan Jordan, Leigh Torres, Yobani Del Rosario and colleagues, with an educational dmitri from [email or web address]. Physical exam (Primary Care) Vital Signs: Last Vital Signs Temp 97.2 F 09/29/24 10:24 Pulse 56 09/29/24 10:24 BP 136/70 09/29/24 10:24 Pulse Ox 97 09/29/24 10:24 Oxygen Delivery Method Room Air 09/29/24 10:24 BMI result Body Mass Index 33.6 Tobacco/Smoking Status: Tobacco use Status Tobacco use date assessed 09/29/24 09/29/24 10:27 Patient Tobacco Use Status Former Tobacco user 09/29/24 10:27 Tobacco use type Cigarette 09/29/24 10:27 e-Cigarette/Vaping Use Former Use 09/29/24 10:27 PHQ-9: PHQ-9 Score PHQ-9: Total score 0 09/29/24 11:05 Thrive Assessment: Date of Thrive Assessment Date Thrive assessed 09/29/24 09/29/24 10:27 Const General: cooperative and healthy appearing Nutritional Appearance: well nourished Orientation/consciousness: patient oriented x3 Limitations: no limitations HENMT Head: Yes normal to inspection Eyes General: appearance normal, both eyes and all related structures Neck Neck: Yes normal visual inspection Chest Chest palpation & inspection: normal palpation of entire chest wall Resp Effort & Inspection: normal respiratory effort Neuro General: patient oriented x3 Coding Level of Care Code New Pt Level 4 (93471) Complex EM visit Add On G2211 Diagnoses Major 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 F32.5 Assessment & Plan Assessment & Plan (1) Major 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: Code(s): F32.5 - Major depressive disorder, single episode, in full remission Category: Medical Plan: History of Present Illness The patient is a 79-year-old female presenting with anxiety and depressive symptoms. She has a lifelong history of anxiety, with previous management under the care of her past physician, Dr. Canela. Despite medication, her anxiety persisted, and increased dosages provided limited relief. Her prior experience with Zoloft was positive, providing considerable benefit in treating both anxiety and depressive episodes. Recently, her anxiety has intensified, particularly in connection with reaching a critical five-year milestone following a left upper lobectomy for lung cancer. This surgical history and the significant date heightened her anxiety and sense of accomplishment. Additionally, she has a history of peptic ulcers and generally experiences nervousness, contributing factors to her overall health perception. The patient moved a year ago to [facility], signaling a significant change in her living situation. Review of Systems - Psychiatric: Reports anxiety and depressive symptoms. Denies any other psychiatric symptoms discussed. Plan - Start Zoloft 50 mg daily for anxiety and depression, aware of past effectiveness. - Medications for emergency anxiety episodes kept as a non-daily regimen and new prescriptions sent electronically. - Scheduled follow-up in one month to evaluate progress with Zoloft. - Continue monitoring post-lobectomy status with regular visits. Patient was informed and verbally consented to the use of an ambient scribe for clinic note documentation during this visit. Discussion Notes We discussed the patient's chronic anxiety and depressive symptoms, noting the effectiveness of Zoloft in her past treatment regimen. I recommended initiating Zoloft at 50 mg daily, which the patient felt had previously managed her symptoms well. I advised that her existing medications for anxiety would remain available for emergency use only and emphasized not using them daily. I informed her about the follow-up appointment in one month to evaluate her response to the medication and monitor her condition. We agreed on the electronic prescription transfer to her preferred pharmacy and discussed that other medications through mail order could continue. Regular monitoring following her lobectomy was encouraged to ensure continued health stability. Patient Instructions - Start taking Zoloft 50 mg once daily. - Use anxiety medication only for emergencies, not daily. - supervisor mail carriers new prescriptions from the designated pharmacy. - Return for follow-up in one month to check on how the medication is working. - Stay vigilant and aware of any new symptoms related to your past surgery, and keep regular doctor appointments. Medications: New sertraline 50 mg PO DAILY 90 tabs 1RF Changed From alprazolam 0.25 mg PO BID To alprazolam 0.25 mg PO BID PRN 30 tabs 0RF anxiety
--- OUTSIDE RECORDS SUMMARY | 2024-09-29 11:32 | XMS_ITS | Patient Health Record ---
Author Organization [facility] Address [address] [place] [address] Care Team Providers Care Establishment Guide Name Role Phone Ankit Cain Primary Care [...] of [place] [address] [place] [phone] [id number] Ashlyn Stone Self - patient is the insured [employer] [address] [place] [phone] [id number] Ashlyn Stone Self - patient is the insured Medical (General) History Medical History History ICD Code fatigue vertigo GERD rhinitis hypertension COPD lung cancer port on right side Surgical History Surgery Date(Month/Year) lung surgery left lobe removed (chemo) cholecystectomy 1982 appendectomy polyps removed in throat cataract surgery right knee surgery Hospitalization History Reason Date(Month/Year) right knee surgery appendectomy cholecystectomy [id number] lung surgery X 3days
--- OUTSIDE RECORDS SUMMARY | 2024-09-29 11:32 | XMS_ITS | Clinical Summary ---
Author Organization [facility] Address [address] [place] [phone] Phone Care Team Providers Care Fish Cutter Name Role Phone Denise Bell MD Primary Care Provider [phone] Allergies Active Allergy Reactions Criticality Noted Date [...] Small cell lung cancer, left upper lobe (CMS/HCC V24, CMS/HCC V28) 04/30/2023 Overview (04/04/2024): Last Assessment & Plan: 78-year-old woman who had a da Ricardo left upper lobectomy on 09/30/2019 for what turned out to be an isolated small cell lung cancer. She has done well since that time and is followed by medical oncology at [place] and with serial CT scans through me at [place] since that time. Her most recent CT [...] the chest and a visit in the [facility] office after that. She would like to have her CT scans done at [facility] now. All questions were answered. 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 She has done well since that time and is followed by medical oncology at [place] and with serial CT scans through me at [place] since that time. Her most recent CT [...] the chest and a visit in the [facility] office after that. She would like to have her CT scans done at [facility] now. All questions were answered. Insomnia 05/22/2015 GERD (gastroesophageal reflux disease) 6 Surgical History Surgery Date Site/Laterality Comments KNEE SURGERY PROCEDURE: HISTORICAL KNEE SURGERY APPENDECTOMY 1982 PROCEDURE: [place] APPENDECTOMY CHOLECYSTECTOMY 1982 PROCEDURE: HISTORICAL CHOLECYSTECTOMY LUMBAR LAMINECTOMY PROCEDURE: HISTORICAL LUMB LAMINECTOMY OTHER SURGICAL HISTORY 09/30/2019 Left PROCEDURE: [place] THORACOSCOPY W/LOBECTOMY SINGLE LOBE; COMMENT: OTF Lobectomy - [facility] [place] OTHER SURGICAL HISTORY 09/17/2019 PROCEDURE: PULMONOLOGY BRONCHOSCOPY [...] DX:Cataract COPD (chronic obstructive pu lmonary disease) ([facility] V24, [facility] V28) DX:COPD (chronic o bstructive pulmonary disease) ([facility]) Former smoker, stopped smoki ng in distant past DX:Former smoker, stopped sm oking in distant past History of throat problem DX:His tory of throat problem Mixed hyperlipidemia DX:Mixed hy perlipidemia Migraine headache DX:Migraine he adache PONV (postoperative nausea a nd vomiting) DX:PONV (postoperative nause a and vomiting) Poor venous access DX:Poor venou s access Small cell lung cancer, left upper lobe ([facility] V24, [facility] V28) DX:Small cell lung can cer, left upper lobe (HCC) Sinus bradycardia on ECG [...] Vaccines (1 of 2) 1964 RSV Immunization Adult Patie nts (1 - 1-dose 75+ series) 2020 Cholesterol Screening (Lipid Panel) 04/23/2022 Depression Screening 04/23/2022 Falls Risk Assessment 04/23/2022 Hepatitis C Screening 04/23/2022 Medicare Annual Wellness Visit 04/23/2022 Social Influencers of Health Screening 04/23/2022 Hypertension/CHF/CAD Annual BMP Blood Test 05/03/2022 08/25/2015 Influenza Vaccine (Season Ended) 2025 Osteoporosis Screening (Bone Density Screening) 07/27/2029 07/28/2019 [...] age to complete this topic Meningococcal B Vaccine Aged Out No l onger eligible based on patient's age to complete this topic RSV Immunization Patients Un lorenzo 20 months Aged Out No longer eligible b ased on patient's age to complete this topic Varicella Vaccines Aged Out No longer eligible based on patient's age to complete this topic Procedures Procedure Name Priority Date/Time Associated Diagnosis Comments [facility] DEXA AXIAL SKELETON Routine 07/28/2019 9:50 AM EDT Other specified disorders of bone density and structure, other site ANNUAL BMP BLOOD TEST Routine 08/25/2015 from Last 3 Months or Most Recently Relevant to Health Maintenance Results * [facility] DEXA AXIAL SKELETON (07/28/2019 9:50 AM EDT) Anatomical Region Laterality Modality Mammography 07/28/2019 7:46 AM EDT Narrative 07/28/2019 9:50 AM EDT [facility] Diagnostic Imaging Department [address] [place] [address] Patient: ??ZAINAB ASKEW ?/Age/Sex: 1945 - 74 - F Unit#: ??[id number] ? Location/Status: ??SPDIMAM/REG CLI ? Mnemonic/Ordering Site: [...] probability of hip fracture of 3.6%. Code 70488 Dictating Physician: ??HERIBERTO DALEY MD Electronically Signed by: ??HERIBERTO DALEY MD Dic Date/Time: ??07/28/1949 Sign date/Time: ??07/28/1950 Procedure Note Heriberto Daley - 05/09/2022 [facility] Diagnostic Imaging Department [address] [place] [id number] Patient: ZAINAB ASKEW.O.B./Age/Sex: 1945 74 - F Unit#: [id number] Location/Status: SPDIMAM/REG CLI [facility] Ordering Physician: DENISE BELL MD Emmett Dexa [...] density of the femurs bilaterally is 0.820 gm/ki0rxoda is 81% of that of young normals [...] probability of hip fracture of 3.6%. Code 74864 Dictating Physician: HERIBERTO DALEY MD Electronically Signed by: HERIBERTO DALEY MD Dic Date/Time: 07/28/19 0949 Sign date/Time: 07/28/19 0950 Denise Bell MD IMG BI PROCEDURES Final Resul t * Annual BMP Blood Test (08/25/2015) Annual BMP Blood Test abstracted Historical Provider HEALTH MAINTENANCE Final Result from Last 3 Months or Most Recently Relevant to Health Maintenance Insurance MEDICARE [facility] MEDICAID - [place] Care Teams Fish Cutter Relationship Specialty Start Date End Date Croke, Denise M, MD [address] [place] [address] Dr Ashley MA PCP - General 05/02/23
== END 2024-09-29 11:24 | disposition home or self-care (01) ==
LOC: HO.HMCHD 10:47
PROVIDERS: PCP Internal Medicine; Visit Provider Internal Medicine
DX: F32.5 Major depressive disorder, single episode, in full remission (principal)

== ENCOUNTER → 2024-09-29 10:47 | Outpatient (BNVA) | payer MEDICARE, SELFPAY | PROVIDERS: PCP Internal Medicine; Visit Provider Internal Medicine | DX: F32.5 Major depressive disorder, single episode, in full remission (principal) | CPT/HCPCS: 99202 ==

== ENCOUNTER 2024-11-05 09:12 | Outpatient (AMB) | payer MEDICARE, SELFPAY ==
--- NOTE | 2024-11-05 09:12 | A.OFFPC_ITS ---
Vital Signs 11/05/24 09:13 Height 5 ft Weight 172 lb BMI 33.6 BP 132/76 Blood Pressure Location Lt brachial Position Sitting Pulse 57 Pulse Source Pulse Oximeter Temp 97.4 F Temp Source Axillary Pulse Oximetry (%) 99 Oxygen Delivery Method Room Air Intake Visit Reasons: 1 Month F/U Shooting Gallery Operator Required: No Accompanied by: Self / Same As Patient Allergies meperidine (From DEMEROL) Allergy (Mild, Verified 11/05/24 09:13) GI SYMPTOMS Penicillins (PCN) Allergy (Mild, Verified 11/05/24 09:13) RASH codeine (CODEINE) Adverse Reaction (Mild, Verified 11/05/24 09:13) GI UPSET morphine (MORPHINE) Adverse Reaction (Mild, Verified 11/05/24 09:13) GI UPSET Tobacco use date assessed: 11/05/24 Fall risk assessment: No Falls in past year Last assessed Fall Risk: 11/05/24 Dental Screening Dental Screen Date: 11/05/24 Did you have a dental visit in the last 12 months?: Yes Did you have a dental problem in the last 6 months where you did not have access to dental care?: No [facility] Medical History (Updated 11/05/24 @ 09:56 by Harvinder Mendoza MD) Major 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 Cataract Insomnia Poor venous access Port-A-Cath in place PONV (postoperative nausea and vomiting) GERD (gastroesophageal reflux disease) 1st degree AV block (~09/2020) Sinus bradycardia on ECG (~09/2020) Hypothyroidism Benign paroxysmal positional vertigo Former smoker, stopped smoking in distant past Small cell lung cancer, left upper lobe (~09/2019) COPD (chronic obstructive pulmonary disease) History of throat problem Migraine headache Anxiety Hyperlipemia HTN (hypertension) Surgical History History of lobectomy of lung (~09/30/19) History of bronchoscopy (~09/17/19) History of removal of cyst (~1988) History of cholecystectomy (~1982) History of appendectomy (~1982) Family History Mother Breast cancer Father Throat cancer Sister Breast cancer Lupus GI bleed Social History Household Members: Children and None Household Members Other:: lives with her son Housing: Apartment Alcohol intake: never Patient Tobacco Use Status: Former Tobacco user Tobacco use type: Cigarette Years Smoked: 25 e-Cigarette/Vaping Use: Former Use Second Hand Smoke Exposure: No service: No Current occupational status: retired 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 1. Little interest or pleasure in doing things: not at all 2. Feeling down, depressed, or hopeless: not at all 3. Trouble falling or staying asleep, or sleeping too much: not at all 4. Feeling tired or having little energy: not at all 5. Poor appetite or overeating: not at all 6. Feeling bad about yourself - or that you are a failure or have let yourself or your family down: not at all 7. Trouble concentrating on things, such as reading the newspaper or watching television: not at all 8. Moving or speaking so slowly that other people could have noticed. Or the opposite - being so fidgety or restless that you have been moving around a lot more than usual: not at all 9. Thoughts that you would be better off or of hurting yourself in some way: not at all Total score: 0 Source: Developed by Drs. Ronan Jordan, Leigh Torres, Yobani Del Rosario and colleagues, with an educational dmitri from [employer]. Thrive Questionnaire Date Thrive assessed: 11/05/24 I am a: Patient Within the past 12 months, did the food you bought not last and you didn't have the money to get more?: Never true Within the past 12 months, did you worry whether your food would run out before you got money to buy more?: Never true Do you have trouble paying for medicines?: No Do you have trouble getting transportation to medical appointments?: No Do you have trouble paying your heating and electricity bill?: No Do you have trouble taking care of your child, family member or friend?: No Do you have trouble with day-to-day activities such as bathing, preparing meals, shopping, managing finances, etc.?: No Are you currently unemployed and looking for a job?: No Are you interested in more education?: No THRIVE Score: 0 AUDIT C Alcohol Use Questionnaire (AUDIT-C) 1. How often do you have a drink containing alcohol?: Monthly or less 2. How many drinks containing alcohol do you have on a typical day when you are drinking?: 1 or 2 3. How often do you have six or more drinks on one occasion?: Less than monthly Total Score: 2 ABBE-7 AMB Questionnaire ABBE-7 Date ABBE - 7 assessed: 11/05/24 Feeling nervous, anxious, or on edge: 0 = Not at all Not being able to stop or control worryin = Not at all Worrying too much about different things: 0 = Not at all Trouble relaxin = Not at all Being so restless that it is hard to sit still: 0 = Not at all Becoming easily annoyed or irritable: 0 = Not at all Feeling afraid as if something awful might happen: 0 = Not at all Total ABBE-7 score (0-4 normal; 5-9 mild; 10-14 moderate; 15-21 severe): 0 Source: Developed by Drs. Ronan Jordan, Leigh Torres, Yobani Del Rosario and colleagues, with an educational dmitri from [employer]. Physical exam (Primary Care) Vital Signs: Last Vital Signs Temp 97.4 F 11/05/24 09:13 Pulse 57 11/05/24 09:13 BP 132/76 11/05/24 09:13 Pulse Ox 99 11/05/24 09:13 Oxygen Delivery Method Room Air 11/05/24 09:13 BMI result Body Mass Index 33.6 Tobacco/Smoking Status: Tobacco use Status Tobacco use date assessed 11/05/24 11/05/24 09:14 Patient Tobacco Use Status Former Tobacco user 11/05/24 09:14 Tobacco use type Cigarette 11/05/24 09:14 e-Cigarette/Vaping Use Former Use 11/05/24 09:14 PHQ-9: PHQ-9 Score PHQ-9: Total score 0 11/05/24 09:25 Thrive Assessment: Date of Thrive Assessment Date Thrive assessed 11/05/24 11/05/24 09:14 Advance Care Planning discussion: Exists, not on file Date of discussion: 11/05/24 Who was present: Pt Forms completed: Health Care Proxy and MOLST Time spent: 1-15 minutes, not on file Actual minutes spent: 5 Coding Level of Care Code Michelle Pt Level 4 (45118) Complex EM visit Add On G2211 Diagnoses Major 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 F32.5 Hyperlipemia E78.5 Additional Codes Vital Signs *Quality* - Advance Care Planning discussion: Exists, not on file ([id number]) Vital Signs *Quality* - Time spent: 1-15 minutes, not on file ([id number]) Assessment & Plan Assessment & Plan (1) Major 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: Code(s): F32.5 - Major depressive disorder, single episode, in full remission Category: Medical Plan: Zoloft is helping. Combination of Zoloft and Anxiolytic seems to help and keep the symptoms stable (2) Hyperlipemia: Code(s): E78.5 - Hyperlipidemia, unspecified Category: Medical Plan: Patient was encouraged to take the statins every day Plan History of Present Illness - The patient is a 79-year-old female presenting with concerns of anxiety, depression, and stomach medication management, along with hyperlipidemia. - The patient has a history of Generalized Anxiety Disorder managed with lorazepam. She previously took the medication twice daily but now takes it once daily due to the introduction of Zoloft. - She reports a history of Major Depressive Disorder and was prescribed Zoloft 50 mg one month ago. She observes improvement, noting that it took time for effects to be evident. - Gastroesophageal Reflux Disease is a concern because the medication sourced from [facility] is deemed ineffective. She had better symptom control with a [facility] formulation and requests prescription reassessment. - Hyperlipidemia is a significant issue, with prior lab results showing high cholesterol. The patient decreased cholesterol medication dosage in the last two weeks, suspecting the medication of causing muscle cramps. She reports fluid intake but questions the medication's side effects. Current plan involves continuing the original cholesterol medication dosage as advised. Social History - The patient lives independently and maintains self-care. - She has a healthcare proxy designated as her son, Bronson Stone, who is employed as a wildland firefighter. - Dietary concerns include love for eggs and a challenge in adhering to a low- carbohydrate diet. Review of Systems - Psychiatric: Reports improved anxiety and depressive symptoms with current medication regimen. - Endocrine: Denies additional symptoms apart from known hypothyroidism. - Gastrointestinal: Reports that the current stomach medication is ineffective; previously effective with a different brand. - Musculoskeletal: Reports frequent muscle cramps, possible relation to cholesterol medication. Physical Exam General: Cooperative and healthy appearing Nutritional Appearance: Well nourished Orientation/consciousness: Patient oriented x3 Limitations: No limitations Head: Normal to inspection General: Appearance normal, both eyes and all related structures Neck: Normal visual inspection Chest: Normal palpation of entire chest wall Respiratory: Cuts in breathing due to weight ormal respiratory effort Neurology: Patient oriented x3 Results - Labs: High cholesterol noted in lab results from June. Plan 1. Generalized Anxiety Disorder - Continue lorazepam once daily, with current management appearing effective alongside Zoloft. 2. Major Depressive Disorder, Recurrent, Moderate - Maintain Zoloft 50 mg daily, with patient observing improvement. 3. Gastroesophageal Reflux Disease Gerd - Issue prescription change for stomach medication due to current brand ineffectiveness. 4. Hyperlipidemia - Resume prescribed cholesterol medication dosage. - Encourage evening hydration. - Advise dietary modifications focusing on reduced fat and carbohydrates. 5. Hypothyroidism, Unspecified - Confirm thyroid medication sent to [facility]. Discussion Notes I discussed the management of the patient's anxiety and depressive symptoms, highlighting the effectiveness of the current medications, Zoloft and lorazepam. A prescription adjustment for her stomach medication was addressed due to issues with the current form from [facility]. The importance of controlling her hyperlipidemia was emphasized, with a recommendation to resume the prescribed cholesterol medication dosage due to high lab values. We reviewed the potential causes of her muscle cramps and advised increased hydration and dietary modifications for lipid management. I reassured the patient that her thyroid medication will continue to be managed as prescribed to be sent to [facility]. We agreed on a follow-up in six months to reassess her health status and address any emerging concerns. Patient Instructions - Continue taking your lorazepam and Zoloft as currently prescribed for anxiety and depression. - A new prescription will be provided for your stomach medication, as previously discussed. - Resume taking your cholesterol medication as initially prescribed. - Increase your hydration, particularly in the evenings, to help with muscle cramps. - Focus on low-fat and low-carbohydrate food intake to help manage cholesterol. - Confirm your thyroid medication is sourced from [facility]. Medications: Changed From alprazolam 0.25 mg PO BID PRN 30 tabs 0RF anxiety To alprazolam 0.25 mg PO DAILY 30 tabs 0RF anxiety 30 days Refilled sertraline 50 mg PO DAILY 90 tabs 1RF levothyroxine 25 mcg PO DAILY 90 tabs 1RF
[2024-11-05 09:13] VITALS: BP 132/76; PULSE 57; TEMP 36.3; O2SAT 99; BMI 33.6
--- OUTSIDE RECORDS SUMMARY | 2024-11-05 10:00 | XMS_ITS | Patient Health Record ---
Author Organization [facility] Address [address] [place] [address] Care Team Providers Care Fish Seiner Name Role Phone Ankit Cain Primary Care [...] of [place] [address] [place]A TORREZ [phone] [id number] Ashlny Stone Self - patient is the insured [employer] [address] [place] [address] [phone] [id number] Ashlyn Stone Self - patient is the insured Medical (General) History Medical History History ICD Code fatigue vertigo GERD rhinitis hypertension COPD lung cancer port on right side Surgical History Surgery Date(Month/Year) lung surgery left lobe removed (chemo) cholecystectomy 1982 appendectomy polyps removed in throat cataract surgery right knee surgery Hospitalization History Reason Date(Month/Year) right knee surgery appendectomy cholecystectomy [id number] lung surgery X 3days
== END 2024-11-05 09:44 | disposition home or self-care (01) ==
LOC: HO.HMCHD 09:12
PROVIDERS: PCP Internal Medicine; Visit Provider Internal Medicine
DX: F32.5 Major depressive disorder, single episode, in full remission (principal); E78.5 Hyperlipidemia, unspecified; Z00.00 Encounter for general adult medical examination without abnormal findings

== ENCOUNTER → 2024-11-05 09:12 | Outpatient (BNVA) | payer MEDICARE, SELFPAY | PROVIDERS: PCP Internal Medicine; Visit Provider Internal Medicine | DX: F32.5 Major depressive disorder, single episode, in full remission (principal); E78.5 Hyperlipidemia, unspecified; Z87.891 Personal history of nicotine dependence | CPT/HCPCS: 99212 ==

== ENCOUNTER 2025-02-09 08:01 | Outpatient (REF) | payer MEDICARE, SELFPAY ==
[2025-02-09 11:00] LABS: Blood Urea Nitrogen 12 mg/dL (9-16); Estimated Glomerular Filt Rate > 60
== END 2025-02-09 08:02 | disposition home or self-care (01) ==
LOC: HO.10HDL 08:01
PROVIDERS: Visit Provider Internal Medicine
DX: C34.90 Malignant neoplasm of unspecified part of unspecified bronchus or lung (principal)
CPT/HCPCS: 36415; 82565; 84520

== ENCOUNTER 2025-02-10 08:53 | Outpatient (REF) | payer MEDICARE, SELFPAY ==
--- NOTE | ~2025-02-10 | CT_ITS ---
CLINICAL HISTORY: Surveillance, history of lung cancer Exam: CT chest with IV contrast Comparison: CT/REG/DE/SR - CT CHEST WO IV CON - 11/08/23 07:35 EDT Findings: Status post left upper lobectomy, compensatory expansion of left lower lobe, mediastinal shift to the left and elevated left hemidiaphragm, unchanged. New spiculated solid nodule 8 x 9 mm in the medial apical region of the left lower lobe on series 4, image 27. Stable right middle lobe atypical thick wall cystic nodule 6 x 7 mm on image 75. Stable left greater than right mild paraseptal emphysema and subpleural interstitial reticulation/fibrosis. Right anterior lateral lower lobe parenchymal scar unchanged. No consolidation, pleural effusion or pneumothorax. Heart size is normal. Nonaneurysmal aorta. Atherosclerotic disease. Right IJ approach MediPort tip in the cavoatrial junction. No lymphadenopathy. Imaged lower neck, chest wall are unremarkable. Hepatic steatosis. No acute fracture or suspicious osseous lesion. Unchanged anterior wedging compression deformity of the T9-T11. Degenerative changes of the thoracic spine. Impression: 1. New spiculated pulmonary nodule 9 x 8 mm medial apical left lower lobe, suspicious for malignancy, recommend PET-CT or tissue sampling. 2. Stable atypical thick walled cystic nodule 6 x 7 mm right middle lobe, continued attention on follow-up exam. 3. Stable postsurgical changes from left upper lobectomy. 4. Additional stable chronic findings. This document has been electronically signed by: Viviana Stephenson MD on 02/11/2025 15:05:22
--- OUTSIDE RECORDS SUMMARY | 2025-02-10 10:06 | XMS_ITS | Clinical Summary ---
Author Organization [facility] Address [address] [place] [id number] Phone Care Team Providers Care Boring Machine Set Up Operator Jig Name Role Phone Denise Bell MD Primary Care Provider [phone] Allergies Active Allergy Reactions Criticality Noted Date [...] and is followed by medical oncology at [facility] and with serial CT scans through me at [facility] since that time. Her most recent CT [...] the chest and a visit in the [facility] office after that. She would like to have her CT scans done at [facility] now. All questions were answered. 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 She has done well since that time and is followed by medical oncology at [facility] and with serial CT scans through me at [facility] since that time. Her most recent CT [...] the chest and a visit in the [facility] office after that. She would like to have her CT scans done at [facility] now. All questions were answered. Insomnia 05/22/2015 GERD (gastroesophageal reflux disease) 6 Surgical History Surgery Date Site/Laterality Comments KNEE SURGERY PROCEDURE: HISTORICAL KNEE SURGERY APPENDECTOMY 1982 PROCEDURE: [place] APPENDECTOMY CHOLECYSTECTOMY 1982 PROCEDURE: HISTORICAL CHOLECYSTECTOMY LUMBAR LAMINECTOMY PROCEDURE: HISTORICAL LUMB LAMINECTOMY OTHER SURGICAL HISTORY 09/30/2019 Left PROCEDURE: [place] THORACOSCOPY W/LOBECTOMY SINGLE LOBE; COM[place] [facility] [place] SURGICAL HISTORY 09/17/2019 PROCEDURE: PULMONOLOGY BRONCHOSCOPY [...] DX:Cataract COPD (chronic obstructive pu lmonary disease) ([facility] V24, [facility] V28) DX:COPD (chronic o bstructive pulmonary disease) ([facility]) Former smoker, stopped smoki ng in distant past DX:Former smoker, stopped sm oking in distant past History of throat problem DX:His tory of throat problem Mixed hyperlipidemia DX:Mixed hy perlipidemia Migraine headache DX:Migraine he adache PONV (postoperative nausea a nd vomiting) DX:PONV (postoperative nause a and vomiting) Poor venous access DX:Poor venou s access Small cell lung cancer, left upper lobe ([facility] V24, [facility] V28) DX:Small cell lung can cer, left [...] 59 05/29/2024 9:42 AM EST Temperature 36.5 C (97.7 F) 05/29/2024 9:42 AM EST Respiratory Rate 18 05/29/2024 9:42 AM EST [...] series) 2020 Cholesterol Screening (Lipid Panel) 04/23/2022 Falls Risk Assessment 04/23/2022 Hepatitis C Screening 04/23/2022 Medicare Annual Wellness Visit 04/23/2022 Social Influencers of Health Screening 04/23/2022 Hypertension/CHF/CAD Annual BMP Blood Test 05/03/2022 08/25/2015 Depression Screening 05/21/2024 Influenza Vaccine (#1) 2025 Osteoporosis Screening (Bone Density Screening) 07/27/2029 [...] Procedure Name Priority Date/Time Associated Diagnosis Comments [facility] DEXA AXIAL SKELETON Routine 07/28/2019 9:50 AM EDT Other specified disorders of bone density and structure, other site ANNUAL BMP BLOOD TEST Routine 08/25/2015 from Last 3 Months or Most Recently Relevant to Health Maintenance Results * [facility] DEXA AXIAL SKELETON (07/28/2019 9:50 AM EDT) Anatomical Region Laterality Modality Mammography 07/28/2019 7:46 AM EDT Narrative 07/28/2019 9:50 AM EDT [facility] Diagnostic Imaging Department [address] [place] [address] Patient: ZAINAB ASKEW D.O.B./Age/Sex: 1945 - 74 - F Unit#: [id number] Location/Status: SPDIMAM/REG CLI Mnemonic/Ordering [facility] Ordering Physician: DENISE BELL MD [facility] Dexa Axial Skeleton - 07/28/19829 HISTORY: The patient is a 74-year-old postmenopausal female with clinical concern for metabolic bone disease. FINDINGS: Dual [...] 101% of that of age matched controls. This yields a T-score of -1.5 and a Z-score of 0.1 which is diagnostic of osteopenia. The T-score of the right femoral neck is -1.8 and that of the left femoral neck is -2.0 which is diagnostic of osteopenia. IMPRESSION: 1. Osteopenia. There has been an increase of 7.3% in bone mineral density in the lumbar spine since the prior examination of 04/09/2012. There has been a decrease of 0.4% in bone mineral density in the right femur and a decrease of 10.8% in bone mineral density in the left femur. 2. FRAX analysis yields a 10-year probability of major osteoporotic fracture of 17.6% and a 10-year probability of hip fracture of 3.6%. Code 59588 Dictating Physician: HERIBERTO DALEY MD Electronically Signed by: HERIBERTO DALEY MD Dic Date/Time: 07/28/1949 Sign date/Time: 07/28/19949 Procedure Note Heriberto Daley - 05/09/2022 [facility] Diagnostic Imaging Department [address] [place] [address] Patient: ZAINAB ASKEW./Age/Sex: 1945 - 74 - F Unit#: [id number] Location/Status: SPDIMAM/REG CLI Mnemonic/[facility]ing [facility] Ordering Physician: DENISE BELL MD [facility] Dex[facility] [...] density of the femurs bilaterally is 0.820 gm/dp2odurv is 81% of that of young normals [...] probability of hip fracture of 3.6%. Code 03398 Dictating Physician: HERIBERTO DALEY MD Electronically Signed by: HERIBERTO DALEY MD Dic Date/Time: 07/28/1949 Sign date/Time: 03/09/20 0950 us Denise Bell MD IMG BI PROCEDURES Final Resul t * Annual BMP Blood Test (08/25/2015) Annual BMP Blood Test abstracted us Historical Provider HEALTH MAINTENANCE Final Result from Last 3 Months or Most Recently Relevant to Health Maintenance Insurance MEDICARE [facility] MEDICAID - [place] Care Teams Boring Machine Set Up Operator Jig Relationship Specialty Start Date End Date Denise Bell MD [address] [place] [address] [facility] [place] PCP - General 05/02/23
--- OUTSIDE RECORDS SUMMARY | 2025-02-10 10:06 | XMS_ITS | Patient Health Record ---
Author Organization [facility] Address [address] [facility] [address] [place] [address] Care Team Providers Care Tariff Expert Name Role Phone Ankit Cain Primary Care [...] of [place] [address] [place] [phone] [id number] Ashlyn Stone Self - patient is the insured [employer] [address] [place] [address] [phone] [id number] Ashlyn Stone Self - patient is the insured Medical (General) History Medical History History ICD Code fatigue vertigo GERD rhinitis hypertension COPD lung cancer port on right side Surgical History Surgery Date(Month/Year) lung surgery left lobe removed (chemo) cholecystectomy 1982 appendectomy polyps removed in throat cataract surgery right knee surgery Hospitalization History Reason Date(Month/Year) right knee surgery appendectomy cholecystectomy [id number] lung surgery X 3days
== END 2025-02-10 08:54 | disposition home or self-care (01) ==
LOC: HO.CT 08:53
PROVIDERS: PCP Student in an Organized Health Care Education/Training Program; Visit Provider Internal Medicine
DX: C34.90 Malignant neoplasm of unspecified part of unspecified bronchus or lung (principal)
CPT/HCPCS: 71260; Q9967

== ENCOUNTER → 2025-02-10 08:56 | Outpatient (BNV) | payer MEDICARE, SELFPAY | PROVIDERS: PCP Student in an Organized Health Care Education/Training Program; Visit Provider Radiology Diagnostic Radiology | DX: R91.1 Solitary pulmonary nodule (principal) | CPT/HCPCS: 71260 ==

== ENCOUNTER 2025-03-23 08:47 | Outpatient (AMB) | payer MEDICARE, SELFPAY ==
[2025-03-23 08:57] VITALS: BP 156/70; PULSE 60; RESP 14; TEMP 36.6; O2SAT 96
--- NOTE | 2025-03-23 08:57 | A.OFFPC_ITS ---
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 Required: No Accompanied by: Self / Same As Patient Allergies meperidine (From DEMEROL) Allergy (Mild, Verified 03/23/25 08:58) GI SYMPTOMS Penicillins (PCN) Allergy (Mild, Verified 03/23/25 08:58) RASH codeine (CODEINE) Adverse Reaction (Mild, Verified 03/23/25 08:58) GI UPSET morphine (MORPHINE) Adverse Reaction (Mild, Verified 03/23/25 08:58) GI UPSET Tobacco use date assessed: 11/05/24 Dental Screening Dental Screen Date: 11/05/24 [facility] Medical History (Updated 03/23/25 @ 09:42 by Harvinder Mendoza MD) Major 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 Cataract Insomnia Poor venous access Port-A-Cath in place PONV (postoperative nausea and vomiting) GERD (gastroesophageal reflux disease) 1st degree AV block (~09/2020) Sinus bradycardia on ECG (~09/2020) Hypothyroidism Benign paroxysmal positional vertigo Former smoker, stopped smoking in distant past Small cell lung cancer, left upper lobe (~09/2019) COPD (chronic obstructive pulmonary disease) History of throat problem Migraine headache Anxiety Hyperlipemia HTN (hypertension) Surgical History History of lobectomy of lung (~09/30/19) History of bronchoscopy (~09/17/19) History of removal of cyst (~1988) History of cholecystectomy (~1982) History of appendectomy (~1982) Family History Mother Breast cancer Father Throat cancer Sister Breast cancer Lupus GI bleed Social History Household Members: Children and None Household Members Other:: lives with her son Housing: Apartment Alcohol intake: never Patient Tobacco Use Status: Former Tobacco user Tobacco use type: Cigarette Years Smoked: 25 e-Cigarette/Vaping Use: Former Use Second Hand Smoke Exposure: No service: No Current occupational status: retired 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 1. Little interest or pleasure in doing things: not at all 2. Feeling down, depressed, or hopeless: not at all 3. Trouble falling or staying asleep, or sleeping too much: not at all 4. Feeling tired or having little energy: not at all 5. Poor appetite or overeating: not at all 6. Feeling bad about yourself - or that you are a failure or have let yourself or your family down: not at all 7. Trouble concentrating on things, such as reading the newspaper or watching television: not at all 8. Moving or speaking so slowly that other people could have noticed. Or the opposite - being so fidgety or restless that you have been moving around a lot more than usual: not at all 9. Thoughts that you would be better off or of hurting yourself in some way: not at all Total score: 0 Source: Developed by Drs. Ronan Jordan, Leigh Torres, Yobani Del Rosario and colleagues, with an educational dmitri from [employer]. Thrive Questionnaire Date Thrive assessed: 11/05/24 I am a: Patient Within the past 12 months, did the food you bought not last and you didn't have the money to get more?: Never true Within the past 12 months, did you worry whether your food would run out before you got money to buy more?: Never true Do you have trouble paying for medicines?: No Do you have trouble getting transportation to medical appointments?: No Do you have trouble paying your heating and electricity bill?: No Do you have trouble taking care of your child, family member or friend?: No Do you have trouble with day-to-day activities such as bathing, preparing meals, shopping, managing finances, etc.?: No Are you currently unemployed and looking for a job?: No Are you interested in more education?: No THRIVE Score: 0 AUDIT C Alcohol Use Questionnaire (AUDIT-C) 1. How often do you have a drink containing alcohol?: Monthly or less 2. How many drinks containing alcohol do you have on a typical day when you are drinking?: 1 or 2 3. How often do you have six or more drinks on one occasion?: Less than monthly Total Score: 2 ABBE-7 AMB Questionnaire ABBE-7 Date ABBE - 7 assessed: 11/05/24 Feeling nervous, anxious, or on edge: 0 = Not at all Not being able to stop or control worryin = Not at all Worrying too much about different things: 0 = Not at all Trouble relaxin = Not at all Being so restless that it is hard to sit still: 0 = Not at all Becoming easily annoyed or irritable: 0 = Not at all Feeling afraid as if something awful might happen: 0 = Not at all Total ABBE-7 score (0-4 normal; 5-9 mild; 10-14 moderate; 15-21 severe): 0 Source: Developed by Drs. Ronan Jordan, Leigh Torres, Yobani Del Rosario and colleagues, with an educational dmitri from [employer]. Physical exam (Primary Care) Vital Signs: Last Vital Signs Temp 97.9 F 03/23/25 08:57 Pulse 60 03/23/25 08:57 Resp 14 03/23/25 08:57 BP 156/70 H 03/23/25 08:57 Pulse Ox 96 03/23/25 08:57 Oxygen Delivery Method Room Air 03/23/25 08:57 Tobacco/Smoking Status: Tobacco use Status Tobacco use date assessed 11/05/24 03/23/25 08:59 Patient Tobacco Use Status Former Tobacco user 03/23/25 08:59 Tobacco use type Cigarette 03/23/25 08:59 e-Cigarette/Vaping Use Former Use 03/23/25 08:59 PHQ-9: PHQ-9 Score PHQ-9: Total score 0 03/23/25 09:08 Thrive Assessment: Date of Thrive Assessment Date Thrive assessed 11/05/24 03/23/25 08:59 Office Procedures Flu Questionnaire Does the patient have a severe egg allergy?: No Does the patient have severe life threatening allergies?: No Does the patient have a fever or illness today?: No Has the patient ever had Guillain-Richmond Syndrome?: No Has the patient ever had any past reaction to a flu shot?: No Immunizations Fluarix [id number] (PF) 45 mcg (15 mcg x 3)/0.5 mL IM syringe Performing Provider: Harvinder Mendoza MD [facility] Documented (not given) by: GARRY Reed on 03/23/25 09:07 Reason Not Given: Patient Refused Coding Level of Care Code Est Pt Level 4 (95329) Complex EM visit Add On G2211 Diagnoses HTN (hypertension) I10 Assessment & Plan Assessment & Plan (1) HTN (hypertension): Code(s): I10 - Essential (primary) hypertension Category: Medical Plan: Increase dosage of atenolol to 25 mg a day for a month. Continue to monitor bp Plan History of Present Illness - The patient is an 80-year-old female who presents for a follow-up visit for medication management and anxiety over delayed test results. - She has a history of lung cancer, for which she had her upper lobe removed 5 years ago and received chemotherapy. - A recent CT scan revealed a new, small nodule in her lower lobe, for which a PET scan was performed 3 weeks ago. - She is experiencing significant nervousness and elevated blood pressure due to delays in receiving the PET scan report. - The patient's medication list was reviewed and she confirms taking an inhaler, alprazolam, atenolol (half a tablet), a statin, budesonide, vitamin D, furosemide 40 mg once daily, levothyroxine, and meclizine. - She states she cannot take the prescribed Nexium for her stomach due to the high cost, and a previous medication was not effective. - She is requesting refills for atenolol and sertraline (Zoloft). - She has a history of COPD, for which she uses a nebulizer at night. - She also has a history of recurrent UTIs. - Recent lab work from December was normal, including potassium, cholesterol, and urinalysis. Social History - Nutrition: Patient reports a tendency to eat when nervous. Review of Systems - Constitutional: Reports weight gain. - Cardiovascular: Reports elevated blood pressure reading today. - Respiratory: Reports using inhaler and nebulizer for COPD. - Genitourinary: Denies current UTI symptoms, but notes a history of recurrent infections. - Psychiatric: Reports nervousness and anxiety. Physical Exam General: Cooperative and healthy appearing Nutritional Appearance: Well nourished Orientation/consciousness: Patient oriented x3 Limitations: No limitations Head: Normal to inspection General: Appearance normal, both eyes and all related structures Neck: Normal visual inspection Chest: Normal palpation of entire chest wall Respiratory: Patient reports using an inhaler and nebulizer at night as ordered. No current need to see a pulmonary doctor. ormal respiratory effort Neurology: Patient oriented x3. Reports anxiety and high blood pressure due to nervousness about medical results. Results - Imaging: Patient reports a PET scan was performed 3 weeks ago, with results pending. - Imaging: Reports that a prior CT scan at [facility] showed a small nodule in the lower lung lobe. - Labs: Blood work from December, including potassium, cholesterol, and urinalysis, was normal. Plan - Hypertension: No change in medication will be made at this time as the elevated reading is attributed to anxiety. - Anxiety/Lung Nodule: Patient advised that she will receive the PET scan results once available. - Medication Refills: A new prescription for atenolol will be sent to [facility], and a refill for sertraline will be sent to [facility]. - GERD: A new medication will be prescribed for her stomach issues as an alternative to the unaffordable Nexium. - Health Maintenance: The patient will receive an influenza vaccination today. - COPD: Patient advised to continue her current treatment, including her inhaler and nebulizer. - Lifestyle: Advised to reduce carbohydrate intake for weight management and to continue monitoring her blood pressure. - Labs: No new blood work is needed at this time as recent labs in December were unremarkable. Discussion Notes I discussed with the patient that her blood pressure is a little high today, but I believe this is due to anxiety over her pending test results, so we will not change her medication at this time. I reassured her that she will be okay and receive the results when they are available. I confirmed I will send refills for her atenolol to [facility] and sertraline to [facility]. We will try a different medication for her stomach issues since her insurance will not cover Nexium. I advised her that she does not need to see her pulmonary doctor for COPD right now and should continue her current spray and nebulizer treatments. We discussed that her blood work from December was normal, so no new tests are needed today. I recommended she reduce her carbohydrate intake to help with weight management. She consented to receiving the flu shot during today's visit. Patient Instructions - Your blood pressure was a little high today, which we think is due to stress. - Please continue to check your blood pressure at home. - Continue taking your current medications as prescribed. - I am sending refills for your atenolol to your mail-order pharmacy ([facility]) and for your sertraline (Zoloft) to [facility]. - We will try a different medication for your stomach because your insurance won't pay for Nexium. - To help with your weight, try to eat fewer carbohydrates like bread and pasta. - Continue using your inhaler and the nebulizer machine at night. - You will receive your flu shot today. Orders: Orders Influenza [id number] Immunization Today Z23 - Encounter for immunization Medications: New pantoprazole 40 mg PO DAILY 90 tabs 1RF Refilled sertraline 50 mg PO DAILY 90 tabs 1RF atenolol takes 12.5mg daily 12.5 mg (1/2 x 25 mg) PO DAILY 90 tabs 3RF sertraline 50 mg PO DAILY 90 tabs 1RF atenolol takes 12.5mg daily 12.5 mg (1/2 x 25 mg) PO DAILY 90 tabs 3RF
--- OUTSIDE RECORDS SUMMARY | 2025-03-23 09:21 | XMS_ITS | Patient Health Record ---
Author Organization [facility] Address [address] [facility] [address] [place] [address] Care Team Providers Care Phlebotomy Services Technician Name Role Phone Ankit Cain Primary Care [...] of [place] [address] [place] [phone] [id number] Ashlyn Stone Self - patient is the insured [employer] [address] [place] [phone] [id number] Ashlyn Stone Self - patient is the insured Medical (General) History Medical History History ICD Code fatigue vertigo GERD rhinitis hypertension COPD lung cancer port on right side Surgical History Surgery Date(Month/Year) lung surgery left lobe removed (chemo) cholecystectomy 1982 appendectomy polyps removed in throat cataract surgery right knee surgery Hospitalization History Reason Date(Month/Year) right knee surgery appendectomy cholecystectomy [id number] lung surgery X 3days
--- OUTSIDE RECORDS SUMMARY | 2025-03-23 09:22 | XMS_ITS | Clinical Summary ---
Author Organization [facility] Address [address] [place] [id number] Phone Care Team Providers Care Spine Surgeon Name Role Phone Denise Bell MD Primary Care Provider [phone] Allergies Active Allergy Reactions Criticality Noted Date [...] and is followed by medical oncology at [facility] and with serial CT scans through me at [facility] since that time. Her most recent CT [...] the chest and a visit in the [facility] office after that. She would like to have her CT scans done at [facility] now. All questions were answered. 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 She has done well since that time and is followed by medical oncology at [facility] and with serial CT scans through me at [facility] since that time. Her most recent CT [...] the chest and a visit in the [facility] office after that. She would like to have her CT scans done at [facility] now. All questions were answered. Insomnia 05/22/2015 GERD (gastroesophageal reflux disease) 6 Encounters Date Type Department Care Team Description 03/03/2025 3:15 PM EDT - 03/03/2025 11:59 PM EDT Hospital Encounter [facility] PET Scan [address] [place] [id number] Small cell lung cancer, left lower lobe ([facility] V24, [facility] V28) Discharge Disposition: Home or Self Care from Last 3 Months Surgical History Surgery Date Site/Laterality Comments KNEE SURGERY PROCEDURE: HISTORICAL KNEE SURGERY APPENDECTOMY 1982 PROCEDURE: MS APPENDECTOMY CHOLECYSTECTOMY 1982 PROCEDURE: HISTORICAL CHOLECYSTECTOMY LUMBAR LAMINECTOMY PROCEDURE: HISTORICAL LUMB LAMINECTOMY OTHER SURGICAL HISTORY 09/30/2019 Left PROCEDURE: MS THORACOSCOPY W/LOBECTOMY SINGLE LOBE; COMMENT: OTF Lobectomy - [facility] OTHER SURGICAL HISTORY 09/17/2019 PROCEDURE: PULMONOLOGY BRONCHOSCOPY [...] DX:Cataract COPD (chronic obstructive pu lmonary disease) ([facility] V24, [facility] V28) DX:COPD (chronic o bstructive pulmonary disease) ([facility]) Former smoker, stopped smoki ng in distant past DX:Former smoker, stopped sm oking in distant past History of throat problem DX:His tory of throat problem Mixed hyperlipidemia DX:Mixed hy perlipidemia Migraine headache DX:Migraine he adache PONV (postoperative nausea a nd vomiting) DX:PONV (postoperative nause a and vomiting) Poor venous access DX:Poor venou s access Small cell lung cancer, left upper lobe ([facility] V24, [facility] V28) DX:Small cell lung can cer, left [...] (Lipid Panel) 04/23/2022 Falls Risk Assessment 04/23/2022 Medicare Annual Wellness Visit 04/23/2022 Social [...] Procedure Name Priority Date/Time Associated Diagnosis Comments [facility] DEXA AXIAL SKELETON Routine 07/28/2019 9:50 AM EDT Other specified disorders of bone density and structure, other site ANNUAL BMP BLOOD TEST Routine 08/25/2015 from Last 3 Months or Most Recently Relevant to Health Maintenance Results * [facility] DEXA AXIAL SKELETON (07/28/2019 9:50 AM EDT) Anatomical Region Laterality Modality Mammography 07/28/2019 7:46 AM EDT Narrative 07/28/2019 9:50 AM EDT [facility] Diagnostic Imaging Department [address] [place], [place] [id number] Patient: ZAINAB ASKEW /Age/Sex: 1945 - 74 - F Unit#: [id number] Location/Status: SPDIMAM/REG CLI Mnemonic[facility] Ordering Physician: DENISE BELL MD [facility] Dexa Axial Skeleton - 07/28/19 - 829 HISTORY: The patient is a 74-year-old postmenopausal [...] probability of hip fracture of 3.6%. Code 78018 Dictating Physician: HERIBERTO DALEY MD Electronically Signed by: HERIBERTO DALEY MD Dic Date/Time: 07/28/1949 Sign date/Time: 07/28/1950 Procedure Note Heriberto Daley - 05/09/2022 [facility] Diagnostic Imaging Department [address] [place] [address] Patient: ZAINAB ASKEW.O.B./Age/Sex: 1945 - 74 - F Unit#: [id number] Location/Status: SPDIMAM/REG CLI Mnemonic/Ordering Site: [facility]X/SPMAM Ordering Physician: DENISE BELL MD [facility] Dexa [...] density of the femurs bilaterally is 0.820 gm/ia8ccuku is 81% of that of young normals [...] probability of hip fracture of 3.6%. Code 56851 Dictating Physician: HERIBERTO DALEY MD Electronically Signed by: HERIBERTO DALEY MD Dic Date/Time: 07/28/19948 Sign date/Time: 07/28/19 0950 Denise Bell MD IMG BI PROCEDURES Final Resul t * Annual BMP Blood Test (08/25/2015) Annual BMP Blood Test abstracted us Historical Provider HEALTH MAINTENANCE Final Result from Last 3 Months or Most Recently Relevant to Health Maintenance Insurance MEDICARE [facility] MEDICAID - [place] Care Teams Spine Surgeon Relationship Specialty Start Date End Date Denise Bell MD [address] [place] [address] Dr Ashley [place] PCP - General 05/02/23
== END 2025-03-23 09:43 | disposition home or self-care (01) ==
LOC: HO.HMCSH 08:47
PROVIDERS: PCP Internal Medicine; Visit Provider Internal Medicine
DX: Z23 Encounter for immunization (principal); I10 Essential (primary) hypertension

== ENCOUNTER → 2025-03-23 08:47 | Outpatient (BNVA) | payer MEDICARE, SELFPAY | PROVIDERS: PCP Internal Medicine; Visit Provider Internal Medicine | DX: Z71.2 Person consulting for explanation of examination or test findings (principal); I10 Essential (primary) hypertension; F41.9 Anxiety disorder, unspecified; K21.9 Gastro-esophageal reflux disease without esophagitis; J44.9 Chronic obstructive pulmonary disease, unspecified | CPT/HCPCS: 90471; 96127; 99212 ==